=== PATIENT | male | born 1930 | race Caucasian/White ===

== ENCOUNTER 2017-09-15 13:58 | Emergency (ER) | payer MEDICARE, BC ==
[2017-09-15] MEDS ORDERED: Lidocaine 1% 20 ML MDV INJECT ONE (14:38)
--- NOTE | 2017-09-15 14:44 | EDM.PDOC ---
ED HPI GENERAL MEDICAL PROBLEM - General Chief Complaint: Laceration Stated Complaint: INJURY TO LIP FROM FALL Time Seen by Provider: 09/15/17 14:30 Source of Information: Reports: Patient History Limitations: Reports: No Limitations - History of Present Illness INITIAL COMMENTS - FREE TEXT/NARRATIVE: HISTORY AND PHYSICAL: History of present illness: [Patient comes to the emergency room for evaluation of an upper lip laceration. Around 10:30 this morning he stood quickly from a seated position to answer the door nicole. He began to feel lightheaded, which is normal for him upon first awakening in the morning, and fell, hitting his mouth and nose on the floor. provides his history as patient has some memory loss. Denies LOC. No pain to face and teeth. Bleeding from L nare. Patient and reside at [facility]. Daughter is at bedside. He has no other complaints or concerns at this time. Review of systems: As per history of present illness and below otherwise all systems reviewed and negative. Past medical history: As per history of present illness and as reviewed below otherwise noncontributory. Surgical history: As per history of present illness and as reviewed below otherwise noncontributory. Social history: No reported history of drug or alcohol abuse. Family history: As per history of present illness and as reviewed below otherwise noncontributory. Physical exam: HEENT: Right mid upper lip shows a 2 mm hole. Upper lip appears mutilated and wound edges are difficult to approximate. Small superficial abrasion to left nare. Small abrasions and contusions to nose. Nontender w/ palpation. Throat is clear. Teeth show no chips and are not loose with palpation. No tenderness over zygomatic arches or facial bones. Extremities: Atraumatic, negative for cords or calf pain. Neurovascular unremarkable. Neuro: Awake, alert, oriented. Is appropriate in conversation. Poor historian. Exam nonfocal. Diagnostics: [head CT w/o contrast with special attention to facial bones] Impression: [lip laceration fall lightheadedness] Plan: Wound is closed. See procedure note. Head and face CT's show no abnormalities. Return to ER in 5 days for suture removal. And family is in agreement with today 's plan. ] Definitive disposition and diagnosis as appropriate pending reevaluation and review of above. - Related Data Allergies Allergy/AdvReac Type Severity Reaction Status Date / Time No Known Allergies Allergy Verified 12/08/17 14:17 Home Meds: Home Meds Digoxin [Digoxin] 125 mcg PO BEDTIME 05/24/15 [History] Levothyroxine 75 mcg PO ACBREAKFAST 05/24/15 [History] Tamsulosin [Flomax] 1 cap PO BEDTIME 05/24/15 [History] Warfarin [Coumadin] 4 mg PO BEDTIME 05/24/15 [History] Ca Carbonate/Vitamin D3/Vit K [Calcium + D Soft Chewable Tab] 1 each PO DAILY [History] Donepezil [Aricept] 10 mg PO BEDTIME 09/03/15 [History] Lutein/Minerals/Vit A,C & E [Ocuvite] 2 each PO DAILY 09/03/15 [History] Memantine [Namenda] 10 mg PO DAILY 09/03/15 [History] Multivitamin [Multi-Vitamin Daily] 1 each PO DAILY 09/03/15 [History] Past Medical History 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 Other Cardiovascular History: low blood pressure Other Gastrointestinal History: tumor Endocrine/Metabolic History: Reports: Hypothyroidism - Infectious Disease History Infectious Disease History: Reports: Chicken Pox - Past Surgical History Cardiovascular Surgical History: Reports: AAA Repair Social & Family History - Family History Family Medical History: Noncontributory - Tobacco Use Smoking Status *Q: Never Smoker Second Hand Smoke Exposure: No - Recreational Drug Use Recreational Drug Use: No ED ROS GENERAL - Review of Systems Review Of Systems: ROS reveals no pertinent complaints other than HPI. ED EXAM, SKIN/RASH Exam: See Below Course - Vital Signs Last Recorded V/S: Last Vital Signs Temp 97.3 F 09/15/17 14:17 Pulse 70 09/15/17 14:17 Resp 18 09/15/17 14:17 BP 138/94 H 09/15/17 14:17 Pulse Ox 95 09/15/17 14:17 - Orders/Labs/Meds Meds: Medications Discontinued Medications Generic Name Dose Route Start Last Admin Trade Name Alex PRN Reason Stop Dose Admin Lidocaine HCl 20 ml 09/15/17 14:38 09/15/17 15:30 Xylocaine 1% INJECT 09/15/17 14:39 5 ml ONETIME ONE Administration Departure - Departure Time of Disposition: 15:47 Disposition: Home, Self-Care 01 Condition: Good Clinical Impression: Laceration of lip - Discharge Information Instructions: Laceration Care, Adult Referrals: Sravan Eubanks MD [Primary Care Provider] - Forms: ED Department Discharge Additional Instructions: The following information is given to patients seen in the emergency department who are being discharged to home. This information is to outline your options for follow-up care. We provide all patients seen in our emergency department with a follow-up referral. The need for follow-up, as well as the timing and circumstances, are variable depending upon the specifics of your emergency department visit. If you don't have a primary care physician on staff, we will provide you with a referral. We always advise you to contact your personal physician following an emergency department visit to inform them of the circumstance of the visit and for follow-up with them and/or the need for any referrals to a consulting specialist. The emergency department will also refer you to a specialist when appropriate. This referral assures that you have the opportunity for follow-up care with a specialist. All of these measure are taken in an effort to provide you with optimal care, which includes your follow-up. Under all circumstances we always encourage you to contact your private physician who remains a resource for coordinating your care. When calling for follow-up care, please make the office aware that this follow-up is from your recent emergency room visit. If for any reason you are refused follow-up, please contact the [facility] emergency department at and asked to speak to the emergency department charge nurse. [id number] scan shows no brain injury and no facial fractures. Return to ER in 5 days to have sutures evaluated and removed. Ice packs will help with swelling and discomfort. Return to ER as needed as discussed.
--- NOTE | 2017-09-15 15:32 | CT ---
EXAMINATION: Non contrast CT head and facial bones. Coronal and sagittal reformats. HISTORY: Fall, laceration FINDINGS: Head: No evidence of intra or extra axial hemorrhage, mass, midline shift, hydrocephalus or edema. M ild periventricular matter hypodensities noted. No hypoattenuation changes in the major vascular ter ritories to suggest acute infarct. No abnormal intracranial calcifications are detected. No evidenc e of substantial vascular calcifications. The paranasal sinuses and mastoid air cells are well aerat ed without substantial findings. The pituitary fossa appears unremarkable. The calvarium is intact. No evidence of skull fracture. Facial bones: The nasal bones appear intact. The zygomatic arches and pterygoid plates are preserved. Advanced degenerative changes noted within the temporomandibular joints. The mandible appears intact . The maxilla is intact. The orbital cuba appear preserved. Bone mineralization appears mildly osteo penic. Orbits and globes are symmetric. Visualized upper cervical spine is intact. IMPRESSION: 1. No acute intracranial findings. 2. No evidence of an acute facial bone injury. 3. Mild small vessel ischemic changes.
[2017-09-15 16:27] VITALS: BP 139/92
== END 2017-09-15 16:10 | disposition home or self-care (01) ==
LOC: MW.ED 13:58
DX: S01.511A Laceration without foreign body of lip, initial encounter (principal); R42 Dizziness and giddiness; E03.9 Hypothyroidism, unspecified; Z79.899 Other long term (current) drug therapy; Z79.01 Long term (current) use of anticoagulants; W01.198A Fall on same level from slipping, tripping and stumbling with subsequent striking against other object, initial encounter
CPT/HCPCS: 12011; 70450; 70450-26; 70486; 70486-26; 99283-25; 99284

== ENCOUNTER 2017-09-20 13:55 | Emergency (ER) | payer MEDICARE, BC ==
[2017-09-20 14:08] VITALS: BP 117/74
--- NOTE | 2017-09-20 14:34 | EDM.PDOC ---
ED HPI GENERAL MEDICAL PROBLEM - General Chief Complaint: Wound Recheck Stated Complaint: STITCHES REMOVED Time Seen by Provider: 09/20/17 14:06 Source of Information: Reports: Patient History Limitations: Reports: No Limitations - History of Present Illness INITIAL COMMENTS - FREE TEXT/NARRATIVE: HISTORY AND PHYSICAL: History of present illness: Patient is an 86-year-old male who presents to the emergency room with his daughter requesting for his stitches to be evaluated. Patient was seen Monday in the emergency room after having a large laceration to his upper lip. That time he did have 7 stitches placed and instructed to have them removed in approximately 5 days. Today would be day #5, but they are concerned that they are not "ready to come out". Patient denies any signs or symptoms of infection. The lacerated area does have a large scab over the external sutures, able to visualize 3 sutures in the oral mucosa. This 3 visualized sutures appear as if they need more days as I am able to separate the skin. I am concerned that if the stitches are removed at this time that he may re-open the lacerated site. Review of systems: As per history of present illness and below otherwise all systems reviewed and negative. Past medical history: As per history of present illness and as reviewed below otherwise noncontributory. Surgical history: As per history of present illness and as reviewed below otherwise noncontributory. Social history: No reported history of drug or alcohol abuse. Family history: As per history of present illness and as reviewed below otherwise noncontributory. Physical exam: HEENT: Atraumatic, normocephalic, pupils reactive, negative for conjunctival pallor or scleral icterus, mucous membranes moist, throat clear, neck supple, nontender, trachea midline. Lungs: Clear to auscultation, breath sounds equal bilaterally, chest nontender. Heart: S1S2, regular, negative for clicks, rubs, or JVD. Abdomen: Soft, nondistended, nontender. Negative for masses or hepatosplenomegaly. Negative for costovertebral tenderness. Pelvis: Stable nontender. Genitourinary: Deferred. Rectal: Deferred. Extremities: Atraumatic, negative for cords or calf pain. Neurovascular unremarkable. Skin: Patient has a healing laceration to the mid upper lip which has a large scab over the area. There are supposed to be 7 interrupted sutures. At this time I'm only able to visualize 3, the other 4 are under the healed scab. The skin and the oral mucosa is well approximated, although when I do pulled skin apart does appear as if it may be easily if the stitch was not holding it together. There are no signs and symptoms of infection. Neuro: Awake, alert, oriented. Cranial nerves II through XII unremarkable. Cerebellum unremarkable. Motor and sensory unremarkable throughout. Exam nonfocal. The daughter states that they will wait and return on Monday to have the sutures reevaluated and removed. Diagnostics: [] Therapeutics: [] Impression: Wound recheck Plan: 1. These stitches appear that they need a few more days prior to being removed. You may place some bacitracin over the Area on the left side of the lip. Do not place anything moist such as bacitracin on the inner mouth/right side of the upper lip. 2. Please return on Monday for suture removal. 3. Continue to monitor for signs of infection. 4. Return to the ED as needed and as discussed. Definitive disposition and diagnosis as appropriate pending reevaluation and review of above. Duration: Day(s): Location: Reports: Face Lip Pain Score (Numeric/FACES): 5 - Related Data Allergies Allergy/AdvReac Type Severity Reaction Status Date / Time No Known Allergies Allergy Verified 09/20/17 14:08 Home Meds: Home Meds Digoxin [Digoxin] 125 mcg PO BEDTIME 05/24/15 [History] Levothyroxine 75 mcg PO ACBREAKFAST 05/24/15 [History] Tamsulosin [Flomax] 1 cap PO BEDTIME 05/24/15 [History] Warfarin [Coumadin] 4 mg PO BEDTIME 05/24/15 [History] Ca Carbonate/Vitamin D3/Vit K [Calcium + D Soft Chewable Tab] 1 each PO DAILY [History] Donepezil [Aricept] 10 mg PO BEDTIME 09/03/15 [History] Lutein/Minerals/Vit A,C & E [Ocuvite] 2 each PO DAILY 09/03/15 [History] Memantine [Namenda] 10 mg PO DAILY 09/03/15 [History] Multivitamin [Multi-Vitamin Daily] 1 each PO DAILY 09/03/15 [History] Past Medical History 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 Other Cardiovascular History: low blood pressure Other Gastrointestinal History: tumor Endocrine/Metabolic History: Reports: Hypothyroidism - Infectious Disease History Infectious Disease History: Reports: Chicken Pox - Past Surgical History Cardiovascular Surgical History: Reports: AAA Repair Social & Family History - Family History Family Medical History: Noncontributory - Tobacco Use Smoking Status *Q: Never Smoker Second Hand Smoke Exposure: No - Caffeine Use Caffeine Use: Reports: Coffee - Recreational Drug Use Recreational Drug Use: No ED ROS GENERAL - Review of Systems Review Of Systems: ROS reveals no pertinent complaints other than HPI. ED EXAM, GENERAL - Physical Exam Exam: See Below (See dictation) Course - Vital Signs Last Recorded V/S: Last Vital Signs Temp 98.7 F 09/20/17 14:04 Pulse 66 09/20/17 14:04 Resp 16 09/20/17 14:04 BP 117/74 09/20/17 14:04 Pulse Ox 96 09/20/17 14:04 Departure - Departure Time of Disposition: 14:33 Disposition: Home, Self-Care 01 Clinical Impression: Encounter for evaluation of wound - Discharge Information Referrals: Sravan Eubanks MD [Primary Care Provider] - Forms: ED Department Discharge Additional Instructions: My general discharge The following information is given to patients seen in the emergency department who are being discharged to home. This information is to outline your options for follow-up care. We provide all patients seen in our emergency department with a follow-up referral. The need for follow-up, as well as the timing and circumstances, are variable depending upon the specifics of your emergency department visit. If you don't have a primary care physician on staff, we will provide you with a referral. We always advise you to contact your personal physician following an emergency department visit to inform them of the circumstance of the visit and for follow-up with them and/or the need for any referrals to a consulting specialist. The emergency department will also refer you to a specialist when appropriate. This referral assures that you have the opportunity for follow-up care with a specialist. All of these measure are taken in an effort to provide you with optimal care, which includes your follow-up. Under all circumstances we always encourage you to contact your private physician who remains a resource for coordinating your care. When calling for follow-up care, please make the office aware that this follow-up is from your recent emergency room visit. If for any reason you are refused follow-up, please contact the [facility] Emergency Department at and asked to speak to the emergency department charge nurse. [facility] [address] [place] [id number] 1. These stitches appear that they need a few more days prior to being removed. You may place some bacitracin over the Area on the left side of the lip. Do not place anything moist such as bacitracin on the inner mouth/right side of the upper lip. 2. Please return on Monday for suture removal. 3. Continue to monitor for signs of infection. 4. Return to the ED as needed and as discussed.
== END 2017-09-20 14:40 | disposition home or self-care (01) ==
LOC: MW.ED 13:55
DX: S01.511D Laceration without foreign body of lip, subsequent encounter (principal); Z79.899 Other long term (current) drug therapy; X58.XXXD Exposure to other specified factors, subsequent encounter
CPT/HCPCS: 99282

== ENCOUNTER 2017-09-25 09:56 | Emergency (ER) | payer MEDICARE, BC ==
--- NOTE | 2017-09-25 11:55 | EDM.PDOC ---
ED HPI GENERAL MEDICAL PROBLEM - General Chief Complaint: Wound Recheck Stated Complaint: REMOVAL OF STITCHES Time Seen by Provider: 09/25/17 11:50 Source of Information: Reports: Patient - History of Present Illness INITIAL COMMENTS - FREE TEXT/NARRATIVE: HISTORY AND PHYSICAL: History of present illness: [Patient was seen for wound care/recheck 10 days prior he fell splitting his lip was a macerated lesion which was difficult to approximate. I believe he was treated by Lorraine or Dr. Forbes at that time. Prolene sutures were used. He was seen in follow-up in 5 days and elected to wait another 5 days for suture removal as her remained open lesion. Today lesion is closed there is definitely scarring and a divot in the lip the patient is unconcerned about this at his age. There is a large scab and actually a piece of tissue that was removed sutures were contained within the scab and the tissue, there were also 2 sutures that had grown into the lip I was able to remove these without difficulty, to the best my ability I believe all the sutures were removed, there is still an area that may scab again it's healing more by secondary intent at this time. No redness warmth or exudate Either nausea vomiting chills sweats ] Review of systems: As per history of present illness and below otherwise all systems reviewed and negative. Past medical history: As per history of present illness and as reviewed below otherwise noncontributory. Surgical history: As per history of present illness and as reviewed below otherwise noncontributory. Social history: No reported history of drug or alcohol abuse. Family history: As per history of present illness and as reviewed below otherwise noncontributory. Physical exam: HEENT: Atraumatic, normocephalic, pupils reactive, negative for conjunctival pallor or scleral icterus, mucous membranes moist, throat clear, neck supple, nontender, trachea midline. Lungs: Clear to auscultation, breath sounds equal bilaterally, chest nontender. Heart: S1S2, regular, negative for clicks, rubs, or JVD. Abdomen: Soft, nondistended, nontender. Negative for masses or hepatosplenomegaly. Negative for costovertebral tenderness. Pelvis: Stable nontender. Genitourinary: Deferred. Rectal: Deferred. Extremities: Atraumatic, negative for cords or calf pain. Neurovascular unremarkable. Neuro: Awake, alert, oriented. Cranial nerves II through XII unremarkable. Cerebellum unremarkable. Motor and sensory unremarkable throughout. Exam nonfocal. Skin as per history of present illness otherwise unremarkable Diagnostics: [Clinical ] Therapeutics: []Lactic Keflex 500 by mouth twice a day #20 no refill Impression: []The laceration/suture removal Definitive disposition and diagnosis as appropriate pending reevaluation and review of above. - Related Data Allergies Allergy/AdvReac Type Severity Reaction Status Date / Time No Known Allergies Allergy Verified 09/25/17 11:01 Home Meds: Home Meds Digoxin [Digoxin] 125 mcg PO BEDTIME 05/24/15 [History] Levothyroxine 75 mcg PO ACBREAKFAST 05/24/15 [History] Tamsulosin [Flomax] 1 cap PO BEDTIME 05/24/15 [History] Warfarin [Coumadin] 4 mg PO BEDTIME 05/24/15 [History] Ca Carbonate/Vitamin D3/Vit K [Calcium + D Soft Chewable Tab] 1 each PO DAILY [History] Donepezil [Aricept] 10 mg PO BEDTIME 09/03/15 [History] Lutein/Minerals/Vit A,C & E [Ocuvite] 2 each PO DAILY 09/03/15 [History] Memantine [Namenda] 10 mg PO DAILY 09/03/15 [History] Multivitamin [Multi-Vitamin Daily] 1 each PO DAILY 09/03/15 [History] Past Medical History 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 Other Cardiovascular History: low blood pressure Other Gastrointestinal History: tumor Endocrine/Metabolic History: Reports: Hypothyroidism - Infectious Disease History Infectious Disease History: Reports: Chicken Pox - Past Surgical History Cardiovascular Surgical History: Reports: AAA Repair Social & Family History - Family History Family Medical History: Noncontributory - Tobacco Use Smoking Status *Q: Never Smoker Second Hand Smoke Exposure: No - Caffeine Use Caffeine Use: Reports: Coffee - Recreational Drug Use Recreational Drug Use: No ED ROS GENERAL - Review of Systems Review Of Systems: ROS reveals no pertinent complaints other than HPI. ED EXAM, GENERAL - Physical Exam Exam: See Below Course - Vital Signs Last Recorded V/S: Last Vital Signs Temp 98.7 F 09/25/17 11:01 Pulse 71 09/25/17 11:01 Resp 18 09/25/17 11:01 BP 103/68 09/25/17 11:01 Pulse Ox 95 09/25/17 11:01 Departure - Departure Time of Disposition: 11:54 Disposition: Home, Self-Care 01 Condition: Good Clinical Impression: Laceration - Discharge Information Referrals: Sravan Eubanks MD [Primary Care Provider] - Forms: ED Department Discharge Additional Instructions: Medication as prescribed Return if symptoms persist or worsen or fever nausea vomiting chills sweats despite antibiotics Follow-up with primary care as needed The following information is given to patients seen in the emergency department who are being discharged to home. This information is to outline your options for follow-up care. We provide all patients seen in our emergency department with a follow-up referral. The need for follow-up, as well as the timing and circumstances, are variable depending upon the specifics of your emergency department visit. If you don't have a primary care physician on staff, we will provide you with a referral. We always advise you to contact your personal physician following an emergency department visit to inform them of the circumstance of the visit and for follow-up with them and/or the need for any referrals to a consulting specialist. The emergency department will also refer you to a specialist when appropriate. This referral assures that you have the opportunity for follow-up care with a specialist. All of these measure are taken in an effort to provide you with optimal care, which includes your follow-up. Under all circumstances we always encourage you to contact your private physician who remains a resource for coordinating your care. When calling for follow-up care, please make the office aware that this follow-up is from your recent emergency room visit. If for any reason you are refused follow-up, please contact the [facility] emergency department at and asked to speak to the emergency department charge nurse.
[2017-09-25 12:21] VITALS: BP 112/80
== END 2017-09-25 12:21 | disposition home or self-care (01) ==
LOC: MW.ED 09:56
DX: S01.511D Laceration without foreign body of lip, subsequent encounter (principal); Z79.899 Other long term (current) drug therapy; Z79.01 Long term (current) use of anticoagulants; X58.XXXD Exposure to other specified factors, subsequent encounter
CPT/HCPCS: 99281

== ENCOUNTER 2018-11-16 18:52 | Observation (INO) | payer MEDICARE, BC ==
[2018-11-16] MEDS ORDERED: Sodium Chloride 0.9% 10 ML Syringe FLUSH PRN (19:13)
[2018-11-16] MEDS ORDERED: Sodium Chloride 0.9% 2.5 ML Syringe FLUSH PRN (19:13)
[2018-11-16] MEDS ORDERED: Sodium Chloride 0.9% 1,000 ML IV SCH (19:15)
--- NOTE | 2018-11-16 19:19 | EDM.PDOC ---
ED HPI GENERAL MEDICAL PROBLEM - General Chief Complaint: Trauma Stated Complaint: TRAUMA Time Seen by Provider: 11/16/18 19:04 - History of Present Illness INITIAL COMMENTS - FREE TEXT/NARRATIVE: HISTORY AND PHYSICAL: History of present illness: The patient is an 87-year-old male who lives at [facility] in assisted living and has a history of chronic A. fib and pacemaker chronic anticoagulation hypothyroidism valve replacement with a porcine valve and arthritis who presents after having one fall yesterday and 3-4 falls today. According to the daughter at bedside he has not been hitting his head passing out or blacking out but has been falling on his but he does complain of some lower back and lower lumbar pain. The patient has arthritis throughout and has some difficulty ambulating and has had some falls in the past but is not a frequent fall or. He denies any dizziness lightheadedness chest pain or shortness of breath and has been eating and drinking normally. He has no black or bloody stools no diarrhea and no vomiting. He is very vague on why he is falling but does says that he feels weak. According to the daughter he has been trying to help his and she is a thin woman and he has had some bruising to his left arm which is not new or different. They noticed some bruising on his left leg and overall they felt that he did not look at his baseline and they brought him here for evaluation. This case was called as a trauma alert because the patient did fall although he did not hit his head and he is on anticoagulation therapy. The patient here says that the only thing that hurts him is his private because he keeps falling and because he is here in the ED. Review of systems: As per history of present illness and below otherwise all systems reviewed and negative. Past medical history: As per history of present illness and as reviewed below otherwise noncontributory. Surgical history: As per history of present illness and as reviewed below otherwise noncontributory. Social history: No reported history of drug or alcohol abuse. Family history: As per history of present illness and as reviewed below otherwise noncontributory. Physical exam: General: Well-developed well-nourished cachectic man who is nontoxic and moving all extremities without issues. He speaking clearly and easily in the ED and is alert and oriented. Vital signs were noted by me. HEENT: Atraumatic, normocephalic, pupils reactive, negative for conjunctival pallor or scleral icterus, mucous membranes moist, throat clear, neck supple, nontender, trachea midline. There are no midline step-offs tenderness defects of the cervical spine and no visible evidence of any scalp or facial injuries. Lungs: Clear to auscultation, breath sounds equal bilaterally, chest nontender. Patient has a pacemaker noted in his upper chest wall area and there is no tenderness defects or deformities appreciated or soft tissue injuries on the chest wall Heart: S1S2, slightly tachycardic on my evaluation with some irregularity negative for clicks, rubs, or JVD. Abdomen: Soft, nondistended, nontender. Negative for masses or hepatosplenomegaly. Negative for costovertebral tenderness. There are some old well-healed scars appreciated and there is no tenderness rebound or guarding on palpation and no soft tissue injuries are appreciated Pelvis: Stable nontender. No lateral hip tenderness Genitourinary: Deferred. Rectal: Deferred. Extremities: There is a superficial scrape noted on his right aguilar area and there is an ecchymosis noted at his left inner thigh area, there is no tenderness and nasal areas and no soft tissue swelling, there are arthritic changes noted in the left knee with some mild tenderness but no defects or deformities, there is chronic ecchymosis seen of his left upper extremity throughout which the daughter says is not new from today and he has no tenderness defects or deformities in this region, there is an ecchymosis at the right scapula area without tenderness defects or deformities. The patient has full range of motion of all of these extremities and has no tenderness throughout. The legs are negative for cords or calf pain. Neurovascular unremarkable. Neuro: Awake, alert, oriented. Cranial nerves II through XII unremarkable. Cerebellum unremarkable. Motor and sensory unremarkable throughout. Exam nonfocal. Patient ambulated in with his walker with family without deficits or defects Skin: No evidence of any diaphoresis and turgor is somewhat diminished and he is overall pale appearance but his conjunctiva are pink Diagnostics: EKG CBC CMP INR TSH troponin digoxin level UA CT scan of the head chest x-ray of the left femur and knee one view pelvis LS spine one view chest x-ray right shoulder Therapeutics: IV O2 monitor, gentle IV fluids As his case was called as a trauma alert I will involve the trauma surgeon going forward as this patient will likely need an admission for medical management of his frequent falls and his INR. The patient has an elevated INR 13.5 to a hemoglobin of 8.2, and there are no comparisons in the last one year, a BUN of 40 with a creatinine of 1.4 and a TSH that's elevated 5.78. With these lab findings there are a lot of reasons for this patient to be having frequent falls. We are currently awaiting a urine sample to check for any UTI. I did discuss this case with our trauma surgeon Dr. Hudson at 2009 PM and she feels this is more of a medical management case an admission and she would be available as needed 2036: Case was discussed with our hospitalist Dr. Rubin who accepts the patient for observation admission and is aware of all testing results. He is also aware that the patient did not give a urine sample yet as he had urine output with a bowel movement while in CAT scan. Nursing will notify the floor to get the urine sample and send it for study when available. I've also discussed all testing results with the patient and daughter at bedside and they are agreeable to observation. Impression: Frequent falls, mild dehydration, Coumadin toxicity, elevated TSH, generalized weakness, multiple contusions Definitive disposition and diagnosis as appropriate pending reevaluation and review of above. - Related Data Allergies Allergy/AdvReac Type Severity Reaction Status Date / Time No Known Allergies Allergy Verified 09/25/17 11:01 Home Meds: Home Meds Digoxin 125 mcg PO BEDTIME 05/24/15 [History] Levothyroxine 75 mcg PO ACBREAKFAST 05/24/15 [History] Tamsulosin [Flomax] 1 cap PO BEDTIME 05/24/15 [History] Warfarin [Coumadin] 4 mg PO BEDTIME 05/24/15 [History] Ca Carbonate/Vitamin D3/Vit K [Calcium + D Soft Chewable Tab] 1 each PO DAILY [History] Donepezil [Aricept] 10 mg PO BEDTIME 09/03/15 [History] Lutein/Minerals/Vit A,C & E [Ocuvite] 2 each PO DAILY 09/03/15 [History] Memantine [Namenda] 10 mg PO DAILY 09/03/15 [History] Multivitamin [Multi-Vitamin Daily] 1 each PO DAILY 09/03/15 [History] Past Medical History 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 Other Cardiovascular History: low blood pressure Other Gastrointestinal History: tumor Endocrine/Metabolic History: Reports: Hypothyroidism - Infectious Disease History Infectious Disease History: Reports: Chicken Pox - Past Surgical History Cardiovascular Surgical History: Reports: AAA Repair Social & Family History - Family History Family Medical History: Noncontributory - Caffeine Use Caffeine Use: Reports: Coffee Review of Systems - Review of Systems Review Of Systems: ROS reveals no pertinent complaints other than HPI. ED EXAM, GENERAL - Physical Exam Exam: See Below (See dictation) Course - Vital Signs Last Recorded V/S: Last Vital Signs Temp 36.1 C 11/16/18 18:52 Pulse 99 11/16/18 18:52 Resp 17 11/16/18 18:52 BP 100/76 11/16/18 18:52 Pulse Ox 100 11/16/18 18:52 - Orders/Labs/Meds Orders: Active Orders 24 hr Category Date Time Status Patient Status [ADT] Stat ADT 11/16/18 19:47 Active Cardiac Monitoring [RC] . DIRECTED Care 11/16/18 19:11 Active EKG Documentation Completion [RC] STAT Care 11/16/18 19:11 Active Oxygen Therapy, ED [RC] ASDIRECTED Care 11/16/18 19:11 Active Pulse Oximetry [RC] ASDIRECTED Care 11/16/18 19:11 Active UA RFX NELI AND CULT IF INDIC [URIN] Stat Lab 11/16/18 19:11 Ordered Sodium Chloride 0.9% [Normal Saline] 1,000 ml Med 11/16/18 19:15 Active IV ASDIRECTED Sodium Chloride 0.9% [Saline Flush] Med 11/16/18 19:13 Active 10 ml FLUSH ASDIRECTED PRN Sodium Chloride 0.9% [Saline Flush] Med 11/16/18 19:13 Active 2.5 ml FLUSH ASDIRECTED PRN Saline Lock Insert [OM.PC] Stat Oth 11/16/18 19:11 Ordered Medication Orders Sodium Chloride (Normal Saline) 1,000 mls @ 70 mls/hr IV ASDIRECTED EFE Stop: 11/16/18 21:00 Last Infusion: 11/16/18 20:30 Dose: 70 mls/hr Admin: 11/16/18 19:20 Dose: 999 mls/hr Sodium Chloride (Saline Flush) 10 ml FLUSH ASDIRECTED PRN PRN Reason: Keep Vein Open Sodium Chloride (Saline Flush) 2.5 ml FLUSH ASDIRECTED PRN PRN Reason: Keep Vein Open Labs: Laboratory Tests 11/16/18 11/16/18 11/16/18 Range/Units 19:15 19:15 19:15 WBC 7.36 (4.0-11.0) K/uL RBC 2.82 L (4.50-5.90) M/uL Hgb 8.2 L (13.0-17.0) g/dL Hct 25.0 L (38.0-50.0) % MCV 88.7 (80.0-98.0) fL MCH 29.1 (27.0-32.0) pg MCHC 32.8 (31.0-37.0) g/dL RDW Std Deviation 52.7 (28.0-62.0) fl RDW Coeff of Jay 17 H (11.0-15.0) % Plt Count 189 (150-400) K/uL MPV 9.20 (7.40-12.00) fL Neut % (Auto) 75.1 (48.0-80.0) % Lymph % (Auto) 15.1 L (16.0-40.0) % [place] % (Auto) 7.6 (0.0-15.0) % Eos % (Auto) 1.9 (0.0-7.0) % Baso % (Auto) 0.3 (0.0-1.5) % Neut # (Auto) 5.5 (1.4-5.7) K/uL Lymph # (Auto) 1.1 (0.6-2.4) K/uL [place] # (Auto) 0.6 (0.0-0.8) K/uL Eos # (Auto) 0.1 (0.0-0.7) K/uL Baso # (Auto) 0.0 (0.0-0.1) K/uL Nucleated RBC % 0.0 /100WBC Nucleated RBCs # 0 K/uL INR 13.52 H* Sodium 134 L (136-148) mmol/L Potassium 4.1 (3.5-5.1) mmol/L Chloride 103 (98-107) mmol/L Carbon Dioxide 21.5 (21.0-32.0) mmol/L BUN 40 H (7.0-18.0) mg/dL Creatinine 1.4 H (0.8-1.3) mg/dL Est Cr Clr Drug Dosing TNP Estimated GFR (MDRD) 48.2 ml/min Glucose 127 H (74-106) mg/dL Calcium 8.5 (8.5-10.1) mg/dL Total Bilirubin 0.8 (0.2-1.0) mg/dL AST 28 (15-37) IU/L ALT 21 (14-63) IU/L Alkaline Phosphatase 77 (46-116) U/L Troponin I < 0.050 (0.000-0.056) ng/mL Total Protein 6.5 (6.4-8.2) g/dL Albumin 3.2 L (3.4-5.0) g/dL Globulin 3.3 (2.6-4.0) g/dL Albumin/Globulin Ratio 1.0 (0.9-1.6) TSH 3rd Generation 5.78 H (0.36-3.74) uIU/mL Digoxin 0.7 L (0.9-2.0) ng/mL Meds: Medications Generic Name Dose Route Start Last Admin Trade Name Freq PRN Reason Stop Dose Admin Sodium Chloride 1,000 mls @ 70 mls/hr 11/16/18 19:15 11/16/18 20:30 Normal Saline IV 11/16/18 21:00 Infused ASDIRECTED EFE Infusion Sodium Chloride 10 ml 11/16/18 19:13 Saline Flush FLUSH ASDIRECTED PRN Keep Vein Open Sodium Chloride 2.5 ml 11/16/18 19:13 Saline Flush FLUSH ASDIRECTED PRN Keep Vein Open Departure - Departure Time of Disposition: 20:39 Disposition: Refer to Observation Condition: Good Clinical Impression: Frequent falls, Dehydration Coumadin toxicity Qualifiers: Encounter type: initial encounter Injury intent: accidental or unintentional Qualified Code(s): T45.511A - Poisoning by anticoagulants, accidental ( unintentional), initial encounter - Discharge Information Referrals: Sravan Eubanks MD [Primary Care Provider] - Forms: ED Department Discharge - My Orders Last 24 Hours: My Active Orders 11/16/18 19:11 Cardiac Monitoring [RC] . DIRECTED EKG Documentation Completion [RC] STAT Oxygen Therapy, ED [RC] ASDIRECTED Pulse Oximetry [RC] ASDIRECTED UA RFX NELI AND CULT IF INDIC [URIN] Stat Saline Lock Insert [OM.PC] Stat 11/16/18 19:13 Sodium Chloride 0.9% [Saline Flush] 10 ml FLUSH ASDIRECTED PRN Sodium Chloride 0.9% [Saline Flush] 2.5 ml FLUSH ASDIRECTED PRN 11/16/18 19:15 Sodium Chloride 0.9% [Normal Saline] 1,000 ml IV ASDIRECTED 11/16/18 19:47 Patient Status [ADT] Stat - Assessment/Plan Last 24 Hours: My Active Orders 11/16/18 19:11 Cardiac Monitoring [RC] . DIRECTED EKG Documentation Completion [RC] STAT Oxygen Therapy, ED [RC] ASDIRECTED Pulse Oximetry [RC] ASDIRECTED UA RFX NELI AND CULT IF INDIC [URIN] Stat Saline Lock Insert [OM.PC] Stat 11/16/18 19:13 Sodium Chloride 0.9% [Saline Flush] 10 ml FLUSH ASDIRECTED PRN Sodium Chloride 0.9% [Saline Flush] 2.5 ml FLUSH ASDIRECTED PRN 11/16/18 19:15 Sodium Chloride 0.9% [Normal Saline] 1,000 ml IV ASDIRECTED 11/16/18 19:47 Patient Status [ADT] Stat
[2018-11-16 19:59] LABS: CHLORIDE,CL 103 mmol/L (98-107); SODIUM,NA 134 mmol/L (136-148)
--- NOTE | 2018-11-16 20:06 | CT ---
INDICATION: Injury, fall. Patient is on blood thinners. TECHNIQUE: Head CT without contrast. COMPARISON: None FINDINGS: CSF spaces: Within normal limits for age. Brain parenchyma: There are nonspecific low attenuation white matter changes consistent with chronic microvascular disease. No sign of mass, hemorrhage, or midline shift. There are benign bilateral basal ganglia calcifications. Skull base and calvarium: The visualized paranasal sinuses and mastoid air cells demonstrate no acute or significant findings. The visualized orbits are grossly unremarkable. No skull fractures. IMPRESSION: No sign of intracranial hemorrhage or other sign of acute injury. Please note that all CT scans at this facility use dose modulation, iterative reconstruction, and/or weight-based dosing when appropriate to reduce radiation dose to as low as reasonably achievable. Dictated by Leland Bob MD @ Nov 16 2018 7:59PM Signed by Dr. Leland Bob @ Nov 16 2018 8:04PM
--- NOTE | 2018-11-16 20:22 | CR ---
Indication: Pain. Technique: An AP view of the pelvis was obtained. Comparison: None Findings: What appears to represent chronic deformity of the left superior pubic ramus is identified. Both femoral heads are seated within the acetabula. No acute fracture or subluxation is identified. Impression: No acute fracture. Dictated by Cortney Salmeron MD @ Nov 16 2018 8:19PM Signed by Dr. Cortney Salmeron @ Nov 16 2018 8:20PM
--- NOTE | 2018-11-16 20:22 | CR ---
Indication: Pain. Technique: An AP view of the left femur was obtained. Comparison: None Findings: The femoral head is seated within the acetabulum. Degenerative changes are identified at the level of the hip and knee. No acute fracture is identified. Impression: No acute fracture identified. Dictated by Cortney Salmeron MD @ Nov 16 2018 8:20PM Signed by Dr. Cortney Salmeron @ Nov 16 2018 8:21PM
--- NOTE | 2018-11-16 20:22 | CR ---
Indication: Pain. Technique: Three views of the lumbar spine were obtained. 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 The vertebral body heights are well maintained. Intervertebral disc space narrowing is identified throughout. Facet joint arthropathy is identified throughout. No acute fracture or subluxation is identified. Impression: Degenerative change. Dictated by Cortney Salmeron MD @ Nov 16 2018 8:21PM Signed by Dr. Cortney Salmeron @ Nov 16 2018 8:22PM
--- NOTE | 2018-11-16 20:31 | CR ---
INDICATION: Chest pain, shortness of breath TECHNIQUE: Chest radiograph 1 view COMPARISON: None FINDINGS: Mediastinum: There is a left cardiac pacer present with leads in the right atrium and right ventricle. 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 The heart silhouette is normal in size and morphology. Lung: Both lungs are unremarkable in appearance. No sign of pleural effusion seen. No pneumothorax is identified. Skin fold is seen over the right hemithorax. Musculoskeletal: Severe diffuse osteopenia is noted. IMPRESSION: 1. No acute cardiopulmonary disease is seen. Dictated by Byron Dior MD @ 11/16/2018 8:29:59 PM Dictated by: Byron Dior MD @ 11/16/2018 20:30:05 (Electronically Signed)
--- NOTE | 2018-11-16 20:31 | CR ---
INDICATION: Knee pain TECHNIQUE: Knee radiograph 3 views left COMPARISON: None FINDINGS: Bone: No acute fractures or aggressive bone lesions are identified. Joint: The joint spaces of the medial, lateral, and patellofemoral compartments are unremarkable. Mild joint space narrowing is present in the patellofemoral compartment. A trace knee effusion is noted. Soft tissue: Unremarkable. No radiopaque foreign bodies are seen. IMPRESSION: 1. No acute osseous injuries or abnormalities are noted. Dictated by Byron Dior MD @ 11/16/2018 8:30:41 PM Dictated by: Byron Dior MD @ 11/16/2018 20:30:46 (Electronically Signed)
--- NOTE | 2018-11-16 20:33 | CR ---
INDICATION: Shoulder pain TECHNIQUE: Shoulder radiograph 2 views right COMPARISON: None FINDINGS: Bone: No acute fractures or aggressive bone lesions are identified. Cephalad migration of the right humeral head is noted, likely due to rotator cuff atrophy and/or tear. Severe diffuse osteopenia is seen. Joint: The glenohumeral is unremarkable. The acromioclavicular joint is unremarkable. Soft tissue: Unremarkable. The visualized hemithorax is unremarkable in appearance. No radiopaque foreign bodies are seen. IMPRESSION: 1. No acute osseous injuries or abnormalities are noted. Dictated by Byron Dior MD @ 11/16/2018 8:31:22 PM Dictated by: Byron Dior MD @ 11/16/2018 20:31:33 (Electronically Signed)
[2018-11-16] MEDS ORDERED: Acetaminophen 325 MG Tab PO PRN (23:40)
[2018-11-16] MEDS ORDERED: oxyCODONE 5 MG Tab PO PRN (23:40)
--- NOTE | 2018-11-17 07:21 | PCM.HP ---
H&P History of Present Illness - General Date of Service: 11/17/18 Admit Problem/Dx: Admission Diagnosis/Problem Admission Diagnosis/Problem Falls Source of Information: Patient, Old Records History Limitations: Reports: Other (Mild dementia) - History of Present Illness Initial Comments - Free Text/Narative: The patient is an 87-year-old gentleman who is been living in assisted living center had presented to the emergency department out of concern for trauma code. However, the patient was worked up and found to be concerning for falls with supratherapeutic INR. The patient is unsure exactly why he is here. Family is not present at this time. 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 The patient also has been complaining of weakness. He has been on medication to help raise his blood pressure however, his blood pressures have been running low. He denies any chest pain. No nausea or vomiting. Onset of Symptoms: Reports: Gradual Duration of Symptoms: Reports: Day(s): Improves with: Reports: None Worsens with: Reports: None Associated Symptoms: Reports: No Other Symptoms - Related Data Allergies/Adverse Reactions: Allergies Allergy/AdvReac Type Severity Reaction Status Date / Time No Known Allergies Allergy Verified 11/16/18 22:01 Home Medications: Home Meds Digoxin 125 mcg PO BEDTIME 05/24/15 [History] Levothyroxine 75 mcg PO ACBREAKFAST 05/24/15 [History] Tamsulosin [Flomax] 1 cap PO BEDTIME 05/24/15 [History] Warfarin [Coumadin] 4 mg PO BEDTIME 05/24/15 [History] Ca Carbonate/Vitamin D3/Vit K [Calcium + D Soft Chewable Tab] 1 each PO DAILY [History] Donepezil [Aricept] 10 mg PO BEDTIME 09/03/15 [History] Lutein/Minerals/Vit A,C & E [Ocuvite] 2 each PO DAILY 09/03/15 [History] Memantine [Namenda] 10 mg PO DAILY 09/03/15 [History] Multivitamin [Multi-Vitamin Daily] 1 each PO DAILY 09/03/15 [History] Acetaminophen/Diphenhydramine [Tylenol Pm Ex-Strength Caplet] 1 tab PO BEDTIME 11/16/18 [History] Alum Hydrox/Mag Hydrox/Simeth [Maalox Advanced] 1 dose PO QID PRN 11/16/18 [ History] Ferrous Sulfate 1 tab PO DAILY 11/16/18 [History] Finasteride 5 mg PO DAILY 11/16/18 [History] Loperamide [Imodium] 2 mg PO ASDIRECTED PRN 11/16/18 [History] Magnesium Hydroxide [Milk of Magnesia] 1 dose PO ASDIRECTED PRN 11/16/18 [ History] Midodrine 10 mg PO DAILY 11/16/18 [History] Non-Formulary Medication [NF Drug] 1 tab PO DAILY 11/16/18 [History] Past Medical History HEENT History: Reports: None Cardiovascular History: Reports: Afib, Heart Valve Replacement, Pacemaker Other Cardiovascular History: low blood pressure Respiratory History: Reports: None Other Gastrointestinal History: tumors in colon Genitourinary History: Reports: None Musculoskeletal History: Reports: Osteoarthritis Neurological History: Reports: Other (See Below) Other Neuro History: Dementia Psychiatric History: Reports: Dementia Endocrine/Metabolic History: Reports: Hypothyroidism Hematologic History: Reports: None Immunologic History: Reports: None Dermatologic History: Reports: None - Infectious Disease History Infectious Disease History: Reports: Chicken Pox - Past Surgical History Cardiovascular Surgical History: Reports: AAA Repair Musculoskeletal Surgical History: Reports: Other (See Below) Other Musculoskeletal Surgeries/Procedures:: Fx Pelvis Social & Family History - Family History Family Medical History: Noncontributory - Caffeine Use Caffeine Use: Reports: None - Recreational Drug Use Recreational Drug Use: No - Living Situation & Occupation Living situation: Reports: , with Significant Other, Assisted Living Occupation: Retired H&P Review of Systems - Review of Systems: Review Of Systems: See Below General: Reports: Weakness HEENT: Reports: Glasses, Hearing Changes Pulmonary: Reports: No Symptoms Cardiovascular: Reports: No Symptoms Gastrointestinal: Reports: No Symptoms Genitourinary: Reports: No Symptoms Musculoskeletal: Reports: No Symptoms Skin: Reports: Bruising Psychiatric: Reports: Confusion Neurological: Reports: No Symptoms Hematologic/Lymphatic: Reports: Easy Bleeding, Easy Bruising Immunologic: Reports: No Symptoms Exam - Exam Exam: See Below - Vital Signs Vital Signs: Last Vital Signs Temp 37.1 C 11/17/18 04:55 Pulse 71 11/17/18 04:55 Resp 18 11/17/18 04:55 BP 93/54 L 11/17/18 04:55 Pulse Ox 98 11/17/18 04:55 Weight: 61.4 kg - Exam Quality Assessment: No: Supplemental Oxygen General: Alert, Oriented, Cooperative HEENT: Conjunctiva Clear, EACs Clear, EOMI, Hearing Intact, Mucosa Moist & [place] , Pupils Equal, Pupils Reactive Neck: Supple, Trachea Midline Lungs: Clear to Auscultation, Normal Respiratory Effort Cardiovascular: Regular Rate, Irregular Rhythm, Systolic Murmur. No: Normal S1 (Soft S1), Normal S2 (Click S2) GI/Abdominal Exam: Normal Bowel Sounds, Soft, Non-Tender, No Distention (Male) Exam: Deferred Rectal (Males) Exam: Deferred Back Exam: Normal Inspection (Appropriate for age), Full Range of Motion Extremities: Normal Inspection, No Pedal Edema Skin: Warm, Dry, Intact, Ecchymosis (Back and arm) Neurological: Cranial Nerves Intact Neuro Extensive - Mental Status: Alert, Oriented x3 Psychiatric: Alert, Normal Affect - Patient Data Lab Results Last 24 hrs: Laboratory Results - last 24 hr 11/16/18 11/16/18 11/16/18 Range/Units 19:15 19:15 19:15 WBC 7.36 (4.0-11.0) K/uL RBC 2.82 L (4.50-5.90) M/uL Hgb 8.2 L (13.0-17.0) g/dL Hct 25.0 L (38.0-50.0) % MCV 88.7 (80.0-98.0) fL MCH 29.1 (27.0-32.0) pg MCHC 32.8 (31.0-37.0) g/dL RDW Std Deviation 52.7 (28.0-62.0) fl RDW Coeff of Jay 17 H (11.0-15.0) % Plt Count 189 (150-400) K/uL MPV 9.20 (7.40-12.00) fL Neut % (Auto) 75.1 (48.0-80.0) % Lymph % (Auto) 15.1 L (16.0-40.0) % [place] % (Auto) 7.6 (0.0-15.0) % Eos % (Auto) 1.9 (0.0-7.0) % Baso % (Auto) 0.3 (0.0-1.5) % Neut # (Auto) 5.5 (1.4-5.7) K/uL Lymph # (Auto) 1.1 (0.6-2.4) K/uL [place] # (Auto) 0.6 (0.0-0.8) K/uL Eos # (Auto) 0.1 (0.0-0.7) K/uL Baso # (Auto) 0.0 (0.0-0.1) K/uL Nucleated RBC % 0.0 /100WBC Nucleated RBCs # 0 K/uL INR 13.52 H* Sodium 134 L (136-148) mmol/L Potassium 4.1 (3.5-5.1) mmol/L Chloride 103 (98-107) mmol/L Carbon Dioxide 21.5 (21.0-32.0) mmol/L BUN 40 H (7.0-18.0) mg/dL Creatinine 1.4 H (0.8-1.3) mg/dL Est Cr Clr Drug Dosing TNP Estimated GFR (MDRD) 48.2 ml/min Glucose 127 H (74-106) mg/dL Calcium 8.5 (8.5-10.1) mg/dL Phosphorus (2.6-4.7) mg/dL Magnesium (1.8-2.4) mg/dL Total Bilirubin 0.8 (0.2-1.0) mg/dL AST 28 (15-37) IU/L ALT 21 (14-63) IU/L Alkaline Phosphatase 77 (46-116) U/L Troponin I < 0.050 (0.000-0.056) ng/mL Total Protein 6.5 (6.4-8.2) g/dL Albumin 3.2 L (3.4-5.0) g/dL Globulin 3.3 (2.6-4.0) g/dL Albumin/Globulin Ratio 1.0 (0.9-1.6) TSH 3rd Generation 5.78 H (0.36-3.74) uIU/mL Urine Color Urine Appearance Urine pH (5.0-8.0) Ur Specific [place] (1.001-1.035) Urine Protein (NEGATIVE) mg/dL Urine Glucose (UA) (NEGATIVE) mg/dL Urine Ketones (NEGATIVE) mg/dL Urine Occult Blood (NEGATIVE) Urine Nitrite (NEGATIVE) Urine Bilirubin (NEGATIVE) Urine Urobilinogen (<2.0) EU/dL Ur Leukocyte Esterase (NEGATIVE) Urine RBC (0-2/HPF) Urine WBC (0-5/HPF) Ur Epithelial Cells (NONE-FEW) Urine Bacteria (NEGATIVE) Digoxin 0.7 L (0.9-2.0) ng/mL 11/16/18 11/16/18 11/17/18 Range/Units 19:15 21:45 06:35 WBC 5.63 (4.0-11.0) K/uL RBC 2.45 L (4.50-5.90) M/uL Hgb 7.1 L (13.0-17.0) g/dL Hct 21.5 L (38.0-50.0) % MCV 87.8 (80.0-98.0) fL MCH 29.0 (27.0-32.0) pg MCHC 33.0 (31.0-37.0) g/dL RDW Std Deviation 52.7 (28.0-62.0) fl RDW Coeff of Jay 17 H (11.0-15.0) % Plt Count 164 (150-400) K/uL MPV 8.90 (7.40-12.00) fL Neut % (Auto) 72.4 (48.0-80.0) % Lymph % (Auto) 14.6 L (16.0-40.0) % [place] % (Auto) 9.6 (0.0-15.0) % Eos % (Auto) 3.2 (0.0-7.0) % Baso % (Auto) 0.2 (0.0-1.5) % Neut # (Auto) 4.1 (1.4-5.7) K/uL Lymph # (Auto) 0.8 (0.6-2.4) K/uL [place] # (Auto) 0.5 (0.0-0.8) K/uL Eos # (Auto) 0.2 (0.0-0.7) K/uL Baso # (Auto) 0.0 (0.0-0.1) K/uL Nucleated RBC % 0.0 /100WBC Nucleated RBCs # 0 K/uL INR Sodium (136-148) mmol/L Potassium (3.5-5.1) mmol/L Chloride (98-107) mmol/L Carbon Dioxide (21.0-32.0) mmol/L BUN (7.0-18.0) mg/dL Creatinine (0.8-1.3) mg/dL Est Cr Clr Drug Dosing Estimated GFR (MDRD) ml/min Glucose (74-106) mg/dL Calcium (8.5-10.1) mg/dL Phosphorus 3.1 (2.6-4.7) mg/dL Magnesium 2.3 (1.8-2.4) mg/dL Total Bilirubin (0.2-1.0) mg/dL AST (15-37) IU/L ALT (14-63) IU/L Alkaline Phosphatase (46-116) U/L Troponin I (0.000-0.056) ng/mL Total Protein (6.4-8.2) g/dL Albumin (3.4-5.0) g/dL Globulin (2.6-4.0) g/dL Albumin/Globulin Ratio (0.9-1.6) TSH 3rd Generation (0.36-3.74) uIU/mL Urine Color YELLOW Urine Appearance CLEAR Urine pH 6.0 (5.0-8.0) Ur Specific [place] 1.010 (1.001-1.035) Urine Protein NEGATIVE (NEGATIVE) mg/dL Urine Glucose (UA) NEGATIVE (NEGATIVE) mg/dL Urine Ketones NEGATIVE (NEGATIVE) mg/dL Urine Occult Blood NEGATIVE (NEGATIVE) Urine Nitrite NEGATIVE (NEGATIVE) Urine Bilirubin NEGATIVE (NEGATIVE) Urine Urobilinogen 0.2 (<2.0) EU/dL Ur Leukocyte Esterase TRACE H (NEGATIVE) Urine RBC 0-1 (0-2/HPF) Urine WBC 2-3 (0-5/HPF) Ur Epithelial Cells RARE (NONE-FEW) Urine Bacteria RARE (NEGATIVE) Digoxin (0.9-2.0) ng/mL 11/17/18 11/17/18 Range/Units 06:35 06:35 WBC (4.0-11.0) K/uL RBC (4.50-5.90) M/uL Hgb (13.0-17.0) g/dL Hct (38.0-50.0) % MCV (80.0-98.0) fL MCH (27.0-32.0) pg MCHC (31.0-37.0) g/dL RDW Std Deviation (28.0-62.0) fl RDW Coeff of Jay (11.0-15.0) % Plt Count (150-400) K/uL MPV (7.40-12.00) fL Neut % (Auto) (48.0-80.0) % Lymph % (Auto) (16.0-40.0) % [place] % (Auto) (0.0-15.0) % Eos % (Auto) (0.0-7.0) % Baso % (Auto) (0.0-1.5) % Neut # (Auto) (1.4-5.7) K/uL Lymph # (Auto) (0.6-2.4) K/uL [place] # (Auto) (0.0-0.8) K/uL Eos # (Auto) (0.0-0.7) K/uL Baso # (Auto) (0.0-0.1) K/uL Nucleated RBC % /100WBC Nucleated RBCs # K/uL INR 9.00 H* Sodium 139 (136-148) mmol/L Potassium 4.6 (3.5-5.1) mmol/L Chloride 110 H (98-107) mmol/L Carbon Dioxide 21.7 (21.0-32.0) mmol/L BUN 30 H (7.0-18.0) mg/dL Creatinine 1.2 (0.8-1.3) mg/dL Est Cr Clr Drug Dosing 39.09 Estimated GFR (MDRD) 57.5 ml/min Glucose 96 (74-106) mg/dL Calcium 8.4 L (8.5-10.1) mg/dL Phosphorus (2.6-4.7) mg/dL Magnesium (1.8-2.4) mg/dL Total Bilirubin 0.9 (0.2-1.0) mg/dL AST 27 (15-37) IU/L ALT 16 (14-63) IU/L Alkaline Phosphatase 67 (46-116) U/L Troponin I (0.000-0.056) ng/mL Total Protein 5.5 L (6.4-8.2) g/dL Albumin 2.7 L (3.4-5.0) g/dL Globulin 2.8 (2.6-4.0) g/dL Albumin/Globulin Ratio 1.0 (0.9-1.6) TSH 3rd Generation (0.36-3.74) uIU/mL Urine Color Urine Appearance Urine pH (5.0-8.0) Ur Specific [place] (1.001-1.035) Urine Protein (NEGATIVE) mg/dL Urine Glucose (UA) (NEGATIVE) mg/dL Urine Ketones (NEGATIVE) mg/dL Urine Occult Blood (NEGATIVE) Urine Nitrite (NEGATIVE) Urine Bilirubin (NEGATIVE) Urine Urobilinogen (<2.0) EU/dL Ur Leukocyte Esterase (NEGATIVE) Urine RBC (0-2/HPF) Urine WBC (0-5/HPF) Ur Epithelial Cells (NONE-FEW) Urine Bacteria (NEGATIVE) Digoxin (0.9-2.0) ng/mL Result Diagrams: 11/17/18 06:35 11/17/18 06:35 *Q Meaningful Use (ADM) - VTE *Q VTE Mechanical Contraindications *Q: At Risk for Falls VTE Pharmacological Contraindications *Q: Risk of Bleeding - Problem List (1) Coumadin toxicity SNOMED Code(s): 99202301 ICD Code: T45.511A - POISONING BY ANTICOAGULANTS, ACCIDENTAL, INIT Status: Acute Priority: High Current Visit: Yes Qualifiers: Encounter type: initial encounter Injury intent: accidental or unintentional Qualified Code(s): T45.511A - Poisoning by anticoagulants, accidental (unintentional), initial encounter (2) Chronic a-fib SNOMED Code(s): 000104958 ICD Code: I48.2 - CHRONIC ATRIAL FIBRILLATION Status: Chronic Priority: High Current Visit: Yes (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 SNOMED Code(s): 427737089 ICD Code: Z95.3 - PRESENCE OF XENOGENIC HEART VALVE Status: Chronic Priority: High Current Visit: Yes (4) Mild dementia SNOMED Code(s): 60328538 ICD Code: F03.90 - UNSPECIFIED DEMENTIA WITHOUT BEHAVIORAL DISTURBANCE Status: Chronic Priority: High Current Visit: Yes (5) Left elbow contusion SNOMED Code(s): 97456145 ICD Code: S50.02XA - CONTUSION OF LEFT ELBOW, INITIAL ENCOUNTER Status: Acute Priority: High Current Visit: Yes Qualifiers: Encounter type: initial encounter Qualified Code(s): S50.02XA - Contusion of left elbow, initial encounter (6) Dehydration SNOMED Code(s): 01514254 ICD Code: E86.0 - DEHYDRATION Status: Acute Priority: High Current Visit: Yes Problem List Initiated/Reviewed/Updated: Yes Orders Last 24hrs: Active Orders 24 hr Category Date Time Status Patient Status [ADT] Stat ADT 11/16/18 19:47 Active Cardiac Monitoring [RC] Q8H Care 11/16/18 19:11 Active Oxygen Therapy, ED [RC] ASDIRECTED Care 11/16/18 19:11 Active Pulse Oximetry [RC] ASDIRECTED Care 11/16/18 19:11 Active Heart Healthy Diet [DIET] Diet 11/17/18 Breakfast Active CULTURE URINE [RM] Stat Lab 11/16/18 21:45 Received Acetaminophen [Tylenol] Med 11/16/18 23:40 Active 650 mg PO Q4H PRN Sodium Chloride 0.9% [Saline Flush] Med 11/16/18 19:13 Active 10 ml FLUSH ASDIRECTED PRN Sodium Chloride 0.9% [Saline Flush] Med 11/16/18 19:13 Active 2.5 ml FLUSH ASDIRECTED PRN oxyCODONE Med 11/16/18 23:40 Active 5 mg PO Q4H PRN Saline Lock Insert [OM.PC] Stat Oth 11/16/18 19:11 Ordered Medication Orders Acetaminophen (Tylenol) 650 mg PO Q4H PRN PRN Reason: Pain (mild 1-3) Oxycodone HCl (Oxycodone) 5 mg PO Q4H PRN PRN Reason: Pain (severe 7-10) Sodium Chloride (Saline Flush) 10 ml FLUSH ASDIRECTED PRN PRN Reason: Keep Vein Open Sodium Chloride (Saline Flush) 2.5 ml FLUSH ASDIRECTED PRN PRN Reason: Keep Vein Open Assessment/Plan Comment:: The patient is an 87-year-old gentleman who had been admitted secondary to multiple falls with contusions. He was noted to be initially Coumadin toxic in the emergency room with an INR greater than 13. Currently his INR is 9.0. We'll continue to hold the patient's Coumadin until his INR is down to at least 4.0. Physical therapy has been ordered. Interestingly, patient's family is here and his daughter reports that he has always had relatively low blood pressure. Further the patient says that he has had dizziness when he stands up and often will fall. I've ordered orthostatic blood pressures to be taken. I believe the patient would benefit from increased blood pressure and he is currently on midrodrine. The patient should benefit from having a blood pressure goal of between 130-150 mmHg systolic. The patient will also be kept on a regular heart healthy diet as tolerated. PT OT has also been ordered for the patient to help with his strengthening, ambulation and achieving his ADLs. The patient will be monitored to repeat laboratory testing and he should be appropriate for discharge perhaps in 1-2 days.
[2018-11-17] MEDS ORDERED: Docusate Sodium 100 MG Cap PO PRN (09:26)
[2018-11-17] MEDS ORDERED: Aluminum Hydroxide/Magnesium Hydroxide/Simethicone Susp 30 ML Cup PO PRN (09:28)
[2018-11-17] MEDS: Midodrine 5 MG Tab PO SCH (09:53)
[2018-11-17] MEDS: Finasteride 5 MG Tab PO SCH (09:53)
[2018-11-17] MEDS: Memantine 10 MG Tab PO SCH (09:53)
[2018-11-17] MEDS ORDERED: Acetaminophen 325 MG Tab PO ONE (19:00)
[2018-11-17] MEDS ORDERED: diphenhydrAMINE 50 MG/ML SDV IVPUSH ONE (19:00)
[2018-11-17] MEDS: Tamsulosin 0.4 MG Cap.ER PO SCH (20:09)
[2018-11-17] MEDS: diphenhydrAMINE 25 MG Cap PO SCH (20:09)
[2018-11-17] MEDS: Donepezil 10 MG Tab PO SCH (20:10)
[2018-11-17] MEDS: Digoxin 250 MCG Tab PO SCH (20:11)
[2018-11-17] MEDS ORDERED: Furosemide 40 MG/4 ML VIAL IVPUSH ONE (21:30)
[2018-11-18] MEDS: Levothyroxine 75 MCG Tab PO SCH (06:44)
--- NOTE | 2018-11-18 08:52 | PCM.PN ---
- General Info Date of Service: 11/18/18 Admission Dx/Problem (Free Text): Admission Diagnosis/Problem Admission Diagnosis/Problem Falls Subjective Update: The patient's an 87-year-old gentleman who was admitted on 2018 out of concern for multiple falls. He was noted the patient had a supratherapeutic INR. His INR upon admission was 13. Today the patient is more awake and alert. The patient has denied any pain. The patient had a hemoglobin yesterday of 7.1 g/dL and he had received 2 units of packed red blood cells. The patient also has been tolerating his diet. Functional Status: Reports: Pain Controlled, Tolerating Diet - Review of Systems General: Reports: Weakness HEENT: Reports: No Symptoms Pulmonary: Reports: No Symptoms Cardiovascular: Reports: No Symptoms Gastrointestinal: Reports: No Symptoms Genitourinary: Reports: No Symptoms Musculoskeletal: Reports: No Symptoms Skin: Reports: No Symptoms Neurological: Reports: No Symptoms Psychiatric: Reports: No Symptoms - Patient Data Vitals - Most Recent: Last Vital Signs Temp 36.6 C 11/18/18 03:43 Pulse 70 11/18/18 03:43 Resp 18 11/18/18 03:43 BP 88/61 L 11/18/18 03:43 Pulse Ox 94 L 11/18/18 03:43 Orthostatic Blood Pressure [ 98/73 Supine] Orthostatic Blood Pressure [ 102/84 Standing] Orthostatic Blood Pressure [ 102/75 Sitting] Weight - Most Recent: 61.4 kg I&O - Last 24 Hours: Intake & Output 11/17/18 11/18/18 11/18/18 22:59 06:59 14:59 Intake Total 1214 822 Output Total 200 1950 Balance 1014 -1128 Lab Results Last 24 Hours: Laboratory Results - last 24 hr 11/17/18 11/18/18 11/18/18 Range/Units 17:28 05:53 05:53 WBC 5.36 (4.0-11.0) K/uL RBC 3.49 L (4.50-5.90) M/uL Hgb 10.0 L (13.0-17.0) g/dL Hct 30.4 L (38.0-50.0) % MCV 87.1 (80.0-98.0) fL MCH 28.7 (27.0-32.0) pg MCHC 32.9 (31.0-37.0) g/dL RDW Std Deviation 52.6 (28.0-62.0) fl RDW Coeff of Jay 17 H (11.0-15.0) % Plt Count 185 (150-400) K/uL MPV 9.00 (7.40-12.00) fL Neut % (Auto) 67.7 (48.0-80.0) % Lymph % (Auto) 16.0 (16.0-40.0) % [place] % (Auto) 11.2 (0.0-15.0) % Eos % (Auto) 4.5 (0.0-7.0) % Baso % (Auto) 0.6 (0.0-1.5) % Neut # (Auto) 3.6 (1.4-5.7) K/uL Lymph # (Auto) 0.9 (0.6-2.4) K/uL [place] # (Auto) 0.6 (0.0-0.8) K/uL Eos # (Auto) 0.2 (0.0-0.7) K/uL Baso # (Auto) 0.0 (0.0-0.1) K/uL Nucleated RBC % 0.0 /100WBC Nucleated RBCs # 0 K/uL INR 5.45 Sodium (136-148) mmol/L Potassium (3.5-5.1) mmol/L Chloride (98-107) mmol/L Carbon Dioxide (21.0-32.0) mmol/L BUN (7.0-18.0) mg/dL Creatinine (0.8-1.3) mg/dL Est Cr Clr Drug Dosing mL/min Estimated GFR (MDRD) ml/min Glucose (74-106) mg/dL Calcium (8.5-10.1) mg/dL Blood Type O NEGATIVE Antibody Screen NEGATIVE Crossmatch See Detail 11/18/18 Range/Units 05:53 WBC (4.0-11.0) K/uL RBC (4.50-5.90) M/uL Hgb (13.0-17.0) g/dL Hct (38.0-50.0) % MCV (80.0-98.0) fL MCH (27.0-32.0) pg MCHC (31.0-37.0) g/dL RDW Std Deviation (28.0-62.0) fl RDW Coeff of Jay (11.0-15.0) % Plt Count (150-400) K/uL MPV (7.40-12.00) fL Neut % (Auto) (48.0-80.0) % Lymph % (Auto) (16.0-40.0) % [place] % (Auto) (0.0-15.0) % Eos % (Auto) (0.0-7.0) % Baso % (Auto) (0.0-1.5) % Neut # (Auto) (1.4-5.7) K/uL Lymph # (Auto) (0.6-2.4) K/uL [place] # (Auto) (0.0-0.8) K/uL Eos # (Auto) (0.0-0.7) K/uL Baso # (Auto) (0.0-0.1) K/uL Nucleated RBC % /100WBC Nucleated RBCs # K/uL INR Sodium 140 (136-148) mmol/L Potassium 4.7 (3.5-5.1) mmol/L Chloride 108 H (98-107) mmol/L Carbon Dioxide 25.4 (21.0-32.0) mmol/L BUN 26 H (7.0-18.0) mg/dL Creatinine 1.3 (0.8-1.3) mg/dL Est Cr Clr Drug Dosing 36.08 mL/min Estimated GFR (MDRD) 52.5 ml/min Glucose 93 (74-106) mg/dL Calcium 8.8 (8.5-10.1) mg/dL Blood Type Antibody Screen Crossmatch Zack Results Last 24 Hours: Microbiology 11/16/18 21:45 Urine Culture - Final Urine, Voided MIXED [place] >100,000 CFU/ML Med Orders - Current: Current Medications Acetaminophen (Tylenol) 650 mg PO Q4H PRN PRN Reason: Pain (mild 1-3) Al Hydroxide/Mg Hydroxide (Mag-Al Plus) 30 ml PO QID PRN PRN Reason: Heartburn Digoxin (Lanoxin) 125 mcg PO BEDTIME [facility] Last Admin: 11/17/18 20:11 Dose: 125 mcg Diphenhydramine HCl (Benadryl) 25 mg PO BEDTIME [facility] Last Admin: 11/17/18 20:09 Dose: 25 mg Docusate Sodium (Colace) 100 mg PO BID PRN PRN Reason: Constipation Donepezil HCl (Aricept) 10 mg PO BEDTIME [facility] Last Admin: 11/17/18 20:10 Dose: 10 mg Ferrous Sulfate (Ferrous Sulfate) 325 mg PO DAILY [facility] Finasteride (Proscar) 5 mg PO DAILY [facility] Last Admin: 11/17/18 09:53 Dose: 5 mg Levothyroxine Sodium (Levothyroxine) 75 mcg PO ACBREAKFAST [facility] Last Admin: 11/18/18 06:44 Dose: 75 mcg Memantine (Namenda) 10 mg PO DAILY [facility] Last Admin: 11/17/18 09:53 Dose: 10 mg Midodrine (Midodrine) 10 mg PO DAILY [facility] Last Admin: 11/17/18 09:53 Dose: 10 mg Oxycodone HCl (Oxycodone) 5 mg PO Q4H PRN PRN Reason: Pain (severe 7-10) Sodium Chloride (Saline Flush) 10 ml FLUSH ASDIRECTED PRN PRN Reason: Keep Vein Open Sodium Chloride (Saline Flush) 2.5 ml FLUSH ASDIRECTED PRN PRN Reason: Keep Vein Open Tamsulosin HCl (Flomax) 0.4 mg PO BEDTIME [facility] Last Admin: 11/17/18 20:09 Dose: 0.4 mg Discontinued Medications Acetaminophen (Tylenol) 650 mg PO NOW ONE Stop: 11/17/18 19:01 Last Admin: 11/17/18 18:59 Dose: 650 mg Diphenhydramine HCl (Benadryl) 50 mg IVPUSH ONETIME ONE Stop: 11/17/18 19:01 Last Admin: 11/17/18 19:00 Dose: 50 mg Furosemide (Lasix) 20 mg IVPUSH NOW ONE Stop: 11/17/18 21:31 Last Admin: 11/17/18 21:43 Dose: 20 mg Sodium Chloride (Normal Saline) 1,000 mls @ 70 mls/hr IV ASDIRECTED [facility] Stop: 11/16/18 21:00 Last Infusion: 11/16/18 20:30 Dose: Infused - Exam Quality Assessment: No: Supplemental Oxygen General: Alert, Oriented, No Acute Distress HEENT: Pupils Equal, Pupils Reactive, EOMI Neck: Supple, Trachea Midline, No JVD Lungs: Clear to Auscultation, Normal Respiratory Effort Cardiovascular: Regular Rate, Regular Rhythm, No Murmurs GI/Abdominal Exam: Normal Bowel Sounds, Soft, Non-Tender, No Distention (Male) Exam: Deferred Back Exam: Normal Inspection (Age-related changes), Full Range of Motion Extremities: Normal Inspection, No Pedal Edema Skin: Warm, Dry, Intact, Ecchymosis Neurological: No New Focal Deficit Psy/Mental Status: Alert, Normal Affect, Normal Mood - Problem List & Annotations (1) Coumadin toxicity SNOMED Code(s): 93237572 Code(s): T45.511A - POISONING BY ANTICOAGULANTS, ACCIDENTAL, INIT Status: Acute Priority: High Current Visit: Yes Qualifiers: Encounter type: subsequent encounter Injury intent: accidental or unintentional Qualified Code(s): T45.511D - Poisoning by anticoagulants, accidental (unintentional), subsequent encounter Annotation/Comment:: Improved (2) Chronic a-fib SNOMED Code(s): 591638968 Code(s): I48.2 - CHRONIC ATRIAL FIBRILLATION Status: Chronic Priority: High Current Visit: Yes (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 SNOMED Code(s): 853787896 Code(s): Z95.3 - PRESENCE OF XENOGENIC HEART VALVE Status: Chronic Priority: High Current Visit: Yes (4) Mild dementia SNOMED Code(s): 03412750 Code(s): F03.90 - UNSPECIFIED DEMENTIA WITHOUT BEHAVIORAL DISTURBANCE Status: Chronic Priority: High Current Visit: Yes (5) Left elbow contusion SNOMED Code(s): 66766336 Code(s): S50.02XA - CONTUSION OF LEFT ELBOW, INITIAL ENCOUNTER Status: Acute Priority: High Current Visit: Yes Qualifiers: Encounter type: subsequent encounter Qualified Code(s): S50.02XD - Contusion of left elbow, subsequent encounter (6) Dehydration SNOMED Code(s): 48187100 Code(s): E86.0 - DEHYDRATION Status: Resolved Priority: High Current Visit: Yes - Problem List Review Problem List Initiated/Reviewed/Updated: Yes - My Orders Last 24 Hours: My Active Orders 11/17/18 09:26 Oxygen Therapy [RC] PRN Up With Assistance [RC] ASDIRECTED Vital Signs [RC] Q4H OT Evaluation and Treatment [CONS] Routine PT Evaluation and Treatment [CONS] Routine Docusate Sodium [Colace] 100 mg PO BID PRN VTE Mechanical Contraindications [AST] Per Unit Routine VTE Pharmacological Contraindications [AST] Per Unit Routine Resuscitation Status Routine 11/17/18 09:28 Alum Hydrox/Mag Hydrox/Simeth [Mag-Al Plus] 30 ml PO QID PRN 11/17/18 09:30 Finasteride [Proscar] 5 mg PO DAILY Memantine [Namenda] 10 mg PO DAILY Midodrine 10 mg PO DAILY 11/17/18 09:46 Orthostatic Vital Signs [RC] Q4H 11/17/18 17:14 Transfuse Red Blood Cells [COMM] Routine 11/17/18 21:00 Digoxin [Lanoxin] 125 mcg PO BEDTIME Donepezil [Aricept] 10 mg PO BEDTIME Tamsulosin [Flomax] 0.4 mg PO BEDTIME diphenhydrAMINE [Benadryl] 25 mg PO BEDTIME 11/18/18 07:30 Levothyroxine 75 mcg PO ACBREAKFAST 11/18/18 09:00 Ferrous Sulfate 325 mg PO DAILY - Plan Plan:: The patient is an 87-year-old gentleman who was admitted on November 17, 2018 out of concern for dizziness and falls. Patient also was found to have a supratherapeutic INR. Overall, the patient has improved. The patient yesterday was started on midodrine to help keep his blood pressure above 100 mmHg systolic as patient has had episodes of hypotension with orthostatic blood pressure checks. The patient today says that he is doing much better. He still has some dizziness with standing up. The patient also because his hemoglobin had fallen to 7.1 g/dL was transfused with 2 units of packed red blood cells. The patient says that he is breathing better. The patient will also have his INR checked and the patient will have his Coumadin restarted once his INR reaches 4. Repeat laboratory studies of also been ordered. The patient should be appropriate for discharge in 1-2 days. Physical therapy should evaluate the patient as well.
[2018-11-18] MEDS: Memantine 10 MG Tab PO SCH (09:31)
[2018-11-18] MEDS: Midodrine 5 MG Tab PO SCH ×2 (09:31→17:46)
[2018-11-18] MEDS: Ferrous Sulfate 325 MG Tab PO SCH (09:32)
[2018-11-18] MEDS: Finasteride 5 MG Tab PO SCH (09:32)
[2018-11-18] MEDS: Donepezil 10 MG Tab PO SCH (20:29)
[2018-11-18] MEDS: Digoxin 250 MCG Tab PO SCH (20:30)
[2018-11-18] MEDS: Tamsulosin 0.4 MG Cap.ER PO SCH (20:30)
[2018-11-18] MEDS: diphenhydrAMINE 25 MG Cap PO SCH (20:30)
[2018-11-19] MEDS: Midodrine 5 MG Tab PO SCH ×3 (06:33→11:59)
[2018-11-19] MEDS: Levothyroxine 75 MCG Tab PO SCH (06:33)
--- NOTE | 2018-11-19 08:38 | PCM.PN ---
- General Info Date of Service: 11/19/18 Admission Dx/Problem (Free Text): Admission Diagnosis/Problem Admission Diagnosis/Problem Falls - Patient Data Vitals - Most Recent: Last Vital Signs Temp 97.5 F 11/19/18 07:42 Pulse 70 11/19/18 07:42 Resp 16 11/19/18 07:42 BP 88/58 L 11/19/18 07:42 Pulse Ox 95 11/19/18 07:42 Orthostatic Blood Pressure [ 84/57 Supine] Orthostatic Blood Pressure [ 68/29 Standing] Orthostatic Blood Pressure [ 70/38 Sitting] Weight - Most Recent: 61.4 kg I&O - Last 24 Hours: Intake & Output 11/18/18 11/19/18 11/19/18 22:59 06:59 14:59 Intake Total 1440 700 Output Total 600 1100 Balance 840 -400 Lab Results Last 24 Hours: Laboratory Results - last 24 hr 11/18/18 11/19/18 11/19/18 Range/Units 05:52 05:30 05:30 WBC 5.64 (4.0-11.0) K/uL RBC 3.36 L (4.50-5.90) M/uL Hgb 9.6 L (13.0-17.0) g/dL Hct 29.3 L (38.0-50.0) % MCV 87.2 (80.0-98.0) fL MCH 28.6 (27.0-32.0) pg MCHC 32.8 (31.0-37.0) g/dL RDW Std Deviation 55.0 (28.0-62.0) fl RDW Coeff of Jay 18 H (11.0-15.0) % Plt Count 177 (150-400) K/uL MPV 9.20 (7.40-12.00) fL Neut % (Auto) 69.7 (48.0-80.0) % Lymph % (Auto) 14.4 L (16.0-40.0) % [place] % (Auto) 11.3 (0.0-15.0) % Eos % (Auto) 4.1 (0.0-7.0) % Baso % (Auto) 0.5 (0.0-1.5) % Neut # (Auto) 3.9 (1.4-5.7) K/uL Lymph # (Auto) 0.8 (0.6-2.4) K/uL [place] # (Auto) 0.6 (0.0-0.8) K/uL Eos # (Auto) 0.2 (0.0-0.7) K/uL Baso # (Auto) 0.0 (0.0-0.1) K/uL Nucleated RBC % 0.0 /100WBC Nucleated RBCs # 0 K/uL INR Sodium 136 (136-148) mmol/L Potassium 4.4 (3.5-5.1) mmol/L Chloride 105 (98-107) mmol/L Carbon Dioxide 23.7 (21.0-32.0) mmol/L BUN 24 H (7.0-18.0) mg/dL Creatinine 1.2 (0.8-1.3) mg/dL Est Cr Clr Drug Dosing 39.09 mL/min Estimated GFR (MDRD) 57.5 ml/min Glucose 93 (74-106) mg/dL Calcium 8.6 (8.5-10.1) mg/dL Digoxin 1.3 (0.9-2.0) ng/mL 11/19/18 Range/Units 07:54 WBC (4.0-11.0) K/uL RBC (4.50-5.90) M/uL Hgb (13.0-17.0) g/dL Hct (38.0-50.0) % MCV (80.0-98.0) fL MCH (27.0-32.0) pg MCHC (31.0-37.0) g/dL RDW Std Deviation (28.0-62.0) fl RDW Coeff of Jay (11.0-15.0) % Plt Count (150-400) K/uL MPV (7.40-12.00) fL Neut % (Auto) (48.0-80.0) % Lymph % (Auto) (16.0-40.0) % [place] % (Auto) (0.0-15.0) % Eos % (Auto) (0.0-7.0) % Baso % (Auto) (0.0-1.5) % Neut # (Auto) (1.4-5.7) K/uL Lymph # (Auto) (0.6-2.4) K/uL [place] # (Auto) (0.0-0.8) K/uL Eos # (Auto) (0.0-0.7) K/uL Baso # (Auto) (0.0-0.1) K/uL Nucleated RBC % /100WBC Nucleated RBCs # K/uL INR 3.18 Sodium (136-148) mmol/L Potassium (3.5-5.1) mmol/L Chloride (98-107) mmol/L Carbon Dioxide (21.0-32.0) mmol/L BUN (7.0-18.0) mg/dL Creatinine (0.8-1.3) mg/dL Est Cr Clr Drug Dosing mL/min Estimated GFR (MDRD) ml/min Glucose (74-106) mg/dL Calcium (8.5-10.1) mg/dL Digoxin (0.9-2.0) ng/mL Zack Results Last 24 Hours: Microbiology 11/16/18 21:45 Urine Culture - Final Urine, Voided MIXED [place] >100,000 CFU/ML Med Orders - Current: Current Medications Acetaminophen (Tylenol) 650 mg PO Q4H PRN PRN Reason: Pain (mild 1-3) Al Hydroxide/Mg Hydroxide (Mag-Al Plus) 30 ml PO QID PRN PRN Reason: Heartburn Digoxin (Lanoxin) 125 mcg PO BEDTIME [facility] Last Admin: 11/18/18 20:30 Dose: 125 mcg Diphenhydramine HCl (Benadryl) 25 mg PO BEDTIME [facility] Last Admin: 11/18/18 20:30 Dose: 25 mg Docusate Sodium (Colace) 100 mg PO BID PRN PRN Reason: Constipation Donepezil HCl (Aricept) 10 mg PO BEDTIME [facility] Last Admin: 11/18/18 20:29 Dose: 10 mg Ferrous Sulfate (Ferrous Sulfate) 325 mg PO DAILY [facility] Last Admin: 11/18/18 09:32 Dose: 325 mg Finasteride (Proscar) 5 mg PO DAILY [facility] Last Admin: 11/18/18 09:32 Dose: 5 mg Levothyroxine Sodium (Levothyroxine) 75 mcg PO ACBREAKFAST [facility] Last Admin: 11/19/18 06:33 Dose: 75 mcg Memantine (Namenda) 10 mg PO DAILY [facility] Last Admin: 11/18/18 09:31 Dose: 10 mg Midodrine (Midodrine) 5 mg PO TIDAC [facility] Last Admin: 11/19/18 06:33 Dose: 5 mg Oxycodone HCl (Oxycodone) 5 mg PO Q4H PRN PRN Reason: Pain (severe 7-10) Sodium Chloride (Saline Flush) 10 ml FLUSH ASDIRECTED PRN PRN Reason: Keep Vein Open Sodium Chloride (Saline Flush) 2.5 ml FLUSH ASDIRECTED PRN PRN Reason: Keep Vein Open Tamsulosin HCl (Flomax) 0.4 mg PO BEDTIME [facility] Last Admin: 11/18/18 20:30 Dose: 0.4 mg Discontinued Medications Acetaminophen (Tylenol) 650 mg PO NOW ONE Stop: 11/17/18 19:01 Last Admin: 11/17/18 18:59 Dose: 650 mg Diphenhydramine HCl (Benadryl) 50 mg IVPUSH ONETIME ONE Stop: 11/17/18 19:01 Last Admin: 11/17/18 19:00 Dose: 50 mg Furosemide (Lasix) 20 mg IVPUSH NOW ONE Stop: 11/17/18 21:31 Last Admin: 11/17/18 21:43 Dose: 20 mg Sodium Chloride (Normal Saline) 1,000 mls @ 70 mls/hr IV ASDIRECTED [facility] Stop: 11/16/18 21:00 Last Infusion: 11/16/18 20:30 Dose: Infused Midodrine (Midodrine) 10 mg PO DAILY [facility] Last Admin: 11/18/18 09:31 Dose: 10 mg - Plan Plan:: The patient is an 87-year-old gentleman who was admitted on November 17, 2018 out of concern for dizziness and falls. Patient also was found to have a supratherapeutic INR. Overall, the patient has improved. The patient yesterday was started on midodrine to help keep his blood pressure above 100 mmHg systolic as patient has had episodes of hypotension with orthostatic blood pressure checks. The patient today says that he is doing much better. He still has some dizziness with standing up. The patient also because his hemoglobin had fallen to 7.1 g/dL was transfused with 2 units of packed red blood cells. The patient says that he is breathing better. The patient will also have his INR checked and the patient will have his Coumadin restarted once his INR reaches 4. Repeat laboratory studies of also been ordered. The patient should be appropriate for discharge in 1-2 days. Physical therapy should evaluate the patient as well.
[2018-11-19] MEDS: Memantine 10 MG Tab PO SCH (09:03)
[2018-11-19] MEDS: Finasteride 5 MG Tab PO SCH (09:03)
[2018-11-19] MEDS: Ferrous Sulfate 325 MG Tab PO SCH (09:03)
[2018-11-19] MEDS ORDERED: Midodrine 5 MG Tab PO SCH (12:00)
[2018-11-19 12:18] VITALS: BP 98/66
[2018-11-19] MEDS ORDERED: Warfarin 2 MG Tab PO ONE (12:21)
--- NOTE | 2018-11-19 14:20 | PCM.DCSUM1 ---
Discharge Summary - Hospital Course Brief History: The patient is an 87-year-old gentleman who is been living in assisted living center had presented to the emergency department out of concern for trauma code, but was felt needed medical management more for falls with supratherapeutic INR. The patient is unsure exactly why he is here. Family is not present at this time. 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 The patient also has been complaining of weakness. He has been on medication to help raise his blood pressure however, his blood pressures have been running low. He denies any chest pain. No nausea or vomiting. Diagnosis: Stroke: No - Discharge Data Discharge Date: 11/19/18 Discharge Disposition: Home, Self-Care 01 Condition: Good - Patient Summary/Data Consults: Consultations 11/17/18 09:26 OT Evaluation and Treatment [CONS] Routine PT Evaluation and Treatment [CONS] Routine - Patient Instructions Diet: Heart Healthy Diet Activity: As Tolerated Showering/Bathing: May Shower Notify Provider of: Fever, Increased Pain, Swelling and Redness, Drainage, Nausea and/or Vomiting Other/Special Instructions: PT/OT to evaluate and treat - Discharge Plan *PRESCRIPTION DRUG MONITORING PROGRAM REVIEWED*: Not Applicable *COPY OF PRESCRIPTION DRUG MONITORING REPORT IN PATIENT [facility]: Not Applicable Home Medications: Home Meds Digoxin 125 mcg PO BEDTIME 05/24/15 [History] Levothyroxine 75 mcg PO ACBREAKFAST 05/24/15 [History] Warfarin [Coumadin] 4 mg PO DAILY 05/24/15 [History] Ca Carbonate/Vitamin D3/Vit K [Calcium + D Soft Chewable Tab] 1 each PO DAILY [History] Donepezil [Aricept] 10 mg PO BEDTIME 09/03/15 [History] Lutein/Minerals/Vit A,C & E [Ocuvite] 2 each PO DAILY 09/03/15 [History] Memantine [Namenda] 10 mg PO DAILY 09/03/15 [History] Multivitamin [Multi-Vitamin Daily] 1 each PO DAILY 09/03/15 [History] Acetaminophen/Diphenhydramine [Tylenol Pm Ex-Strength Caplet] 1 tab PO BEDTIME 11/16/18 [History] Alum Hydrox/Mag Hydrox/Simeth [Maalox Advanced] 1 dose PO QID PRN 11/16/18 [ History] Ferrous Sulfate 1 tab PO DAILY 11/16/18 [History] Loperamide [Imodium] 2 mg PO ASDIRECTED PRN 11/16/18 [History] Magnesium Hydroxide [Milk of Magnesia] 1 dose PO ASDIRECTED PRN 11/16/18 [ History] Midodrine 10 mg PO TID 11/16/18 [History] Non-Formulary Medication [NF Drug] 1 tab PO DAILY 11/16/18 [History] Warfarin [Coumadin] 2 mg PO DAILY #0 11/19/18 [Rx] Oxygen Therapy Mode: Room Air Patient Handouts: Dehydration, Adult, [id number] Referrals: Sravan Eubanks MD [Primary Care Provider] - (Follow up as scheduled on November 20.) - Discharge Summary/Plan Comment DC Time >30 min.: No Discharge Summary/Plan Comment: Discharge Diagnoses: Supratherapeutic INR- resolved Falls Hypotension Orthostatic Hypotension Afib Porcine heart valve Chronic anticoagulation Solo was admitted secondary to falls along with supratherapeutic INR at 13. Hgb was also noted to be 7.1, no active bleeding noted. He was treated with 2 units PRBCs and Hgb elevated to 10 and is stable at 9.6 this morning. His daughter was here this morning and reports he is doing much better, continues to be dizzy when initially standing up, but overall appears much better. She feels he got dehydrated and quit eating, but still taking medications. Could be why his INR elevated so high. She reports a few years ago he had a work up for bleeding and they noted "spots in his colon". Solo did not want anything done about this and does not want any more done now. We discussed if he bleeding from his colon, he will continue to bleed if he is taking his Coumadin as well as increased risk for falls and trauma to his head which could lead to hemorrhage, but if he were to stop that he may be at elevated risk for stroke. He and his daughter at this time would like to continue Coumadin and again do not want any further investigation for anemia etiology. Regarding hypotension, We will stop Proscar and Flomax. He has been on these for a long time and unsure what was going on when Dr Lara started these. I did recommend holding these for now and speaking with PCP and possible Dr Lara if concerns with urination return. But due to hypotension with Orthostatic hypotension these should be held and BPs monitored. Continue Midodrine 10 mg TID. Today INR is 3.18, will give him 4 mg Coumadin with repeat labwork in am with Dr Eubanks. Continue home dosing of Coumadin. I will attempt to speak with Dr Eubanks regarding Solo. Otherwise he does have appointment with Dr Eubanks in the morning and daughter wants him to see him still, which I agree with. PT/OT will be ordered upon discharge to [facility]. he is to return to the ED or clinic if concerns should arise. - General Info Date of Service: 11/19/18 Admission Dx/Problem (Free Text: falls Subjective Update: Sitting up in the chair. Doing well. Feels improved. Eating well. NO Chest pain or shortness of breath. reports his butt hurts from where he fell. Eager to go home today. Functional Status: Reports: Pain Controlled, Tolerating Diet, Ambulating, Urinating - Review of Systems General: Reports: No Symptoms. Denies: Weakness, Fatigue HEENT: Reports: No Symptoms. Denies: Sore Throat, Rhinitis, Visual Changes Pulmonary: Reports: No Symptoms. Denies: Shortness of Breath Cardiovascular: Reports: Lightheadedness (initially when standing up). Denies: Chest Pain Gastrointestinal: Reports: No Symptoms. Denies: Abdominal Pain, Melena, Nausea , Vomiting Genitourinary: Reports: No Symptoms. Denies: Dysuria, Frequency, Hematuria Musculoskeletal: Reports: Other (buttocks) Neurological: Reports: No Symptoms Psychiatric: Reports: No Symptoms - Patient Data Vitals - Most Recent: Last Vital Signs Temp 97.1 F 11/19/18 12:00 Pulse 75 11/19/18 12:00 Resp 18 11/19/18 12:00 BP 98/66 11/19/18 12:00 Pulse Ox 95 11/19/18 12:00 Orthostatic Blood Pressure [ 84/57 Supine] Orthostatic Blood Pressure [ 68/29 Standing] Orthostatic Blood Pressure [ 70/38 Sitting] Weight - Most Recent: 61.4 kg I&O - Last 24 hours: Intake & Output 11/18/18 11/19/18 11/19/18 22:59 06:59 14:59 Intake Total 1440 700 Output Total 600 1100 Balance 840 -400 Lab Results - Last 24 hrs: Laboratory Results - last 24 hr 11/19/18 11/19/18 11/19/18 Range/Units 05:30 05:30 07:54 WBC 5.64 (4.0-11.0) K/uL RBC 3.36 L (4.50-5.90) M/uL Hgb 9.6 L (13.0-17.0) g/dL Hct 29.3 L (38.0-50.0) % MCV 87.2 (80.0-98.0) fL MCH 28.6 (27.0-32.0) pg MCHC 32.8 (31.0-37.0) g/dL RDW Std Deviation 55.0 (28.0-62.0) fl RDW Coeff of Jay 18 H (11.0-15.0) % Plt Count 177 (150-400) K/uL MPV 9.20 (7.40-12.00) fL Neut % (Auto) 69.7 (48.0-80.0) % Lymph % (Auto) 14.4 L (16.0-40.0) % [place] % (Auto) 11.3 (0.0-15.0) % Eos % (Auto) 4.1 (0.0-7.0) % Baso % (Auto) 0.5 (0.0-1.5) % Neut # (Auto) 3.9 (1.4-5.7) K/uL Lymph # (Auto) 0.8 (0.6-2.4) K/uL [place] # (Auto) 0.6 (0.0-0.8) K/uL Eos # (Auto) 0.2 (0.0-0.7) K/uL Baso # (Auto) 0.0 (0.0-0.1) K/uL Nucleated RBC % 0.0 /100WBC Nucleated RBCs # 0 K/uL INR 3.18 Sodium 136 (136-148) mmol/L Potassium 4.4 (3.5-5.1) mmol/L Chloride 105 (98-107) mmol/L Carbon Dioxide 23.7 (21.0-32.0) mmol/L BUN 24 H (7.0-18.0) mg/dL Creatinine 1.2 (0.8-1.3) mg/dL Est Cr Clr Drug Dosing 39.09 mL/min Estimated GFR (MDRD) 57.5 ml/min Glucose 93 (74-106) mg/dL Calcium 8.6 (8.5-10.1) mg/dL Med Orders - Current: Current Medications Acetaminophen (Tylenol) 650 mg PO Q4H PRN PRN Reason: Pain (mild 1-3) Al Hydroxide/Mg Hydroxide (Mag-Al Plus) 30 ml PO QID PRN PRN Reason: Heartburn Digoxin (Lanoxin) 125 mcg PO BEDTIME [facility] Last Admin: 11/18/18 20:30 Dose: 125 mcg Diphenhydramine HCl (Benadryl) 25 mg PO BEDTIME [facility] Last Admin: 11/18/18 20:30 Dose: 25 mg Docusate Sodium (Colace) 100 mg PO BID PRN PRN Reason: Constipation Donepezil HCl (Aricept) 10 mg PO BEDTIME [facility] Last Admin: 11/18/18 20:29 Dose: 10 mg Ferrous Sulfate (Ferrous Sulfate) 325 mg PO DAILY [facility] Last Admin: 11/19/18 09:03 Dose: 325 mg Levothyroxine Sodium (Levothyroxine) 75 mcg PO ACBREAKFAST [facility] Last Admin: 11/19/18 06:33 Dose: 75 mcg Memantine (Namenda) 10 mg PO DAILY [facility] Last Admin: 11/19/18 09:03 Dose: 10 mg Midodrine (Midodrine) 10 mg PO TIDAC [facility] Last Admin: 11/19/18 12:00 Dose: 10 mg Oxycodone HCl (Oxycodone) 5 mg PO Q4H PRN PRN Reason: Pain (severe 7-10) Sodium Chloride (Saline Flush) 10 ml FLUSH ASDIRECTED PRN PRN Reason: Keep Vein Open Sodium Chloride (Saline Flush) 2.5 ml FLUSH ASDIRECTED PRN PRN Reason: Keep Vein Open Discontinued Medications Acetaminophen (Tylenol) 650 mg PO NOW ONE Stop: 11/17/18 19:01 Last Admin: 11/17/18 18:59 Dose: 650 mg Diphenhydramine HCl (Benadryl) 50 mg IVPUSH ONETIME ONE Stop: 11/17/18 19:01 Last Admin: 11/17/18 19:00 Dose: 50 mg Finasteride (Proscar) 5 mg PO DAILY [facility] Last Admin: 11/19/18 09:03 Dose: 5 mg Furosemide (Lasix) 20 mg IVPUSH NOW ONE Stop: 11/17/18 21:31 Last Admin: 11/17/18 21:43 Dose: 20 mg Sodium Chloride (Normal Saline) 1,000 mls @ 70 mls/hr IV ASDIRECTED EFE Stop: 11/16/18 21:00 Last Infusion: 11/16/18 20:30 Dose: Infused Midodrine (Midodrine) 10 mg PO DAILY [facility] Last Admin: 11/18/18 09:31 Dose: 10 mg Midodrine (Midodrine) 5 mg PO TIDAC [facility] Last Admin: 11/19/18 11:59 Dose: Not Given Tamsulosin HCl (Flomax) 0.4 mg PO BEDTIME [facility] Last Admin: 11/18/18 20:30 Dose: 0.4 mg Warfarin Sodium (Coumadin) 4 mg PO ONETIME ONE Stop: 11/19/18 12:22 Last Admin: 11/19/18 13:29 Dose: 4 mg - Exam General: Reports: Alert, Oriented, Cooperative, No Acute Distress Neck: Reports: Supple Lungs: Reports: Clear to Auscultation, Normal Respiratory Effort Cardiovascular: Reports: Regular Rate, Regular Rhythm GI/Abdominal Exam: Normal Bowel Sounds, Soft, Non-Tender Extremities: Normal Inspection, Normal Range of Motion, Non-Tender Skin: Reports: Ecchymosis (noted to bilateral arms) Neurological: Reports: No New Focal Deficit Psy/Mental Status: Reports: Alert, Normal Affect, Normal Mood *Q Meaningful Use (DIS) - VTE *Q VTE Mechanical Contraindications *Q: At Risk for Falls VTE Pharmacological Contraindications *Q: Risk of Bleeding
== END 2018-11-19 15:25 | disposition home or self-care (01) ==
LOC: MW.ED 18:52 → MW.MS 20:48 → UNDOADMOB 20:48 → MW.MS 21:45
PROVIDERS: ADMIT Internal Medicine; ATTEND Internal Medicine
DX: S50.02XA Contusion of left elbow, initial encounter (principal); W19.XXXA Unspecified fall, initial encounter; Z91.81 History of falling; E86.0 Dehydration; T45.511A Poisoning by anticoagulants, accidental (unintentional), initial encounter; I48.2 Chronic atrial fibrillation; F03.90 Unspecified dementia, unspecified severity, without behavioral disturbance, psychotic disturbance, mood disturbance, and anxiety; I95.1 Orthostatic hypotension; E03.9 Hypothyroidism, unspecified; Z79.01 Long term (current) use of anticoagulants; Z79.899 Other long term (current) drug therapy; Z79.890 Hormone replacement therapy; Z95.3 Presence of xenogenic heart valve
CPT/HCPCS: 36415; 36430; 70450; 71045; 72100; 72170; 73030; 73551; 73562; 80048; 80053; 80162; 81001; 83735; 84100; 84443; 84484; 85025; 85610; 86850; 86900; 86901; 86920; 86921; 86922; 87086; 93005; 96361; 96374; 96375; 97161; 97165; 99285; A9270; G0378; J1200; J1940; J7040; P9016; 96360

== ENCOUNTER 2020-07-30 11:36 | Inpatient (IN) | payer MEDICARE, BC, OTHER ==
[2020-07-30] MEDS ORDERED: Sodium Chloride 0.9% 1,000 ML IV ONE (12:05)
--- NOTE | 2020-07-30 13:15 | PCM.SN.2 ---
- Free Text/Narrative Note: 12-Lead ECG Interpretation Acquired: 12:32 PM Rhythm: Paced rhythm Rate: 107 bpm Intervals: Paced Ectopy: None RV Strain: No obvious RV strain pattern. ST Segments/T-Waves: No notable changes Acute Ischemic Changes: None apparent Interpretation: No STEMI, no significant change from 11/16/2018.
--- NOTE | 2020-07-30 13:22 | CR ---
INDICATION: Trauma, fall TECHNIQUE: Chest 1 views COMPARISON: 11/16/2018 FINDINGS: Cardiovascular and mediastinum: Unchanged pacemaker. Stable cardiomegaly. Normal pulmonary vasculature. Lungs and pleural spaces: Lungs are clear. No sign of infiltrate or mass. No sign of pleural effusion. No pneumothorax. Bones and soft tissues: No significant findings. IMPRESSION: No acute findings and no significant changes from the prior exam. Dictated by Leland Bob MD @ Jul 30 2020 1:20PM Signed by Dr. Leland Bob @ Jul 30 2020 1:21PM
--- NOTE | 2020-07-30 13:26 | EDM.PDOC ---
ED HPI GENERAL MEDICAL PROBLEM - General Chief Complaint: General Stated Complaint: LOW HEMOGLOBIN Time Seen by Provider: 07/30/20 11:39 Source of Information: Reports: Patient, Family History Limitations: Reports: No Limitations - History of Present Illness INITIAL COMMENTS - FREE TEXT/NARRATIVE: HISTORY AND PHYSICAL: History of present illness: Patient is an 89-year-old male, h/o dementia, afib on warfarin, valve replacement s/p pacemaker, colon tumor, who presents to the ED today with his daughter for concern of low hemoglobin levels that were drawn this morning by his primary care provider, Dr. Eubanks. Per patient's daughter, patient was having routine lab work done with his primary care provider this morning and received a call that she needed to bring patient to the emergency room due to low hemoglobin levels. Daughter states that patient has a history of dementia and is unable to fully speak for himself. Daughter states that over the past week he has been more weak in general and sleeping more. Daughter states that he lives at the [facility] and was told that a few days ago he had a fall but states that he has seemed to be fine despite the fall. Daughter states that she does not know much detail about the fall but he has not been complaining about any pain and she has not noticed any bruising or injuries. Daughter states that she has noticed that he has had some bloody noses but has not been significant according to daughter and she states that he has had a "colon tumor "in the past that he has had issues with bleeding which is why he continues to have lab work monitored monthly. Daughter states that he is a DNR. Patient states he feels cold from being outside in the snow but denies any other complaints at this time. Patient denies fever, chills, chest pain, shortness of breath, or cough. Denies headache, neck stiff ness, change in vision, syncope, or near syncope. Denies nausea, vomiting, abdominal pain, diarrhea, constipation, or dysuria. Has not noted any blood in urine or stool. Patient has been eating and drinking appropriately. Review of systems: As per history of present illness and below otherwise all systems reviewed and negative. Past medical history: As per history of present illness and as reviewed below otherwise noncontributory. Surgical history: As per history of present illness and as reviewed below otherwise noncontributory. Social history: See social history for further information Family history: As per history of present illness and as reviewed below otherwise noncontributo ry. Physical exam: General: Patient is alert, oriented, and in no acute distress. Patient laying comfortably on exam table. HEENT: Atraumatic, normocephalic, pupils equal and reactive bilaterally, ne gative for conjunctival pallor or scleral icterus, mucous membranes moist, throat clear, neck supple, nontender, trachea midline. No drooling or trismus noted. No meningeal signs. No hot potato voice noted. Lungs: Auscultation deferred due to current COV-ID 19 outbreak. Heart: Patient speaking clearly without breathlessness, no wheezing or stridor, no accessory muscle use or respiratory distress. Auscultation deferred due to current COV-ID 19 outbreak. Abdomen: Soft, nondistended, nontender. Negative for masses or hepatosplenomegaly. Negative for costovertebral tenderness. Pelvis: Stable nontender. Genitourinary: Deferred. Rectal: Bryologist at bedside Ofelia M. Tone intact. No obvious masses, rashes, fissures, or hemorrhoids noted. Hemoccult positive with slight blood tinged stool but no leatha bright red blood. Skin: Intact, extremities are cool, pale, dry. No lesions or rashes noted. Extremities: Atraumatic, negative for cords or calf pain. Neurovascular unremarkable. Neuro: Awake, alert, oriented. Cranial nerves II through XII unremarkable. Cerebellum unremarkable. Motor and sensory unremarkable throughout. Exam nonfocal. Notes: Hemoccult positive. We did receive paperwork from the assisted living home which does show that patient is DNR status. Lab did call stating that patients INR cannot be resulted because blood will not clot, so likely INR is >13.83 but per population health manager cannot result due to this. Daughter did state on reexamination, that patient was given excess doses by accident at the nursing facility of his warfarin. We did receive fax information in regards to patients living will and power of assistant city attorney. 15:00: Patients Gabby is his POA and is agreeable to blood products and warfarin reversal and gives verbal consent over the phone. She does not want patient to be transferred to a different facility but is accepting of him being admitted to inpatient at our facility. Dr. Galeana consulted on patient and will admit to inpatient. Diagnostics: Hemoccult, EKG, CBC, CMP, UA, type and screen/cross, CXR, trop, head ct, PT/INR, COVID, VBG, Fibrinogen, Ptt, lactate Therapeutics: NS, packed RBCs, KCentra, Vitk, Impression: Gastrointestinal bleed Symptomatic anemia Supratherapeutic INR >13.83 Metabolic acidosis Acute kidney injury Plan: Admit to inpatient to Dr. Galeana Definitive disposition and diagnosis as appropriate pending reevaluation and review of above. - Related Data Allergies Allergy/AdvReac Type Severity Reaction Status Date / Time No Known Allergies Allergy Verified 07/30/20 12:00 Home Meds: Home Meds Digoxin 125 mcg PO BEDTIME 05/24/15 [History] Donepezil [Aricept] 10 mg PO BEDTIME 09/03/15 [History] Lutein/Minerals/Vit A,C & E [Ocuvite] 1 each PO BID 09/03/15 [History] Memantine [Namenda] 10 mg PO BID 09/03/15 [History] Multivitamin [Multi-Vitamin Daily] 1 each PO BEDTIME 09/03/15 [History] Acetaminophen/Diphenhydramine [Tylenol Pm Ex-Strength Caplet] 1 tab PO BEDTIME 11/16/18 [History] Alum Hydrox/Mag Hydrox/Simeth [Maalox Advanced] 30 ml PO QID PRN 11/16/18 [History] Ferrous Sulfate 1 tab PO BID 11/16/18 [History] Loperamide [Imodium] 2 mg PO QID PRN 11/16/18 [History] Magnesium Hydroxide [Milk of Magnesia] 30 ml PO DAILY PRN 11/16/18 [History] Midodrine 10 mg PO TID 11/16/18 [History] Warfarin [Coumadin] 2 mg PO DAILY #0 11/19/18 [Rx] Acetaminophen 650 mg PO Q4H PRN 07/30/20 [History] Calc/D3/Mag/Zn/[place]/Mg/[place] [Calcium 600 MG Plus Vit D] 1 tab PO BID 07/30/20 [History] Carboxymethylcellulose Sodium [Artificial Tears] 1 drop EYEBOTH Q6H PRN 07/30/20 [History] Diclofenac Sodium [Voltaren 1% Gel] 1 applic TD Q4H PRN 07/30/20 [History] Dorzolamide/Timolol [Cosopt 2%-0.5% Ophth Soln] 1 drop EYEBOTH BID 07/30/20 [History] Finasteride 5 mg PO DAILY 07/30/20 [History] Latanoprost/Pf [Latanoprost 0.005% Eye Drop] 1 drop EYEBOTH BEDTIME 07/30/20 [History] Levothyroxine Sodium [Levoxyl] 100 mcg PO ACBREAKFAST 07/30/20 [History] Loperamide [Imodium] 4 mg PO .FIRST LOOSE STOOL PRN 07/30/20 [History] Non-Formulary Medication [NF Drug] 20 mg PO .PREVAGEN DAILY 07/30/20 [History] guaiFENesin 100 mg PO Q4H PRN 07/30/20 [History] Past Medical History HEENT History: Reports: None Cardiovascular History: Reports: Afib, Heart Valve Replacement, Pacemaker Other Cardiovascular History: low blood pressure Respiratory History: Reports: None Other Gastrointestinal History: tumors in colon Genitourinary History: Reports: None Musculoskeletal History: Reports: Osteoarthritis Neurological History: Reports: Other (See Below) Other Neuro History: Dementia Psychiatric History: Reports: Dementia Endocrine/Metabolic History: Reports: Hypothyroidism Hematologic History: Reports: None Immunologic History: Reports: None Dermatologic History: Reports: None - Infectious Disease History Infectious Disease History: Reports: Chicken Pox - Past Surgical History Cardiovascular Surgical History: Reports: AAA Repair Musculoskeletal Surgical History: Reports: Other (See Below) Other Musculoskeletal Surgeries/Procedures:: Fx Pelvis Social & Family History - Family History Family Medical History: Noncontributory - Tobacco Use Tobacco Use Status *Q: Never Tobacco User - Caffeine Use Caffeine Use: Reports: None - Recreational Drug Use Recreational Drug Use: No - Living Situation & Occupation Living situation: Reports: , with Significant Other, Assisted Living Occupation: Retired ED ROS GENERAL - Review of Systems Review Of Systems: Comprehensive ROS is negative, except as noted in HPI. ED EXAM, GENERAL - Physical Exam Exam: See Below (see dictation) Course - Vital Signs Last Recorded V/S: Last Vital Signs Temp 98.2 F 07/30/20 17:24 Pulse 72 07/30/20 17:24 Resp 18 07/30/20 17:24 BP 145/84 H 07/30/20 17:24 Pulse Ox 100 07/30/20 17:24 - Orders/Labs/Meds Orders: Active Orders 24 hr Category Date Time Status EKG Documentation Completion [RC] STAT Care 07/30/20 12:08 Active Verify Patient Consent Obtain [RC] ASDIRECTED Care 07/30/20 13:11 Active RED BLOOD CELLS LP [BBK] Stat Lab 07/30/20 13:10 Results TYPE AND SCREEN [BBK] Stat Lab 07/30/20 13:10 Results UA RFX NELI AND CULT IF INDIC [URIN] Stat Lab 07/30/20 12:05 Ordered Transfuse Red Blood Cells [COMM] Stat Oth 07/30/20 13:10 Ordered Medication Orders Digoxin (Lanoxin) 125 mcg PO BEDTIME EFE Donepezil HCl (Aricept) 10 mg PO BEDTIME EFE Dorzolamide/Timolol (Cosopt 2%-0.5% Ophth Soln) 0 ml EYEBOTH BID EFE Ferrous Sulfate (Ferrous Sulfate) 325 mg PO BID EFE Finasteride (Proscar) 5 mg PO DAILY EFE Levothyroxine Sodium (Synthroid) 100 mcg PO ACBREAKFAST EFE Memantine (Namenda) 10 mg PO BID EFE Midodrine (Midodrine) 10 mg PO TID EFE Labs: Laboratory Tests 07/30/20 07/30/20 07/30/20 Range/Units 12:40 13:10 13:10 WBC 12.60 H (4.0-11.0) K/uL RBC 2.00 L (4.50-5.90) M/uL Hgb 6.1 L (13.0-17.0) g/dL Hct 18.7 L (38.0-50.0) % MCV 93.5 (80.0-98.0) fL MCH 30.5 (27.0-32.0) pg MCHC 32.6 (31.0-37.0) g/dL RDW Std Deviation 57.0 (28.0-62.0) fl RDW Coeff of Jay 18 H (11.0-15.0) % Plt Count 227 (150-400) K/uL MPV 9.60 (7.40-12.00) fL Neut % (Auto) 93.9 H (48.0-80.0) % Lymph % (Auto) 1.8 L (16.0-40.0) % [place] % (Auto) 4.3 (0.0-15.0) % Eos % (Auto) 0.0 (0.0-7.0) % Baso % (Auto) 0.0 (0.0-1.5) % Neut # (Auto) 11.8 H (1.4-5.7) K/uL Lymph # (Auto) 0.2 L (0.6-2.4) K/uL [place] # (Auto) 0.5 (0.0-0.8) K/uL Eos # (Auto) 0.0 (0.0-0.7) K/uL Baso # (Auto) 0.0 (0.0-0.1) K/uL Nucleated RBC % 0.0 /100WBC Nucleated RBCs # 0 K/uL INR APTT (18.6-31.3) SEC Fibrinogen (215-411) mg/dL VBG pH (7.31-7.41) VBG pCO2 (35-45) mmHG VBG pO2 (30-40) mmHG VBG HCO3 (22-30) mEq/L VBG Total CO2 (41-51) mmol/L VBG Base Excess (-3.0-3.0) Lactate (0.20-2.00) mmol/L Sodium 135 L (136-148) mmol/L Potassium 4.5 (3.5-5.1) mmol/L Chloride 108 H (98-107) mmol/L Carbon Dioxide 12.4 L (21.0-32.0) mmol/L BUN 66 H (7.0-18.0) mg/dL Creatinine 2.3 H (0.8-1.3) mg/dL Est Cr Clr Drug Dosing 15.97 mL/min Estimated GFR (MDRD) 27.0 ml/min Glucose 99 (74-106) mg/dL Calcium 7.8 L (8.5-10.1) mg/dL Total Bilirubin 0.4 (0.2-1.0) mg/dL AST 42 H (15-37) IU/L ALT 21 (14-63) IU/L Alkaline Phosphatase 112 (46-116) U/L Troponin I 0.051 (0.000-0.056) ng/mL Total Protein 5.1 L (6.4-8.2) g/dL Albumin 2.5 L (3.4-5.0) g/dL Globulin 2.6 (2.6-4.0) g/dL Albumin/Globulin Ratio 1.0 (0.9-1.6) Lipase 344 (73-393) U/L SARS-CoV-2 RNA (DANIEL) (NEGATIVE) Blood Type O NEGATIVE Antibody Screen NEGATIVE Crossmatch See Detail 07/30/20 07/30/20 07/30/20 Range/Units 13:10 13:10 13:20 WBC (4.0-11.0) K/uL RBC (4.50-5.90) M/uL Hgb (13.0-17.0) g/dL Hct (38.0-50.0) % MCV (80.0-98.0) fL MCH (27.0-32.0) pg MCHC (31.0-37.0) g/dL RDW Std Deviation (28.0-62.0) fl RDW Coeff of Jay (11.0-15.0) % Plt Count (150-400) K/uL MPV (7.40-12.00) fL Neut % (Auto) (48.0-80.0) % Lymph % (Auto) (16.0-40.0) % [place] % (Auto) (0.0-15.0) % Eos % (Auto) (0.0-7.0) % Baso % (Auto) (0.0-1.5) % Neut # (Auto) (1.4-5.7) K/uL Lymph # (Auto) (0.6-2.4) K/uL [place] # (Auto) (0.0-0.8) K/uL Eos # (Auto) (0.0-0.7) K/uL Baso # (Auto) (0.0-0.1) K/uL Nucleated RBC % /100WBC Nucleated RBCs # K/uL INR APTT 115.1 H (18.6-31.3) SEC Fibrinogen 272 (215-411) mg/dL VBG pH (7.31-7.41) VBG pCO2 (35-45) mmHG VBG pO2 (30-40) mmHG VBG HCO3 (22-30) mEq/L VBG Total CO2 (41-51) mmol/L VBG Base Excess (-3.0-3.0) Lactate (0.20-2.00) mmol/L Sodium (136-148) mmol/L Potassium (3.5-5.1) mmol/L Chloride (98-107) mmol/L Carbon Dioxide (21.0-32.0) mmol/L BUN (7.0-18.0) mg/dL Creatinine (0.8-1.3) mg/dL Est Cr Clr Drug Dosing mL/min Estimated GFR (MDRD) ml/min Glucose (74-106) mg/dL Calcium (8.5-10.1) mg/dL Total Bilirubin (0.2-1.0) mg/dL AST (15-37) IU/L ALT (14-63) IU/L Alkaline Phosphatase (46-116) U/L Troponin I (0.000-0.056) ng/mL Total Protein (6.4-8.2) g/dL Albumin (3.4-5.0) g/dL Globulin (2.6-4.0) g/dL Albumin/Globulin Ratio (0.9-1.6) Lipase (73-393) U/L SARS-CoV-2 RNA (DANIEL) NEGATIVE (NEGATIVE) Blood Type Antibody Screen Crossmatch 07/30/20 07/30/20 Range/Units 14:10 14:20 WBC (4.0-11.0) K/uL RBC (4.50-5.90) M/uL Hgb (13.0-17.0) g/dL Hct (38.0-50.0) % MCV (80.0-98.0) fL MCH (27.0-32.0) pg MCHC (31.0-37.0) g/dL RDW Std Deviation (28.0-62.0) fl RDW Coeff of Jay (11.0-15.0) % Plt Count (150-400) K/uL MPV (7.40-12.00) fL Neut % (Auto) (48.0-80.0) % Lymph % (Auto) (16.0-40.0) % [place] % (Auto) (0.0-15.0) % Eos % (Auto) (0.0-7.0) % Baso % (Auto) (0.0-1.5) % Neut # (Auto) (1.4-5.7) K/uL Lymph # (Auto) (0.6-2.4) K/uL [place] # (Auto) (0.0-0.8) K/uL Eos # (Auto) (0.0-0.7) K/uL Baso # (Auto) (0.0-0.1) K/uL Nucleated RBC % /100WBC Nucleated RBCs # K/uL INR APTT (18.6-31.3) SEC Fibrinogen (215-411) mg/dL VBG pH 7.22 L (7.31-7.41) VBG pCO2 30 L (35-45) mmHG VBG pO2 36 (30-40) mmHG VBG HCO3 12 L (22-30) mEq/L VBG Total CO2 13 L (41-51) mmol/L VBG Base Excess -14.1 L (-3.0-3.0) Lactate 0.9 (0.20-2.00) mmol/L Sodium (136-148) mmol/L Potassium (3.5-5.1) mmol/L Chloride (98-107) mmol/L Carbon Dioxide (21.0-32.0) mmol/L BUN (7.0-18.0) mg/dL Creatinine (0.8-1.3) mg/dL Est Cr Clr Drug Dosing mL/min Estimated GFR (MDRD) ml/min Glucose (74-106) mg/dL Calcium (8.5-10.1) mg/dL Total Bilirubin (0.2-1.0) mg/dL AST (15-37) IU/L ALT (14-63) IU/L Alkaline Phosphatase (46-116) U/L Troponin I (0.000-0.056) ng/mL Total Protein (6.4-8.2) g/dL Albumin (3.4-5.0) g/dL Globulin (2.6-4.0) g/dL Albumin/Globulin Ratio (0.9-1.6) Lipase (73-393) U/L SARS-CoV-2 RNA (DANIEL) (NEGATIVE) Blood Type Antibody Screen Crossmatch Meds: Medications Generic Name Dose Route Start Last Admin Trade Name Freq PRN Reason Stop Dose Admin Digoxin 125 mcg 1022/20 21:00 Lanoxin PO BEDTIME EFE Donepezil HCl 10 mg 07/30/20 21:00 Aricept PO BEDTIME EFE Dorzolamide/Timolol 0 ml 07/31/20 09:00 Cosopt 2%-0.5% Ophth Soln EYEBOTH BID EFE Ferrous Sulfate 325 mg 07/30/20 21:00 Ferrous Sulfate PO BID EFE Finasteride 5 mg 07/31/20 09:00 Proscar PO DAILY EFE Levothyroxine Sodium 100 mcg 07/31/20 07:30 Synthroid PO ACBREAKFAST EFE Memantine 10 mg 07/30/20 21:00 Namenda PO BID EFE Midodrine 10 mg 07/30/20 22:00 Midodrine PO TID EFE Discontinued Medications Generic Name Dose Route Start Last Admin Trade Name Alex PRN Reason Stop Dose Admin Factor IX (Pha) 5,000 unit 07/30/20 15:13 07/30/20 15:21 Kcentra IV 07/30/20 15:14 5,000 unit NOW STA Administration Factor IX (Pha) 5,000 unit 07/30/20 15:12 07/30/20 15:21 Kcentra IV 07/30/20 15:13 Not Given ONETIME ONE Sodium Chloride 1,000 mls @ 500 mls/hr 07/30/20 12:05 07/30/20 12:13 Normal Saline IV 07/30/20 14:04 500 mls/hr BOLUS ONE Administration Phytonadione 10 mg/ Sodium 51 mls @ 100 mls/hr 07/30/20 14:25 07/30/20 15:18 Chloride IV 07/30/20 14:55 100 mls/hr NOW ONE Administration Departure - Departure Time of Disposition: 15:14 Disposition: Admitted As Inpatient 68 Clinical Impression: Symptomatic anemia, Supratherapeutic INR, Metabolic acidosis, Acute kidney injury Gastrointestinal bleed Qualifiers: GI bleed type/associated pathology: unspecified gastrointestinal hemorrhage type Qualified Code(s): K92.2 - Gastrointestinal hemorrhage, unspecified - Discharge Information Sepsis Event Note (ED) - Evaluation Sepsis Screening Result: No Definite Risk - Focused Exam Vital Signs: Vital Signs Temp Pulse Resp BP Pulse Ox 07/30/20 14:16 70 18 155/101 H 94 L 07/30/20 13:46 70 157/91 H 94 L 07/30/20 13:16 71 137/103 H 93 L 07/30/20 13:01 84 134/77 95 07/30/20 12:48 78 94 L 07/30/20 12:22 92 L 07/30/20 11:54 96.3 F L 63 18 108/73 - My Orders Last 24 Hours: My Active Orders 07/30/20 12:05 UA RFX NELI AND CULT IF INDIC [URIN] Stat 07/30/20 12:08 EKG Documentation Completion [RC] STAT 07/30/20 13:10 RED BLOOD CELLS LP [BBK] Stat TYPE AND SCREEN [BBK] Stat Transfuse Red Blood Cells [COMM] Stat 07/30/20 13:11 Verify Patient Consent Obtain [RC] ASDIRECTED - Assessment/Plan Last 24 Hours: My Active Orders 07/30/20 12:05 UA RFX NELI AND CULT IF INDIC [URIN] Stat 07/30/20 12:08 EKG Documentation Completion [RC] STAT 07/30/20 13:10 RED BLOOD CELLS LP [BBK] Stat TYPE AND SCREEN [BBK] Stat Transfuse Red Blood Cells [COMM] Stat 07/30/20 13:11 Verify Patient Consent Obtain [RC] ASDIRECTED
[2020-07-30 13:52] LABS: CARBON DIOXIDE,CO2 12.4 mmol/L (21.0-32.0); POTASSIUM,K 4.5 mmol/L (3.5-5.1)
[2020-07-30] MEDS ORDERED: Factor IX Complex Human 500 UNIT VIAL IV STA ×2 (14:22→15:13)
[2020-07-30] MEDS ORDERED: Phytonadione 10 MG in Sodium Chloride 0.9% 50 ML IV ONE (14:25)
[2020-07-30] MEDS ORDERED: Factor IX Complex Human 500 UNIT VIAL IV ONE (15:12)
--- NOTE | 2020-07-30 15:50 | CT ---
INDICATION: Trauma. On Coumadin COMPARISON: 11/16/2018 TECHNIQUE: CT examination of the head was performed as axial sections without intravenous contrast. Images were obtained from the vertex of the skull through the skull base. Please note that all CT scans at this facility use dose modulation, iterative reconstruction, and/or weight-based dosing when appropriate to reduce radiation dose to as low as reasonably achievable. FINDINGS: The brain shows no sign of mass lesion, mass effect, hemorrhage, or edema. There are involutional changes. There is moderate cortical atrophy and there is moderate white matter disease. There is no hydrocephalus. Basal ganglionic radiodensities are calcifications not hemorrhage and are unchanged. The visualized portions of the orbits are normal in appearance. The osseous structures are normal in appearance with no sign of abnormality in the skull base or calvarium. IMPRESSION: Involutional changes. No acute-appearing findings. Please note that all CT scans at this facility use dose modulation, iterative reconstruction, and/or weight-based dosing when appropriate to reduce radiation dose to as low as reasonably achievable. Dictated by Lamberto Mendieta MD @ Jul 30 2020 3:46PM Signed by Dr. Lamberto Mendieta @ Jul 30 2020 3:48PM
[2020-07-30] MEDS ORDERED: Non-Formulary Medication 1 Each PO SCH (16:45)
--- NOTE | 2020-07-30 18:30 | PCM.HP.2 ---
H&P History of Present Illness - General Date of Service: 07/30/20 Admit Problem/Dx: Admission Diagnosis/Problem Admission Diagnosis/Problem Anemia due to blood loss Source of Information: Family (daughter), Longterm Records, Provider, RN Notes Reviewed - History of Present Illness Initial Comments - Free Text/Narative: Patient is an 89-year-old male, h/o dementia, afib on warfarin, valve repla cement s/p pacemaker, colon tumor, who presents to the ED today with his daughter for concern of low hemoglobin levels that were drawn this morning by his primary care provider, Dr. Eubanks. Per patient's daughter, patient was having routine lab work done with his primary care provider this morning and received a call that she needed to bring patient to the emergency room due to low hemoglobin levels. Daughter states that patient has a history of dementia and is unable to fully speak for himself. Daughter states that over the past week he has been more weak in general and sleeping more. Daughter states that he lives at the [facility] and was told that a few days ago he had a fall but states that he has seemed to be fine despite the fall. Daughter states that she does not know much detail about the fall but he has not been complaining about any pain and she has not noticed any bruising or injuries. Daughter states that she has noticed that he has had some bloody noses but has not been significant according to daughter and she states that he has had a "colon tumor "in the past that he has had issues with bleeding which is why he continues to have lab work monitored monthly. Daughter states that he is a DNR. Patient states he feels cold from being outside in the snow but denies any other complaints at this time. Patient denies fever, chills, chest pain, shortness of breath, or cough. Denies headache, neck stiff ness, change in vision, syncope, or near syncope. Denies nausea, vomiting, abdominal pain, diarrhea, constipation, or dysuria. Has not noted any blood in urine or stool. Patient has been eating and drinking appropriately. Review of systems: As per history of present illness and below otherwise all systems reviewed and negative. Onset of Symptoms: Reports: Gradual (has mild dementia, therefore unable to provide history. ), Unknown/Unsure Associated Symptoms: Reports: Weakness. Denies: Confusion, Chest Pain, Fever/Chills, Headaches, Malaise, Nausea/Vomiting, Shortness of Breath, Syncope - Related Data Allergies/Adverse Reactions: Allergies Allergy/AdvReac Type Severity Reaction Status Date / Time No Known Allergies Allergy Verified 07/30/20 12:00 Home Medications: Home Meds Digoxin 125 mcg PO BEDTIME 05/24/15 [History] Donepezil [Aricept] 10 mg PO BEDTIME 09/03/15 [History] Lutein/Minerals/Vit A,C & E [Ocuvite] 1 each PO BID 09/03/15 [History] Memantine [Namenda] 10 mg PO BID 09/03/15 [History] Multivitamin [Multi-Vitamin Daily] 1 each PO BEDTIME 09/03/15 [History] Acetaminophen/Diphenhydramine [Tylenol Pm Ex-Strength Caplet] 1 tab PO BEDTIME 11/16/18 [History] Alum Hydrox/Mag Hydrox/Simeth [Maalox Advanced] 30 ml PO QID PRN 11/16/18 [History] Ferrous Sulfate 1 tab PO BID 11/16/18 [History] Loperamide [Imodium] 2 mg PO QID PRN 11/16/18 [History] Magnesium Hydroxide [Milk of Magnesia] 30 ml PO DAILY PRN 11/16/18 [History] Midodrine 10 mg PO TID 11/16/18 [History] Warfarin [Coumadin] 2 mg PO DAILY #0 11/19/18 [Rx] Acetaminophen 650 mg PO Q4H PRN 07/30/20 [History] Calc/D3/Mag/Zn/Huma/Mg/[place] [Calcium 600 MG Plus Vit D] 1 tab PO BID 07/30/20 [History] Carboxymethylcellulose Sodium [Artificial Tears] 1 drop EYEBOTH Q6H PRN 07/30/20 [History] Diclofenac Sodium [Voltaren 1% Gel] 1 applic TD Q4H PRN 07/30/20 [History] Dorzolamide/Timolol [Cosopt 2%-0.5% Ophth Soln] 1 drop EYEBOTH BID 07/30/20 [History] Finasteride 5 mg PO DAILY 07/30/20 [History] Latanoprost/Pf [Latanoprost 0.005% Eye Drop] 1 drop EYEBOTH BEDTIME 07/30/20 [History] Levothyroxine Sodium [Levoxyl] 100 mcg PO ACBREAKFAST 07/30/20 [History] Loperamide [Imodium] 4 mg PO .FIRST LOOSE STOOL PRN 07/30/20 [History] Non-Formulary Medication [NF Drug] 20 mg PO .PREVAGEN DAILY 07/30/20 [History] guaiFENesin 100 mg PO Q4H PRN 07/30/20 [History] Past Medical History HEENT History: Reports: None Cardiovascular History: Reports: Afib, Heart Valve Replacement, Pacemaker Other Cardiovascular History: low blood pressure Respiratory History: Reports: None Other Gastrointestinal History: tumors in colon Genitourinary History: Reports: None Musculoskeletal History: Reports: Osteoarthritis Neurological History: Reports: Other (See Below) Other Neuro History: Dementia Psychiatric History: Reports: Dementia Endocrine/Metabolic History: Reports: Hypothyroidism Hematologic History: Reports: None Immunologic History: Reports: None Dermatologic History: Reports: None - Infectious Disease History Infectious Disease History: Reports: Chicken Pox - Past Surgical History Cardiovascular Surgical History: Reports: AAA Repair Musculoskeletal Surgical History: Reports: Other (See Below) Other Musculoskeletal Surgeries/Procedures:: Fx Pelvis Social & Family History - Family History Family Medical History: Noncontributory - Tobacco Use Tobacco Use Status *Q: Never Tobacco User Tobacco Use Comment: Unable to assess, pt confused, hx dementia - Caffeine Use Caffeine Use: Reports: None Caffeine Use Comment: Unable to assess, pt confused, hx dementia - Recreational Drug Use Recreational Drug Use: No - Living Situation & Occupation Living situation: Reports: , with Significant Other, Assisted Living Occupation: Retired H&P Review of Systems - Review of Systems: Review Of Systems: Comprehensive ROS is negative, except as noted in HPI. Exam - Exam Exam: See Below - Vital Signs Vital Signs: Last Vital Signs Temp 98.2 F 07/30/20 17:24 Pulse 72 07/30/20 17:24 Resp 18 07/30/20 17:24 BP 145/84 H 07/30/20 17:24 Pulse Ox 100 07/30/20 17:24 Weight: 110 lb 3.2 oz - Exam General: Alert, Cooperative HEENT: Conjunctiva Clear, EOMI, Mucosa Moist & [place], Pupils Equal, Pupils Reactive Neck: Supple, Trachea Midline Lungs: Clear to Auscultation, Normal Respiratory Effort Cardiovascular: Regular Rate, Regular Rhythm, Normal S1, Normal S2 GI/Abdominal Exam: Normal Bowel Sounds, Soft, Non-Tender, No Organomegaly, No Distention, No Mass Extremities: Normal Inspection, Normal Capillary Refill, Limited Range of Motion Peripheral Pulses: 2+: Dorsalis Pedis (L), Dorsalis Pedis (R) Skin: Warm, Dry, Intact Neurological: Cranial Nerves Intact, Reflexes Equal Bilateral Neuro Extensive - Mental Status: Alert, Normal Mood/Affect, Disorientation to Time. No: Memory Intact Neuro Extensive - Motor, Sensory, Reflexes: CN II-XII Intact, Normal Gait, Normal Reflexes Psychiatric: Alert, Normal Affect, Normal Mood - Patient Data Lab Results Last 24 hrs: Laboratory Results - last 24 hr 07/30/20 07/30/20 07/30/20 Range/Units 12:40 13:10 13:10 WBC 12.60 H (4.0-11.0) K/uL RBC 2.00 L (4.50-5.90) M/uL Hgb 6.1 L (13.0-17.0) g/dL Hct 18.7 L (38.0-50.0) % MCV 93.5 (80.0-98.0) fL MCH 30.5 (27.0-32.0) pg MCHC 32.6 (31.0-37.0) g/dL RDW Std Deviation 57.0 (28.0-62.0) fl RDW Coeff of Jay 18 H (11.0-15.0) % Plt Count 227 (150-400) K/uL MPV 9.60 (7.40-12.00) fL Neut % (Auto) 93.9 H (48.0-80.0) % Lymph % (Auto) 1.8 L (16.0-40.0) % Kimball % (Auto) 4.3 (0.0-15.0) % Eos % (Auto) 0.0 (0.0-7.0) % Baso % (Auto) 0.0 (0.0-1.5) % Neut # (Auto) 11.8 H (1.4-5.7) K/uL Lymph # (Auto) 0.2 L (0.6-2.4) K/uL Kimball # (Auto) 0.5 (0.0-0.8) K/uL Eos # (Auto) 0.0 (0.0-0.7) K/uL Baso # (Auto) 0.0 (0.0-0.1) K/uL Nucleated RBC % 0.0 /100WBC Nucleated RBCs # 0 K/uL INR APTT (18.6-31.3) SEC Fibrinogen (215-411) mg/dL VBG pH (7.31-7.41) VBG pCO2 (35-45) mmHG VBG pO2 (30-40) mmHG VBG HCO3 (22-30) mEq/L VBG Total CO2 (41-51) mmol/L VBG Base Excess (-3.0-3.0) Lactate (0.20-2.00) mmol/L Sodium 135 L (136-148) mmol/L Potassium 4.5 (3.5-5.1) mmol/L Chloride 108 H (98-107) mmol/L Carbon Dioxide 12.4 L (21.0-32.0) mmol/L BUN 66 H (7.0-18.0) mg/dL Creatinine 2.3 H (0.8-1.3) mg/dL Est Cr Clr Drug Dosing 15.97 mL/min Estimated GFR (MDRD) 27.0 ml/min Glucose 99 (74-106) mg/dL Calcium 7.8 L (8.5-10.1) mg/dL Total Bilirubin 0.4 (0.2-1.0) mg/dL AST 42 H (15-37) IU/L ALT 21 (14-63) IU/L Alkaline Phosphatase 112 (46-116) U/L Troponin I 0.051 (0.000-0.056) ng/mL Total Protein 5.1 L (6.4-8.2) g/dL Albumin 2.5 L (3.4-5.0) g/dL Globulin 2.6 (2.6-4.0) g/dL Albumin/Globulin Ratio 1.0 (0.9-1.6) Lipase 344 (73-393) U/L SARS-CoV-2 RNA (DANIEL) (NEGATIVE) Blood Type O NEGATIVE Antibody Screen NEGATIVE Crossmatch See Detail 07/30/20 07/30/20 07/30/20 Range/Units 13:10 13:10 13:20 WBC (4.0-11.0) K/uL RBC (4.50-5.90) M/uL Hgb (13.0-17.0) g/dL Hct (38.0-50.0) % MCV (80.0-98.0) fL MCH (27.0-32.0) pg MCHC (31.0-37.0) g/dL RDW Std Deviation (28.0-62.0) fl RDW Coeff of Jay (11.0-15.0) % Plt Count (150-400) K/uL MPV (7.40-12.00) fL Neut % (Auto) (48.0-80.0) % Lymph % (Auto) (16.0-40.0) % Kimball % (Auto) (0.0-15.0) % Eos % (Auto) (0.0-7.0) % Baso % (Auto) (0.0-1.5) % Neut # (Auto) (1.4-5.7) K/uL Lymph # (Auto) (0.6-2.4) K/uL Kimball # (Auto) (0.0-0.8) K/uL Eos # (Auto) (0.0-0.7) K/uL Baso # (Auto) (0.0-0.1) K/uL Nucleated RBC % /100WBC Nucleated RBCs # K/uL INR APTT 115.1 H (18.6-31.3) SEC Fibrinogen 272 (215-411) mg/dL VBG pH (7.31-7.41) VBG pCO2 (35-45) mmHG VBG pO2 (30-40) mmHG VBG HCO3 (22-30) mEq/L VBG Total CO2 (41-51) mmol/L VBG Base Excess (-3.0-3.0) Lactate (0.20-2.00) mmol/L Sodium (136-148) mmol/L Potassium (3.5-5.1) mmol/L Chloride (98-107) mmol/L Carbon Dioxide (21.0-32.0) mmol/L BUN (7.0-18.0) mg/dL Creatinine (0.8-1.3) mg/dL Est Cr Clr Drug Dosing mL/min Estimated GFR (MDRD) ml/min Glucose (74-106) mg/dL Calcium (8.5-10.1) mg/dL Total Bilirubin (0.2-1.0) mg/dL AST (15-37) IU/L ALT (14-63) IU/L Alkaline Phosphatase (46-116) U/L Troponin I (0.000-0.056) ng/mL Total Protein (6.4-8.2) g/dL Albumin (3.4-5.0) g/dL Globulin (2.6-4.0) g/dL Albumin/Globulin Ratio (0.9-1.6) Lipase (73-393) U/L SARS-CoV-2 RNA (DANIEL) NEGATIVE (NEGATIVE) Blood Type Antibody Screen Crossmatch 07/30/20 07/30/20 Range/Units 14:10 14:20 WBC (4.0-11.0) K/uL RBC (4.50-5.90) M/uL Hgb (13.0-17.0) g/dL Hct (38.0-50.0) % MCV (80.0-98.0) fL MCH (27.0-32.0) pg MCHC (31.0-37.0) g/dL RDW Std Deviation (28.0-62.0) fl RDW Coeff of Jay (11.0-15.0) % Plt Count (150-400) K/uL MPV (7.40-12.00) fL Neut % (Auto) (48.0-80.0) % Lymph % (Auto) (16.0-40.0) % Kimball % (Auto) (0.0-15.0) % Eos % (Auto) (0.0-7.0) % Baso % (Auto) (0.0-1.5) % Neut # (Auto) (1.4-5.7) K/uL Lymph # (Auto) (0.6-2.4) K/uL [place]ball # (Auto) (0.0-0.8) K/uL Eos # (Auto) (0.0-0.7) K/uL Baso # (Auto) (0.0-0.1) K/uL Nucleated RBC % /100WBC Nucleated RBCs # K/uL INR APTT (18.6-31.3) SEC Fibrinogen (215-411) mg/dL VBG pH 7.22 L (7.31-7.41) VBG pCO2 30 L (35-45) mmHG VBG pO2 36 (30-40) mmHG VBG HCO3 12 L (22-30) mEq/L VBG Total CO2 13 L (41-51) mmol/L VBG Base Excess -14.1 L (-3.0-3.0) Lactate 0.9 (0.20-2.00) mmol/L Sodium (136-148) mmol/L Potassium (3.5-5.1) mmol/L Chloride (98-107) mmol/L Carbon Dioxide (21.0-32.0) mmol/L BUN (7.0-18.0) mg/dL Creatinine (0.8-1.3) mg/dL Est Cr Clr Drug Dosing mL/min Estimated GFR (MDRD) ml/min Glucose (74-106) mg/dL Calcium (8.5-10.1) mg/dL Total Bilirubin (0.2-1.0) mg/dL AST (15-37) IU/L ALT (14-63) IU/L Alkaline Phosphatase (46-116) U/L Troponin I (0.000-0.056) ng/mL Total Protein (6.4-8.2) g/dL Albumin (3.4-5.0) g/dL Globulin (2.6-4.0) g/dL Albumin/Globulin Ratio (0.9-1.6) Lipase (73-393) U/L SARS-CoV-2 RNA (DANIEL) (NEGATIVE) Blood Type Antibody Screen Crossmatch Result Diagrams: 07/30/20 12:40 07/30/20 13:10 Sepsis Event Note - Evaluation Sepsis Screening Result: No Definite Risk - Focused Exam Vital Signs: Vital Signs Temp Temp Pulse Resp BP Pulse Ox 07/30/20 17:24 98.2 F 72 18 145/84 H 100 07/30/20 16:57 97.8 F 73 18 144/93 H 100 07/30/20 16:26 97.7 F 72 18 142/97 H 100 07/30/20 15:19 84 142/95 H 99 07/30/20 14:16 70 18 155/101 H 94 L 07/30/20 13:46 70 157/91 H 94 L 07/30/20 13:16 71 137/103 H 93 L 07/30/20 13:01 84 134/77 95 07/30/20 12:48 78 94 L 07/30/20 12:22 92 L 07/30/20 11:54 96.3 F L 63 18 108/73 - Problem List (1) Acute kidney injury SNOMED Code(s): 41626109, 21158860 ICD Code: N17.9 - ACUTE KIDNEY FAILURE, UNSPECIFIED Status: Acute Current Visit: Yes (2) Gastrointestinal bleed SNOMED Code(s): 76647627 ICD Code: K92.2 - GASTROINTESTINAL HEMORRHAGE, UNSPECIFIED Status: Chronic Current Visit: Yes Qualifiers: GI bleed type/associated pathology: unspecified gastrointestinal hemorrhage type Qualified Code(s): K92.2 - Gastrointestinal hemorrhage, unspecified (3) Supratherapeutic INR SNOMED Code(s): 225478571 ICD Code: R79.1 - ABNORMAL COAGULATION PROFILE Status: Acute Current Visit: Yes (4) Symptomatic anemia SNOMED Code(s): 303069548 ICD Code: D64.9 - ANEMIA, UNSPECIFIED Status: Acute Current Visit: Yes Problem List Initiated/Reviewed/Updated: Yes Orders Last 24hrs: Active Orders 24 hr Category Date Time Status Admission Status [Patient Status] [ADT] Stat ADT 07/30/20 15:09 Active Antiembolic Devices [RC] PER UNIT ROUTINE Care 07/30/20 16:29 Active Communication Order [RC] ROUTINE Care 07/30/20 17:33 Active EKG Documentation Completion [RC] STAT Care 07/30/20 12:08 Active Intake and Output [RC] QSHIFT Care 07/30/20 16:27 Active Oxygen Therapy [RC] PRN Care 07/30/20 16:26 Active Up With Assistance [RC] ASDIRECTED Care 07/30/20 16:25 Active VTE/DVT Education [RC] PER UNIT ROUTINE Care 07/30/20 16:26 Active Verify Patient Consent Obtain [RC] ASDIRECTED Care 07/30/20 13:11 Active Vital Signs [RC] Q4H Care 07/30/20 16:26 Active Regular Diet [DIET] Diet 07/30/20 Breakfast Active BASIC METABOLIC PANEL,BMP [CHEM] AM Lab 07/31/20 05:11 Ordered CBC WITH AUTO DIFF [HEME] AM Lab 07/31/20 05:11 Ordered INR,PT,PROTHROMBIN TIME [COAG] AM Lab 07/31/20 05:11 Ordered INR,PT,PROTHROMBIN TIME [COAG] AM Lab 08/01/20 05:11 Ordered INR,PT,PROTHROMBIN TIME [COAG] AM Lab 08/02/20 05:11 Ordered RED BLOOD CELLS LP [BBK] Stat Lab 07/30/20 13:10 Results TYPE AND SCREEN [BBK] Stat Lab 07/30/20 13:10 Results UA RFX NELI AND CULT IF INDIC [URIN] Stat Lab 07/30/20 12:05 Ordered Digoxin [Lanoxin] Med 07/30/20 21:00 Active 125 mcg PO BEDTIME Donepezil [Aricept] Med 07/30/20 21:00 Active 10 mg PO BEDTIME Dorzolamide/Timolol [Cosopt 2%-0.5% Ophth Soln] Med 07/31/20 09:00 Active 0 ml EYEBOTH BID Ferrous Sulfate Med 07/30/20 21:00 Active 325 mg PO BID Finasteride [Proscar] Med 07/31/20 09:00 Active 5 mg PO DAILY Levothyroxine [Synthroid] Med 07/31/20 07:30 Active 100 mcg PO ACBREAKFAST Memantine [Namenda] Med 07/30/20 21:00 Active 10 mg PO BID Midodrine Med 07/30/20 22:00 Active 10 mg PO TID Sequential Compression Device [OM.PC] Per Unit Routine Oth 07/30/20 16:27 Ordered Transfuse Red Blood Cells [COMM] Stat Oth 07/30/20 13:10 Ordered Resuscitation Status Routine Resus Stat 07/30/20 16:25 Ordered Medication Orders Digoxin (Lanoxin) 125 mcg PO BEDTIME EFE Donepezil HCl (Aricept) 10 mg PO BEDTIME EFE Dorzolamide/Timolol (Cosopt 2%-0.5% Ophth Soln) 0 ml EYEBOTH BID EFE Ferrous Sulfate (Ferrous Sulfate) 325 mg PO BID EFE Finasteride (Proscar) 5 mg PO DAILY EFE Levothyroxine Sodium (Synthroid) 100 mcg PO ACBREAKFAST EFE Memantine (Namenda) 10 mg PO BID EFE Midodrine (Midodrine) 10 mg PO TID EFE Assessment/Plan Comment:: Pt is a 89 y/o M with a PMH significant for mild-moderate dementia, A.fib, colon ca. Admitted for anemia secondary to gastrointestinal bleed, MADAN, and a supratherapeutic PTT. 1. Anemia secondary to GI bleed due to previously known colon ca: Hgb was 6.1, will transfuse 2xPRBC, H/H 1 hr post transfusion. With daily CBC to trend HH. Pt has some weakness and pallor on PE. Otherwise, will not be treating the source. 2. MADAN:no fluids at this time, since being transfused, tolerating po intake. Will monitor vitals overnight and consider fluid at maintenance rate tommorow. Also want to avoid dilution of H/H. BUN:66 CR:2.3, trend CMP daily 3.Metabolic acidosis with respiratory compensation:Ph 7.22, bicarb 12.5, secondary to MADAN. On oxygen 3 L's, receiving 2PRBC's 4.Supratheraputic PTT: hold warfarin, daily PT/INR
[2020-07-30] MEDS: Memantine 10 MG Tab PO SCH (21:51)
[2020-07-30] MEDS: Digoxin 125 MCG Tab PO SCH (21:51)
[2020-07-30] MEDS: Donepezil 10 MG Tab PO SCH (21:51)
[2020-07-30] MEDS: Ferrous Sulfate 325 MG Tab PO SCH (21:51)
[2020-07-30] MEDS: Midodrine 5 MG Tab PO SCH (22:31)
[2020-07-31] MEDS: Midodrine 5 MG Tab PO SCH ×3 (05:23→22:06)
[2020-07-31 06:32] LABS: CARBON DIOXIDE,CO2 14.1 mmol/L (21.0-32.0); POTASSIUM,K 4.1 mmol/L (3.5-5.1)
[2020-07-31] MEDS: Levothyroxine 100 MCG Tab PO SCH (06:34)
[2020-07-31] MEDS ORDERED: Non-Formulary Medication 1 Each (Warfarin 2 MG) PO SCH (09:00)
[2020-07-31] MEDS: Finasteride 5 MG Tab PO SCH (09:41)
[2020-07-31] MEDS: Ferrous Sulfate 325 MG Tab PO SCH ×2 (09:41→21:01)
[2020-07-31] MEDS: Memantine 10 MG Tab PO SCH ×2 (09:41→21:01)
[2020-07-31] MEDS ORDERED: Sodium Chloride 0.9% 1,000 ML IV ONE (10:10)
[2020-07-31] MEDS: Dorzolamide/Timolol 2%-0.5% Ophth Soln 10 ML Bottle EYEBOTH SCH ×2 (15:18→21:02)
--- NOTE | 2020-07-31 18:39 | PCM.PN ---
- General Info Date of Service: 07/31/20 Admission Dx/Problem (Free Text): Pt is a 89 y/o M, who was a direct admit for anemia 2/2 colon cancer and supratherapeutic PTT as per labs done at Dr. Joyner's office. Yesterday evening patient was transfused with 2 units PRBC's for a Hgb of 6.6, and his home dose of warfarin for h/o A.fib was held. Pt tolerated the transfusion well, with no signs of transfusion reaction. Of note did not eat very much yesterday evening. Continues to be AOx1 per history of mild-moderate dementia. Was seen an examined at bedside this morning, is stable, afebrile, resting comfortably, and says he rested well. - Review of Systems General: Reports: No Symptoms HEENT: Reports: No Symptoms Pulmonary: Reports: No Symptoms Cardiovascular: Reports: No Symptoms Gastrointestinal: Reports: No Symptoms Genitourinary: Reports: No Symptoms Musculoskeletal: Reports: No Symptoms Skin: Reports: No Symptoms Neurological: Reports: Confusion (per h/o dementia but is AOx1) Psychiatric: Reports: No Symptoms - Patient Data Vitals - Most Recent: Last Vital Signs Temp 97.4 F 07/31/20 15:38 Pulse 69 07/31/20 15:38 Resp 18 07/31/20 15:38 BP 149/93 H 07/31/20 15:38 Pulse Ox 100 07/31/20 12:00 Weight - Most Recent: 110 lb 3.2 oz I&O - Last 24 Hours: Intake & Output 07/31/20 07/31/20 07/31/20 06:59 14:59 22:59 Intake Total 460 350 200 Output Total 100 Balance 460 350 100 Lab Results Last 24 Hours: Laboratory Results - last 24 hr 07/30/20 07/31/20 07/31/20 Range/Units 13:10 05:14 05:14 WBC 11.08 H (4.0-11.0) K/uL RBC 2.78 L (4.50-5.90) M/uL Hgb 8.5 L (13.0-17.0) g/dL Hct 25.5 L (38.0-50.0) % MCV 91.7 (80.0-98.0) fL MCH 30.6 (27.0-32.0) pg MCHC 33.3 (31.0-37.0) g/dL RDW Std Deviation 51.9 (28.0-62.0) fl RDW Coeff of Jay 17 H (11.0-15.0) % Plt Count 137 L (150-400) K/uL MPV 10.00 (7.40-12.00) fL Neut % (Auto) 88.4 H (48.0-80.0) % Lymph % (Auto) 6.1 L (16.0-40.0) % [place] % (Auto) 5.1 (0.0-15.0) % Eos % (Auto) 0.3 (0.0-7.0) % Baso % (Auto) 0.1 (0.0-1.5) % Neut # (Auto) 9.8 H (1.4-5.7) K/uL Lymph # (Auto) 0.7 (0.6-2.4) K/uL [place] # (Auto) 0.6 (0.0-0.8) K/uL Eos # (Auto) 0.0 (0.0-0.7) K/uL Baso # (Auto) 0.0 (0.0-0.1) K/uL Nucleated RBC % 0.3 /100WBC Nucleated RBCs # 0 K/uL INR 1.10 Sodium (136-148) mmol/L Potassium (3.5-5.1) mmol/L Chloride (98-107) mmol/L Carbon Dioxide (21.0-32.0) mmol/L BUN (7.0-18.0) mg/dL Creatinine (0.8-1.3) mg/dL Est Cr Clr Drug Dosing mL/min Estimated GFR (MDRD) ml/min Glucose (74-106) mg/dL Calcium (8.5-10.1) mg/dL Urine Color Urine Appearance Urine pH (5.0-8.0) Ur Specific [place] (1.001-1.035) Urine Protein (NEGATIVE) mg/dL Urine Glucose (UA) (NEGATIVE) mg/dL Urine Ketones (NEGATIVE) mg/dL Urine Occult Blood (NEGATIVE) Urine Nitrite (NEGATIVE) Urine Bilirubin (NEGATIVE) Urine Urobilinogen (<2.0) EU/dL Ur Leukocyte Esterase (NEGATIVE) Urine RBC (0-2/HPF) Urine WBC (0-5/HPF) Ur Epithelial Cells (NONE-FEW) Urine Bacteria (NEGATIVE) Coarse Granular Casts (NEGATIVE) Blood Type O NEGATIVE Antibody Screen NEGATIVE Crossmatch See Detail 07/31/20 07/31/20 07/31/20 Range/Units 05:14 10:40 15:38 WBC (4.0-11.0) K/uL RBC (4.50-5.90) M/uL Hgb 10.1 L (13.0-17.0) g/dL Hct 30.0 L (38.0-50.0) % MCV (80.0-98.0) fL MCH (27.0-32.0) pg MCHC (31.0-37.0) g/dL RDW Std Deviation (28.0-62.0) fl RDW Coeff of Jay (11.0-15.0) % Plt Count (150-400) K/uL MPV (7.40-12.00) fL Neut % (Auto) (48.0-80.0) % Lymph % (Auto) (16.0-40.0) % [place] % (Auto) (0.0-15.0) % Eos % (Auto) (0.0-7.0) % Baso % (Auto) (0.0-1.5) % Neut # (Auto) (1.4-5.7) K/uL Lymph # (Auto) (0.6-2.4) K/uL [place] # (Auto) (0.0-0.8) K/uL Eos # (Auto) (0.0-0.7) K/uL Baso # (Auto) (0.0-0.1) K/uL Nucleated RBC % /100WBC Nucleated RBCs # K/uL INR Sodium 139 (136-148) mmol/L Potassium 4.1 (3.5-5.1) mmol/L Chloride 110 H (98-107) mmol/L Carbon Dioxide 14.1 L (21.0-32.0) mmol/L BUN 64 H (7.0-18.0) mg/dL Creatinine 2.3 H (0.8-1.3) mg/dL Est Cr Clr Drug Dosing 16.00 mL/min Estimated GFR (MDRD) 27.0 ml/min Glucose 77 (74-106) mg/dL Calcium 8.0 L (8.5-10.1) mg/dL Urine Color YELLOW Urine Appearance CLEAR Urine pH 5.5 (5.0-8.0) Ur Specific [place] 1.025 (1.001-1.035) Urine Protein TRACE H (NEGATIVE) mg/dL Urine Glucose (UA) NEGATIVE (NEGATIVE) mg/dL Urine Ketones NEGATIVE (NEGATIVE) mg/dL Urine Occult Blood SMALL H (NEGATIVE) Urine Nitrite NEGATIVE (NEGATIVE) Urine Bilirubin NEGATIVE (NEGATIVE) Urine Urobilinogen 0.2 (<2.0) EU/dL Ur Leukocyte Esterase NEGATIVE (NEGATIVE) Urine RBC 3-6 (0-2/HPF) Urine WBC 0-4 (0-5/HPF) Ur Epithelial Cells RARE (NONE-FEW) Urine Bacteria FEW (NEGATIVE) Coarse Granular Casts 0-1 (NEGATIVE) Blood Type Antibody Screen Crossmatch Med Orders - Current: Current Medications Digoxin (Lanoxin) 125 mcg PO BEDTIME [facility] Last Admin: 07/30/20 21:51 Dose: 125 mcg Documented by: Donepezil HCl (Aricept) 10 mg PO BEDTIME [facility] Last Admin: 07/30/20 21:51 Dose: 10 mg Documented by: Dorzolamide/Timolol (Cosopt 2%-0.5% Ophth Soln) 0 ml EYEBOTH BID [facility] Last Admin: 07/31/20 15:18 Dose: Not Given Documented by: Ferrous Sulfate (Ferrous Sulfate) 325 mg PO BID [facility] Last Admin: 07/31/20 09:41 Dose: 325 mg Documented by: Finasteride (Proscar) 5 mg PO DAILY [facility] Last Admin: 07/31/20 09:41 Dose: 5 mg Documented by: Levothyroxine Sodium (Synthroid) 100 mcg PO ACBREAKFAST [facility] Last Admin: 07/31/20 06:34 Dose: 100 mcg Documented by: Memantine (Namenda) 10 mg PO BID [facility] Last Admin: 07/31/20 09:41 Dose: 10 mg Documented by: Midodrine (Midodrine) 10 mg PO TID [facility] Last Admin: 07/31/20 14:34 Dose: 10 mg Documented by: Discontinued Medications Factor IX (Pha) (Kcentra) 5,000 unit IV NOW STA Stop: 07/30/20 15:14 Last Admin: 07/30/20 15:21 Dose: 5,000 unit Documented by: Factor IX (Pha) (Kcentra) 5,000 unit IV ONETIME ONE Stop: 07/30/20 15:13 Last Admin: 07/30/20 15:21 Dose: Not Given Documented by: Sodium Chloride (Normal Saline) 1,000 mls @ 500 mls/hr IV BOLUS ONE Stop: 07/30/20 14:04 Last Admin: 07/30/20 12:13 Dose: 500 mls/hr Documented by: Phytonadione 10 mg/ Sodium (Chloride) 51 mls @ 100 mls/hr IV NOW ONE Stop: 07/30/20 14:55 Last Admin: 07/30/20 15:18 Dose: 100 mls/hr Documented by: Sodium Chloride (Normal Saline) 1,000 mls @ 125 mls/hr IV ONETIME ONE Stop: 07/31/20 18:09 Last Admin: 07/31/20 10:47 Dose: 125 mls/hr Documented by: - Exam General: Alert, Oriented, Cooperative, No Acute Distress HEENT: Pupils Equal, Pupils Reactive, EOMI, Mucous Membr. Moist/[place]: Supple, No JVD Lungs: Clear to Auscultation, Normal Respiratory Effort Cardiovascular: Regular Rate, Regular Rhythm GI/Abdominal Exam: Normal Bowel Sounds, Soft, Non-Tender, No Organomegaly Extremities: Normal Inspection, Normal Range of Motion, Non-Tender, No Pedal Edema, Normal Capillary Refill Peripheral Pulses: 2+: Dorsalis Pedis (L), Dorsalis Pedis (R) Skin: Warm, Dry, Intact Neurological: No New Focal Deficit Psy/Mental Status: Alert, Normal Affect, Normal Mood Sepsis Event Note - Evaluation Sepsis Screening Result: No Definite Risk - Focused Exam Vital Signs: Vital Signs Temp Temp Pulse Resp BP Pulse Ox 07/31/20 15:38 97.4 F 69 18 149/93 H 07/31/20 14:38 98.7 F 72 18 142/86 H 07/31/20 12:19 97.8 F 70 18 141/84 H 07/31/20 12:04 97.8 F 70 18 140/87 07/31/20 12:00 97.8 F 70 18 140/87 100 07/31/20 11:57 97.8 F 70 18 140/87 07/31/20 08:00 98.2 F 70 18 148/91 H 99 - Problem List & Annotations (1) Acute kidney injury SNOMED Code(s): 62740025, 53478081 Code(s): N17.9 - ACUTE KIDNEY FAILURE, UNSPECIFIED Status: Acute Current Visit: Yes (2) Gastrointestinal bleed SNOMED Code(s): 65381587 Code(s): K92.2 - GASTROINTESTINAL HEMORRHAGE, UNSPECIFIED Status: Chronic Current Visit: Yes Qualifiers: GI bleed type/associated pathology: unspecified gastrointestinal hemorrhage type Qualified Code(s): K92.2 - Gastrointestinal hemorrhage, unspecified (3) Supratherapeutic INR SNOMED Code(s): 937648448 Code(s): R79.1 - ABNORMAL COAGULATION PROFILE Status: Acute Current Visit: Yes (4) Symptomatic anemia SNOMED Code(s): 377603072 Code(s): D64.9 - ANEMIA, UNSPECIFIED Status: Acute Current Visit: Yes - Problem List Review Problem List Initiated/Reviewed/Updated: Yes - My Orders Last 24 Hours: My Active Orders 07/30/20 21:00 Digoxin [Lanoxin] 125 mcg PO BEDTIME Donepezil [Aricept] 10 mg PO BEDTIME Ferrous Sulfate 325 mg PO BID Memantine [Namenda] 10 mg PO BID 07/30/20 22:00 Midodrine 10 mg PO TID 07/31/20 07:30 Levothyroxine [Synthroid] 100 mcg PO ACBREAKFAST 07/31/20 09:00 Dorzolamide/Timolol [Cosopt 2%-0.5% Ophth Soln] 0 ml EYEBOTH BID Finasteride [Proscar] 5 mg PO DAILY 07/31/20 11:15 Consult to Case Management/Amusement Ride Inspector [CONS] Routine 07/31/20 11:28 Communication Order [RC] ROUTINE 08/01/20 05:11 INR,PT,PROTHROMBIN TIME [COAG] AM 08/02/20 05:11 INR,PT,PROTHROMBIN TIME [COAG] AM - Plan Plan:: Pt is a 89 y/o M with a PMH significant for mild-moderate dementia, A.fib, colon ca. Admitted for anemia secondary to gastrointestinal bleed, MADAN, and a supratherapeutic INR/PTT. 1. Anemia secondary to GI bleed due to previously known colon ca: -Improved -Hgb was 6.1 on admission, transfused 2 units PRBC's, H/H 1 hr post transfusion Hgb=8.5. -Transfused with another unit today, with H/H 1 hour post transfusion Hgb= 10.1. -Trend daily CBC for H/H -Pt had some weakness and pallor upon admission. Pallor has improved, difficult to assess level of weakness. But noted to be alert, awake and active; baseline. 2. MADAN:no fluids given yesterday since pt was being transfused, and tolerating po intake. -Stable; BUN 64and CR 2.3, will give 1L NS at 125ml -Trend daily BMP -check UA 3.Supratheraputic PTT: -Improved INR= 1.1, -continue to hold warfarin until discharge -daily PT/INR Dispo planing: touched base with [employer], who spoke with daughter. Pt is to return back to [facility] upon discharge as families goal is to not separate the parents living there together for as long as possible. Daughter is working with staff at facility to ensure more care measures/ assistance. As per case packer; [facility] will discuss with family when they feel it is necessary to escalate care to a place like [facility].
[2020-07-31] MEDS: Donepezil 10 MG Tab PO SCH (21:01)
[2020-07-31] MEDS: Digoxin 125 MCG Tab PO SCH (21:01)
[2020-08-01] MEDS: Midodrine 5 MG Tab PO SCH ×2 (06:44→19:37)
[2020-08-01] MEDS: Levothyroxine 100 MCG Tab PO SCH (06:44)
[2020-08-01 07:48] LABS: CARBON DIOXIDE,CO2 15.5 mmol/L (21.0-32.0); POTASSIUM,K 4.4 mmol/L (3.5-5.1)
[2020-08-01] MEDS: Finasteride 5 MG Tab PO SCH (10:49)
[2020-08-01] MEDS: Memantine 10 MG Tab PO SCH ×2 (10:49→20:36)
[2020-08-01] MEDS: Ferrous Sulfate 325 MG Tab PO SCH ×2 (10:49→20:37)
--- NOTE | 2020-08-01 14:45 | PCM.PN ---
- General Info Date of Service: 08/01/20 - Review of Systems Systems Review Comment:: no complaints, no pain - Patient Data Vitals - Most Recent: Last Vital Signs Temp 36.0 C L 08/01/20 13:01 Pulse 69 08/01/20 13:01 Resp 12 08/01/20 13:01 BP 147/95 H 08/01/20 13:01 Pulse Ox 98 08/01/20 13:01 Weight - Most Recent: 49.986 kg I&O - Last 24 Hours: Intake & Output 07/31/20 08/01/20 08/01/20 22:59 06:59 14:59 Intake Total 200 350 Output Total 100 100 Balance 100 250 Lab Results Last 24 Hours: Laboratory Results - last 24 hr 07/30/20 07/31/20 08/01/20 Range/Units 13:10 15:38 05:35 WBC (4.0-11.0) K/uL RBC (4.50-5.90) M/uL Hgb 10.1 L (13.0-17.0) g/dL Hct 30.0 L (38.0-50.0) % MCV (80.0-98.0) fL MCH (27.0-32.0) pg MCHC (31.0-37.0) g/dL RDW Std Deviation (28.0-62.0) fl RDW Coeff of Jay (11.0-15.0) % Plt Count (150-400) K/uL MPV (7.40-12.00) fL Neut % (Auto) (48.0-80.0) % Lymph % (Auto) (16.0-40.0) % [place] % (Auto) (0.0-15.0) % Eos % (Auto) (0.0-7.0) % Baso % (Auto) (0.0-1.5) % Neut # (Auto) (1.4-5.7) K/uL Lymph # (Auto) (0.6-2.4) K/uL [place] # (Auto) (0.0-0.8) K/uL Eos # (Auto) (0.0-0.7) K/uL Baso # (Auto) (0.0-0.1) K/uL Nucleated RBC % /100WBC Nucleated RBCs # K/uL INR 1.11 Sodium (136-148) mmol/L Potassium (3.5-5.1) mmol/L Chloride (98-107) mmol/L Carbon Dioxide (21.0-32.0) mmol/L BUN (7.0-18.0) mg/dL Creatinine (0.8-1.3) mg/dL Est Cr Clr Drug Dosing mL/min Estimated GFR (MDRD) ml/min Glucose (74-106) mg/dL Calcium (8.5-10.1) mg/dL Total Bilirubin (0.2-1.0) mg/dL AST (15-37) IU/L ALT (14-63) IU/L Alkaline Phosphatase (46-116) U/L Total Protein (6.4-8.2) g/dL Albumin (3.4-5.0) g/dL Globulin (2.6-4.0) g/dL Albumin/Globulin Ratio (0.9-1.6) Crossmatch See Detail 08/01/20 08/01/20 Range/Units 05:35 05:35 WBC 9.59 (4.0-11.0) K/uL RBC 3.33 L (4.50-5.90) M/uL Hgb 10.3 L (13.0-17.0) g/dL Hct 30.5 L (38.0-50.0) % MCV 91.6 (80.0-98.0) fL MCH 30.9 (27.0-32.0) pg MCHC 33.8 (31.0-37.0) g/dL RDW Std Deviation 53.5 (28.0-62.0) fl RDW Coeff of Jay 17 H (11.0-15.0) % Plt Count 111 L (150-400) K/uL MPV 10.00 (7.40-12.00) fL Neut % (Auto) 89.6 H (48.0-80.0) % Lymph % (Auto) 4.5 L (16.0-40.0) % [place] % (Auto) 5.5 (0.0-15.0) % Eos % (Auto) 0.3 (0.0-7.0) % Baso % (Auto) 0.1 (0.0-1.5) % Neut # (Auto) 8.6 H (1.4-5.7) K/uL Lymph # (Auto) 0.4 L (0.6-2.4) K/uL [place] # (Auto) 0.5 (0.0-0.8) K/uL Eos # (Auto) 0.0 (0.0-0.7) K/uL Baso # (Auto) 0.0 (0.0-0.1) K/uL Nucleated RBC % 0.0 /100WBC Nucleated RBCs # 0 K/uL INR Sodium 141 (136-148) mmol/L Potassium 4.4 (3.5-5.1) mmol/L Chloride 113 H (98-107) mmol/L Carbon Dioxide 15.5 L (21.0-32.0) mmol/L BUN 55 H (7.0-18.0) mg/dL Creatinine 1.9 H (0.8-1.3) mg/dL Est Cr Clr Drug Dosing 19.37 mL/min Estimated GFR (MDRD) 33.7 ml/min Glucose 77 (74-106) mg/dL Calcium 8.0 L (8.5-10.1) mg/dL Total Bilirubin 0.7 (0.2-1.0) mg/dL AST 38 H (15-37) IU/L ALT 21 (14-63) IU/L Alkaline Phosphatase 120 H (46-116) U/L Total Protein 5.2 L (6.4-8.2) g/dL Albumin 2.4 L (3.4-5.0) g/dL Globulin 2.8 (2.6-4.0) g/dL Albumin/Globulin Ratio 0.9 (0.9-1.6) Crossmatch Med Orders - Current: Current Medications Digoxin (Lanoxin) 125 mcg PO BEDTIME [facility] Last Admin: 07/31/20 21:01 Dose: 125 mcg Documented by: Donepezil HCl (Aricept) 10 mg PO BEDTIME [facility] Last Admin: 07/31/20 21:01 Dose: 10 mg Documented by: Dorzolamide/Timolol (Cosopt 2%-0.5% Ophth Soln) 0 ml EYEBOTH BID [facility] Last Admin: 07/31/20 21:02 Dose: Not Given Documented by: Ferrous Sulfate (Ferrous Sulfate) 325 mg PO BID [facility] Last Admin: 08/01/20 10:49 Dose: 325 mg Documented by: Finasteride (Proscar) 5 mg PO DAILY [facility] Last Admin: 08/01/20 10:49 Dose: 5 mg Documented by: Levothyroxine Sodium (Synthroid) 100 mcg PO ACBREAKFAST [facility] Last Admin: 08/01/20 06:44 Dose: 100 mcg Documented by: Memantine (Namenda) 10 mg PO BID [facility] Last Admin: 08/01/20 10:49 Dose: 10 mg Documented by: Midodrine (Midodrine) 10 mg PO TID [facility] Last Admin: 08/01/20 06:44 Dose: 10 mg Documented by: Discontinued Medications Factor IX (Pha) (Kcentra) 5,000 unit IV NOW STA Stop: 07/30/20 15:14 Last Admin: 07/30/20 15:21 Dose: 5,000 unit Documented by: Factor IX (Pha) (Kcentra) 5,000 unit IV ONETIME ONE Stop: 07/30/20 15:13 Last Admin: 07/30/20 15:21 Dose: Not Given Documented by: Sodium Chloride (Normal Saline) 1,000 mls @ 500 mls/hr IV BOLUS ONE Stop: 07/30/20 14:04 Last Admin: 07/30/20 12:13 Dose: 500 mls/hr Documented by: Phytonadione 10 mg/ Sodium (Chloride) 51 mls @ 100 mls/hr IV NOW ONE Stop: 07/30/20 14:55 Last Admin: 07/30/20 15:18 Dose: 100 mls/hr Documented by: Sodium Chloride (Normal Saline) 1,000 mls @ 125 mls/hr IV ONETIME ONE Stop: 07/31/20 18:09 Last Admin: 07/31/20 10:47 Dose: 125 mls/hr Documented by: - Exam General: Alert, Cooperative Lungs: Clear to Auscultation, Normal Respiratory Effort Cardiovascular: Regular Rate, Regular Rhythm GI/Abdominal Exam: Normal Bowel Sounds, Soft, Non-Tender Extremities: Non-Tender, No Pedal Edema Skin: Warm, Dry, Intact Neurological: No New Focal Deficit Sepsis Event Note - Evaluation Sepsis Screening Result: No Definite Risk - Focused Exam Vital Signs: Vital Signs Temp Pulse Resp BP Pulse Ox 08/01/20 13:01 36.0 C L 69 12 147/95 H 98 08/01/20 10:50 36.2 C 77 16 149/93 H 96 08/01/20 04:00 35.8 C L 70 14 169/94 H 93 L - Problem List Review Problem List Initiated/Reviewed/Updated: Yes - Plan Plan:: Pt is a 89 y/o M with a PMH significant for mild-moderate dementia, A.fib, colon ca. Admitted for anemia secondary to gastrointestinal bleed, MADAN, and a supratherapeutic INR/PTT. 1. Anemia secondary to GI bleed due to previously known colon lesion: -s/p 3 units of pRBC, Hgb stable at 10.3 2. MADAN: creatiine improving to 1.9 3.Supratheraputic INR - reversed with vitamin K, holding warfarin due to concerns of acute bleed Dispo: likely home in 1-2 days
[2020-08-01] MEDS: Pantoprazole 40 MG Tab.CR PO SCH (19:01)
[2020-08-01] MEDS: Digoxin 125 MCG Tab PO SCH (20:36)
[2020-08-01] MEDS: Donepezil 10 MG Tab PO SCH (20:36)
[2020-08-01] MEDS: Dorzolamide/Timolol 2%-0.5% Ophth Soln 10 ML Bottle EYEBOTH SCH (20:43)
[2020-08-02] MEDS: Dorzolamide/Timolol 2%-0.5% Ophth Soln 10 ML Bottle EYEBOTH SCH ×3 (00:32→20:16)
[2020-08-02] MEDS: Midodrine 5 MG Tab PO SCH ×4 (05:47→23:11)
[2020-08-02] MEDS: Pantoprazole 40 MG Tab.CR PO SCH ×2 (06:32→16:35)
[2020-08-02] MEDS: Levothyroxine 100 MCG Tab PO SCH (06:33)
[2020-08-02] MEDS: Finasteride 5 MG Tab PO SCH (09:11)
[2020-08-02] MEDS: Memantine 10 MG Tab PO SCH ×2 (09:11→20:13)
[2020-08-02] MEDS: Ferrous Sulfate 325 MG Tab PO SCH ×2 (09:11→20:13)
--- NOTE | 2020-08-02 11:55 | PCM.PN ---
- General Info Date of Service: 08/02/20 - Review of Systems Systems Review Comment:: no complaints, no pain - Patient Data Vitals - Most Recent: Last Vital Signs Temp 37.4 C 08/02/20 09:00 Pulse 70 08/02/20 09:00 Resp 16 08/02/20 09:00 BP 124/82 08/02/20 09:00 Pulse Ox 97 08/02/20 09:00 Weight - Most Recent: 49.986 kg I&O - Last 24 Hours: Intake & Output 08/01/20 08/02/20 08/02/20 22:59 06:59 14:59 Intake Total 750 Output Total 300 290 Balance -300 460 Lab Results Last 24 Hours: Laboratory Results - last 24 hr 08/02/20 Range/Units 05:50 INR 1.18 Med Orders - Current: Current Medications Digoxin (Lanoxin) 125 mcg PO BEDTIME [facility] Last Admin: 08/01/20 20:36 Dose: 125 mcg Documented by: Donepezil HCl (Aricept) 10 mg PO BEDTIME [facility] Last Admin: 08/01/20 20:36 Dose: 10 mg Documented by: Dorzolamide/Timolol (Cosopt 2%-0.5% Ophth Soln) 0 ml EYEBOTH BID [facility] Last Admin: 08/02/20 09:11 Dose: Not Given Documented by: Ferrous Sulfate (Ferrous Sulfate) 325 mg PO BID [facility] Last Admin: 08/02/20 09:11 Dose: 325 mg Documented by: Finasteride (Proscar) 5 mg PO DAILY [facility] Last Admin: 08/02/20 09:11 Dose: 5 mg Documented by: Levothyroxine Sodium (Synthroid) 100 mcg PO ACBREAKFAST [facility] Last Admin: 08/02/20 06:33 Dose: 100 mcg Documented by: Memantine (Namenda) 10 mg PO BID [facility] Last Admin: 08/02/20 09:11 Dose: 10 mg Documented by: Midodrine (Midodrine) 10 mg PO TID [facility] Last Admin: 08/02/20 06:32 Dose: 10 mg Documented by: Pantoprazole Sodium (Protonix) 40 mg PO BIDAC [facility] Last Admin: 08/02/20 06:32 Dose: 40 mg Documented by: Discontinued Medications Factor IX (Pha) (Kcentra) 5,000 unit IV NOW STA Stop: 07/30/20 15:14 Last Admin: 07/30/20 15:21 Dose: 5,000 unit Documented by: Factor IX (Pha) (Kcentra) 5,000 unit IV ONETIME ONE Stop: 07/30/20 15:13 Last Admin: 07/30/20 15:21 Dose: Not Given Documented by: Sodium Chloride (Normal Saline) 1,000 mls @ 500 mls/hr IV BOLUS ONE Stop: 07/30/20 14:04 Last Admin: 07/30/20 12:13 Dose: 500 mls/hr Documented by: Phytonadione 10 mg/ Sodium (Chloride) 51 mls @ 100 mls/hr IV NOW ONE Stop: 07/30/20 14:55 Last Admin: 07/30/20 15:18 Dose: 100 mls/hr Documented by: Sodium Chloride (Normal Saline) 1,000 mls @ 125 mls/hr IV ONETIME ONE Stop: 07/31/20 18:09 Last Admin: 07/31/20 10:47 Dose: 125 mls/hr Documented by: - Exam General: Alert, Oriented Lungs: Clear to Auscultation, Normal Respiratory Effort Cardiovascular: Regular Rate, Regular Rhythm GI/Abdominal Exam: Soft, Non-Tender, No Distention Extremities: Normal Inspection, Non-Tender, No Pedal Edema Skin: Warm, Dry, Intact Neurological: No New Focal Deficit Sepsis Event Note - Evaluation Sepsis Screening Result: No Definite Risk - Focused Exam Vital Signs: Vital Signs Temp Pulse Resp BP Pulse Ox 08/02/20 09:00 37.4 C 70 16 124/82 97 08/02/20 04:18 36.9 C 69 17 110/75 97 - Problem List Review Problem List Initiated/Reviewed/Updated: Yes - My Orders Last 24 Hours: My Active Orders 08/01/20 17:00 Pantoprazole [ProTONIX] 40 mg PO BIDAC 08/02/20 11:19 BMP [BASIC METABOLIC PANEL,BMP] [CHEM] Stat CBC WITH AUTO DIFF [HEME] Stat 08/03/20 05:11 BASIC METABOLIC PANEL,BMP [CHEM] AM CBC WITH AUTO DIFF [HEME] AM - Plan Plan:: Pt is a 89 y/o M with a PMH significant for mild-moderate dementia, A.fib, colon ca. Admitted for anemia secondary to gastrointestinal bleed, MADAN, and a supratherapeutic INR/PTT. 1. Anemia secondary to GI bleed due to previously known colon lesion: -s/p 3 units of pRBC, 2. MADAN: continue to monitor creatinine. 3.Supratheraputic INR - reversed with vitamin K, holding warfarin due to concerns of acute bleed Dispo: Spoke with family and plan on transferring to [facility] facility
[2020-08-02 12:00] LABS: CARBON DIOXIDE,CO2 17.5 mmol/L (21.0-32.0)
[2020-08-02] MEDS: Donepezil 10 MG Tab PO SCH (20:13)
[2020-08-02] MEDS: Digoxin 125 MCG Tab PO SCH (20:13)
[2020-08-03 06:36] LABS: CARBON DIOXIDE,CO2 17.2 mmol/L (21.0-32.0); POTASSIUM,K 3.7 mmol/L (3.5-5.1)
[2020-08-03] MEDS: Finasteride 5 MG Tab PO SCH (09:17)
[2020-08-03] MEDS: Levothyroxine 100 MCG Tab PO SCH (09:17)
[2020-08-03] MEDS: Pantoprazole 40 MG Tab.CR PO SCH ×2 (09:17→18:31)
[2020-08-03] MEDS: Memantine 10 MG Tab PO SCH ×2 (09:18→20:34)
[2020-08-03] MEDS: Ferrous Sulfate 325 MG Tab PO SCH ×2 (09:18→20:34)
--- NOTE | 2020-08-03 11:32 | PCM.PN ---
- General Info Date of Service: 08/03/20 - Review of Systems Systems Review Comment:: no pain, no fever - Patient Data Vitals - Most Recent: Last Vital Signs Temp 36.8 C 08/03/20 09:00 Pulse 70 08/03/20 09:00 Resp 15 08/03/20 09:00 BP 116/78 08/03/20 09:00 Pulse Ox 96 08/03/20 09:00 Weight - Most Recent: 49.986 kg I&O - Last 24 Hours: Intake & Output 08/02/20 08/03/20 08/03/20 22:59 06:59 14:59 Intake Total 119 500 Output Total 100 548 Balance 19 -48 Lab Results Last 24 Hours: Laboratory Results - last 24 hr 07/30/20 08/02/20 08/02/20 Range/Units 13:10 11:19 11:19 WBC 7.71 (4.0-11.0) K/uL RBC 3.17 L (4.50-5.90) M/uL Hgb 9.8 L (13.0-17.0) g/dL Hct 29.1 L (38.0-50.0) % MCV 91.8 (80.0-98.0) fL MCH 30.9 (27.0-32.0) pg MCHC 33.7 (31.0-37.0) g/dL RDW Std Deviation 54.8 (28.0-62.0) fl RDW Coeff of Jay 17 H (11.0-15.0) % Plt Count 94 L (150-400) K/uL MPV 10.00 (7.40-12.00) fL Neut % (Auto) 86.7 H (48.0-80.0) % Lymph % (Auto) 6.7 L (16.0-40.0) % [place] % (Auto) 6.5 (0.0-15.0) % Eos % (Auto) 0.1 (0.0-7.0) % Baso % (Auto) 0.0 (0.0-1.5) % Neut # (Auto) 6.7 H (1.4-5.7) K/uL Lymph # (Auto) 0.5 L (0.6-2.4) K/uL [place] # (Auto) 0.5 (0.0-0.8) K/uL Eos # (Auto) 0.0 (0.0-0.7) K/uL Baso # (Auto) 0.0 (0.0-0.1) K/uL Nucleated RBC % 0.0 /100WBC Nucleated RBCs # 0 K/uL Sodium 141 (136-148) mmol/L Potassium 4.0 (3.5-5.1) mmol/L Chloride 112 H (98-107) mmol/L Carbon Dioxide 17.5 L (21.0-32.0) mmol/L BUN 43 H (7.0-18.0) mg/dL Creatinine 1.7 H (0.8-1.3) mg/dL Est Cr Clr Drug Dosing 21.64 mL/min Estimated GFR (MDRD) 38.3 ml/min Glucose 82 (74-106) mg/dL Calcium 7.7 L (8.5-10.1) mg/dL Crossmatch See Detail 08/03/20 08/03/20 Range/Units 05:40 05:40 WBC 6.37 (4.0-11.0) K/uL RBC 3.00 L (4.50-5.90) M/uL Hgb 9.3 L (13.0-17.0) g/dL Hct 27.9 L (38.0-50.0) % MCV 93.0 (80.0-98.0) fL MCH 31.0 (27.0-32.0) pg MCHC 33.3 (31.0-37.0) g/dL RDW Std Deviation 55.7 (28.0-62.0) fl RDW Coeff of Jay 18 H (11.0-15.0) % Plt Count 91 L (150-400) K/uL MPV 9.70 (7.40-12.00) fL Neut % (Auto) 80.0 (48.0-80.0) % Lymph % (Auto) 9.6 L (16.0-40.0) % [place] % (Auto) 9.4 (0.0-15.0) % Eos % (Auto) 0.8 (0.0-7.0) % Baso % (Auto) 0.2 (0.0-1.5) % Neut # (Auto) 5.1 (1.4-5.7) K/uL Lymph # (Auto) 0.6 (0.6-2.4) K/uL Pick[place] # (Auto) 0.6 (0.0-0.8) K/uL Eos # (Auto) 0.1 (0.0-0.7) K/uL Baso # (Auto) 0.0 (0.0-0.1) K/uL Nucleated RBC % 0.0 /100WBC Nucleated RBCs # 0 K/uL Sodium 141 (136-148) mmol/L Potassium 3.7 (3.5-5.1) mmol/L Chloride 113 H (98-107) mmol/L Carbon Dioxide 17.2 L (21.0-32.0) mmol/L BUN 38 H (7.0-18.0) mg/dL Creatinine 1.6 H (0.8-1.3) mg/dL Est Cr Clr Drug Dosing 23.00 mL/min Estimated GFR (MDRD) 41.1 ml/min Glucose 80 (74-106) mg/dL Calcium 7.7 L (8.5-10.1) mg/dL Crossmatch Med Orders - Current: Current Medications Digoxin (Lanoxin) 125 mcg PO BEDTIME [facility] Last Admin: 08/02/20 20:13 Dose: 125 mcg Documented by: Donepezil HCl (Aricept) 10 mg PO BEDTIME [facility] Last Admin: 08/02/20 20:13 Dose: 10 mg Documented by: Dorzolamide/Timolol (Cosopt 2%-0.5% Ophth Soln) 0 ml EYEBOTH BID [facility] Last Admin: 08/02/20 20:16 Dose: Not Given Documented by: Ferrous Sulfate (Ferrous Sulfate) 325 mg PO BID [facility] Last Admin: 08/03/20 09:18 Dose: 325 mg Documented by: Finasteride (Proscar) 5 mg PO DAILY [facility] Last Admin: 08/03/20 09:17 Dose: 5 mg Documented by: Levothyroxine Sodium (Synthroid) 100 mcg PO ACBREAKFAST [facility] Last Admin: 08/03/20 09:17 Dose: 100 mcg Documented by: Memantine (Namenda) 10 mg PO BID [facility] Last Admin: 08/03/20 09:18 Dose: 10 mg Documented by: Midodrine (Midodrine) 10 mg PO TID [facility] Last Admin: 08/02/20 23:11 Dose: 10 mg Documented by: Pantoprazole Sodium (Protonix) 40 mg PO BIDAC [facility] Last Admin: 08/03/20 09:17 Dose: 40 mg Documented by: Discontinued Medications Factor IX (Pha) (Kcentra) 5,000 unit IV NOW STA Stop: 07/30/20 15:14 Last Admin: 07/30/20 15:21 Dose: 5,000 unit Documented by: Factor IX (Pha) (Kcentra) 5,000 unit IV ONETIME ONE Stop: 07/30/20 15:13 Last Admin: 07/30/20 15:21 Dose: Not Given Documented by: Sodium Chloride (Normal Saline) 1,000 mls @ 500 mls/hr IV BOLUS ONE Stop: 07/30/20 14:04 Last Admin: 07/30/20 12:13 Dose: 500 mls/hr Documented by: Phytonadione 10 mg/ Sodium (Chloride) 51 mls @ 100 mls/hr IV NOW ONE Stop: 07/30/20 14:55 Last Admin: 07/30/20 15:18 Dose: 100 mls/hr Documented by: Sodium Chloride (Normal Saline) 1,000 mls @ 125 mls/hr IV ONETIME ONE Stop: 07/31/20 18:09 Last Admin: 07/31/20 10:47 Dose: 125 mls/hr Documented by: - Exam General: Alert, Oriented Lungs: Clear to Auscultation, Normal Respiratory Effort Cardiovascular: Regular Rate, Regular Rhythm GI/Abdominal Exam: Soft, Non-Tender, No Distention Extremities: Non-Tender, No Pedal Edema Skin: Warm, Dry, Intact Neurological: No New Focal Deficit Sepsis Event Note - Evaluation Sepsis Screening Result: No Definite Risk - Focused Exam Vital Signs: Vital Signs Temp Pulse Resp BP Pulse Ox 08/03/20 09:00 36.8 C 70 15 116/78 96 08/03/20 04:53 36.9 C 77 16 144/92 H 98 08/03/20 00:40 37.2 C 70 20 129/79 97 - Problem List Review Problem List Initiated/Reviewed/Updated: Yes - My Orders Last 24 Hours: My Active Orders 08/04/20 05:11 BASIC METABOLIC PANEL,BMP [CHEM] AM CBC WITH AUTO DIFF [HEME] AM - Plan Plan:: Pt is a 89 y/o M with a PMH significant for mild-moderate dementia, A.fib, colon ca. Admitted for anemia secondary to gastrointestinal bleed, MADAN, and a supratherapeutic INR/PTT. 1. Anemia secondary to GI bleed due to previously known colon lesion: -s/p 3 units of pRBC, Hgb 9.3 today 2. MADAN: creatinine is 1.6 3.Supratheraputic INR - reversed with vitamin K, holding warfarin due to concerns of acute bleed Dispo: pending placement
[2020-08-03] MEDS: Midodrine 5 MG Tab PO SCH ×3 (13:44→22:44)
--- NOTE | 2020-08-03 19:48 | PCM.SN.2 ---
- Free Text/Narrative Note: Spoke with family again tonight. They are wanting palliative care when he transfers back to [place]. Family is concerned that they are not getting timely updates. Will speak with on coming hospitalist regarding families wishes and concerns.
[2020-08-03] MEDS: Digoxin 125 MCG Tab PO SCH (20:34)
[2020-08-03] MEDS: Donepezil 10 MG Tab PO SCH (20:34)
[2020-08-03] MEDS: Dorzolamide/Timolol 2%-0.5% Ophth Soln 10 ML Bottle EYEBOTH SCH (20:35)
[2020-08-04] MEDS: Midodrine 5 MG Tab PO SCH ×3 (06:27→21:16)
[2020-08-04] MEDS: Dorzolamide/Timolol 2%-0.5% Ophth Soln 10 ML Bottle EYEBOTH SCH ×3 (07:52→21:18)
[2020-08-04] MEDS: Pantoprazole 40 MG Tab.CR PO SCH ×2 (08:26→16:29)
[2020-08-04] MEDS: Finasteride 5 MG Tab PO SCH (08:26)
[2020-08-04] MEDS: Ferrous Sulfate 325 MG Tab PO SCH ×2 (08:26→21:18)
[2020-08-04] MEDS: Levothyroxine 100 MCG Tab PO SCH (08:26)
[2020-08-04] MEDS: Memantine 10 MG Tab PO SCH ×2 (08:26→21:16)
[2020-08-04 08:33] LABS: CARBON DIOXIDE,CO2 18.6 mmol/L (21.0-32.0); POTASSIUM,K 3.8 mmol/L (3.5-5.1)
--- NOTE | 2020-08-04 15:11 | PCM.PN ---
<Mesfin Peralta - Last Filed: 08/04/20 15:05> - General Info Date of Service: 08/04/20 Subjective Update: No complaints at bedside this morning. Denies any pain. - Patient Data Vitals - Most Recent: Last Vital Signs Temp 36.7 C 08/04/20 11:43 Pulse 70 08/04/20 11:43 Resp 12 08/04/20 11:43 BP 122/88 08/04/20 11:43 Pulse Ox 97 08/04/20 11:43 Weight - Most Recent: 49.986 kg I&O - Last 24 Hours: Intake & Output 08/04/20 08/04/20 08/04/20 06:59 14:59 22:59 Intake Total 550 Balance 550 Lab Results Last 24 Hours: Laboratory Results - last 24 hr 08/04/20 08/04/20 Range/Units 07:50 07:50 WBC 5.04 (4.0-11.0) K/uL RBC 3.01 L (4.50-5.90) M/uL Hgb 9.3 L (13.0-17.0) g/dL Hct 28.2 L (38.0-50.0) % MCV 93.7 (80.0-98.0) fL MCH 30.9 (27.0-32.0) pg MCHC 33.0 (31.0-37.0) g/dL RDW Std Deviation 59.0 (28.0-62.0) fl RDW Coeff of Jay 18 H (11.0-15.0) % Plt Count 86 L (150-400) K/uL MPV 10.30 (7.40-12.00) fL Neut % (Auto) 80.2 H (48.0-80.0) % Lymph % (Auto) 9.9 L (16.0-40.0) % [place] % (Auto) 9.5 (0.0-15.0) % Eos % (Auto) 0.4 (0.0-7.0) % Baso % (Auto) 0.0 (0.0-1.5) % Neut # (Auto) 4.0 (1.4-5.7) K/uL Lymph # (Auto) 0.5 L (0.6-2.4) K/uL [place] # (Auto) 0.5 (0.0-0.8) K/uL Eos # (Auto) 0.0 (0.0-0.7) K/uL Baso # (Auto) 0.0 (0.0-0.1) K/uL Nucleated RBC % 0.0 /100WBC Nucleated RBCs # 0 K/uL Sodium 142 (136-148) mmol/L Potassium 3.8 (3.5-5.1) mmol/L Chloride 112 H (98-107) mmol/L Carbon Dioxide 18.6 L (21.0-32.0) mmol/L BUN 32 H (7.0-18.0) mg/dL Creatinine 1.4 H (0.8-1.3) mg/dL Est Cr Clr Drug Dosing 26.28 mL/min Estimated GFR (MDRD) 47.9 ml/min Glucose 81 (74-106) mg/dL Calcium 8.0 L (8.5-10.1) mg/dL Med Orders - Current: Current Medications Digoxin (Lanoxin) 125 mcg PO BEDTIME [facility] Last Admin: 08/03/20 20:34 Dose: 125 mcg Documented by: Donepezil HCl (Aricept) 10 mg PO BEDTIME [facility] Last Admin: 08/03/20 20:34 Dose: 10 mg Documented by: Dorzolamide/Timolol (Cosopt 2%-0.5% Ophth Soln) 0 ml EYEBOTH BID [facility] Last Admin: 08/04/20 08:36 Dose: Not Given Documented by: Ferrous Sulfate (Ferrous Sulfate) 325 mg PO BID [facility] Last Admin: 08/04/20 08:26 Dose: 325 mg Documented by: Finasteride (Proscar) 5 mg PO DAILY [facility] Last Admin: 08/04/20 08:26 Dose: 5 mg Documented by: Levothyroxine Sodium (Synthroid) 100 mcg PO ACBREAKFAST [facility] Last Admin: 08/04/20 08:26 Dose: 100 mcg Documented by: Memantine (Namenda) 10 mg PO BID [facility] Last Admin: 08/04/20 08:26 Dose: 10 mg Documented by: Midodrine (Midodrine) 10 mg PO TID [facility] Last Admin: 08/04/20 14:22 Dose: 10 mg Documented by: Pantoprazole Sodium (Protonix) 40 mg PO BIDAC [facility] Last Admin: 08/04/20 08:26 Dose: 40 mg Documented by: Discontinued Medications Factor IX (Pha) (Kcentra) 5,000 unit IV NOW STA Stop: 07/30/20 15:14 Last Admin: 07/30/20 15:21 Dose: 5,000 unit Documented by: Factor IX (Pha) (Kcentra) 5,000 unit IV ONETIME ONE Stop: 07/30/20 15:13 Last Admin: 07/30/20 15:21 Dose: Not Given Documented by: Sodium Chloride (Normal Saline) 1,000 mls @ 500 mls/hr IV BOLUS ONE Stop: 07/30/20 14:04 Last Admin: 07/30/20 12:13 Dose: 500 mls/hr Documented by: Phytonadione 10 mg/ Sodium (Chloride) 51 mls @ 100 mls/hr IV NOW ONE Stop: 07/30/20 14:55 Last Admin: 07/30/20 15:18 Dose: 100 mls/hr Documented by: Sodium Chloride (Normal Saline) 1,000 mls @ 125 mls/hr IV ONETIME ONE Stop: 07/31/20 18:09 Last Admin: 07/31/20 10:47 Dose: 125 mls/hr Documented by: - Exam General: Alert, Cooperative Lungs: Clear to Auscultation, Normal Respiratory Effort Cardiovascular: Regular Rate, Regular Rhythm GI/Abdominal Exam: Normal Bowel Sounds, Soft, Non-Tender, No Distention Extremities: Normal Inspection, No Pedal Edema Sepsis Event Note - Evaluation Sepsis Screening Result: No Definite Risk - Focused Exam Vital Signs: Vital Signs Temp Pulse Resp BP Pulse Ox 08/04/20 11:43 36.7 C 70 12 122/88 97 08/04/20 07:35 37.2 C 69 12 127/85 96 08/04/20 04:00 36.9 C 70 18 119/83 96 - Problem List & Annotations (1) Symptomatic anemia SNOMED Code(s): 129877310 Code(s): D64.9 - ANEMIA, UNSPECIFIED Status: Acute (2) Acute kidney injury SNOMED Code(s): 76645849, 74021032 Code(s): N17.9 - ACUTE KIDNEY FAILURE, UNSPECIFIED Status: Acute (3) Supratherapeutic INR SNOMED Code(s): 761881947 Code(s): R79.1 - ABNORMAL COAGULATION PROFILE Status: Acute (4) Chronic a-fib SNOMED Code(s): 302295925 Code(s): I48.2 - CHRONIC ATRIAL FIBRILLATION * DO NOT USE * Status: Chronic Priority: High (5) Mild dementia SNOMED Code(s): 17865789 Code(s): F03.90 - UNSPECIFIED DEMENTIA WITHOUT BEHAVIORAL DISTURBANCE Status: Chronic Priority: High - Problem List Review Problem List Initiated/Reviewed/Updated: Yes - Plan Plan:: Assessment and Plan: 1. Anemia secondary to GI bleed due to previously known colon lesion s/p transfusion of 3 units PRBC's: - Hgb stable this AM. Warfarin held on admission. - Discussed with family regarding resuming anti-coagulation and they expressed wishes to not have this resumed. 2. MADAN, improving: - Creatinine is 1.4 today. 3. Supratherapeutic INR: - Reversed with vitamin K and warfarin held. 4. Case management to continue working on disposition. 5. Past medical history of dementia, atrial fibrillation, colon cancer, heart valve replacement and pacemaker. <Deyanira Combs - Last Filed: 08/06/20 13:02> - Patient Data Vitals - Most Recent: Last Vital Signs Temp 36.1 C 08/05/20 13:06 Pulse 70 08/05/20 13:06 Resp 15 08/05/20 13:06 BP 135/95 H 08/05/20 13:06 Pulse Ox 99 08/05/20 13:06 Med Orders - Current: Current Medications Discontinued Medications Digoxin (Lanoxin) 125 mcg PO BEDTIME [facility] Last Admin: 08/04/20 21:16 Dose: 125 mcg Documented by: Donepezil HCl (Aricept) 10 mg PO BEDTIME [facility] Last Admin: 08/04/20 21:16 Dose: 10 mg Documented by: Dorzolamide/Timolol (Cosopt 2%-0.5% Ophth Soln) 0 ml EYEBOTH BID [facility] Last Admin: 08/05/20 08:50 Dose: Not Given Documented by: Factor IX (Pha) (Kcentra) 5,000 unit IV NOW STA Stop: 07/30/20 15:14 Last Admin: 07/30/20 15:21 Dose: 5,000 unit Documented by: Factor IX (Pha) (Kcentra) 5,000 unit IV ONETIME ONE Stop: 07/30/20 15:13 Last Admin: 07/30/20 15:21 Dose: Not Given Documented by: Ferrous Sulfate (Ferrous Sulfate) 325 mg PO BID [facility] Last Admin: 08/05/20 08:49 Dose: 325 mg Documented by: Finasteride (Proscar) 5 mg PO DAILY [facility] Last Admin: 08/05/20 08:49 Dose: 5 mg Documented by: Sodium Chloride (Normal Saline) 1,000 mls @ 500 mls/hr IV BOLUS ONE Stop: 07/30/20 14:04 Last Admin: 07/30/20 12:13 Dose: 500 mls/hr Documented by: Phytonadione 10 mg/ Sodium (Chloride) 51 mls @ 100 mls/hr IV NOW ONE Stop: 07/30/20 14:55 Last Admin: 07/30/20 15:18 Dose: 100 mls/hr Documented by: Sodium Chloride (Normal Saline) 1,000 mls @ 125 mls/hr IV ONETIME ONE Stop: 07/31/20 18:09 Last Admin: 07/31/20 10:47 Dose: 125 mls/hr Documented by: Levothyroxine Sodium (Synthroid) 100 mcg PO ACBREAKFAST [facility] Last Admin: 08/05/20 07:32 Dose: 100 mcg Documented by: Memantine (Namenda) 10 mg PO BID [facility] Last Admin: 08/05/20 08:49 Dose: 10 mg Documented by: Midodrine (Midodrine) 10 mg PO TID [facility] Last Admin: 08/05/20 07:00 Dose: 10 mg Documented by: Pantoprazole Sodium (Protonix) 40 mg PO BIDAC [facility] Last Admin: 08/05/20 07:32 Dose: 40 mg Documented by: - Plan Plan:: I have seen and evaluated the patient and agree with the residents note unless specified in my note
[2020-08-04] MEDS: Donepezil 10 MG Tab PO SCH (21:16)
[2020-08-04] MEDS: Digoxin 125 MCG Tab PO SCH (21:16)
[2020-08-05] MEDS: Midodrine 5 MG Tab PO SCH (07:00)
[2020-08-05] MEDS: Levothyroxine 100 MCG Tab PO SCH (07:32)
[2020-08-05] MEDS: Pantoprazole 40 MG Tab.CR PO SCH (07:32)
[2020-08-05 08:28] VITALS: PULSE 70
[2020-08-05] MEDS: Ferrous Sulfate 325 MG Tab PO SCH (08:49)
[2020-08-05] MEDS: Finasteride 5 MG Tab PO SCH (08:49)
[2020-08-05] MEDS: Memantine 10 MG Tab PO SCH (08:49)
[2020-08-05] MEDS: Dorzolamide/Timolol 2%-0.5% Ophth Soln 10 ML Bottle EYEBOTH SCH (08:50)
[2020-08-05 13:09] VITALS: BP 135/95
--- NOTE | 2020-08-05 13:57 | PCM.DCSUM1 ---
<Mesfin Peralta - Last Filed: 08/05/20 16:07> Discharge Summary - Hospital Course Free Text/Narrative:: 89-year-old male admitted for anemia and supratherapeutic INR. He has a PMH of dementia, colon cancer, atrial fibrillation on warfarin, heart valve replacement and pacemaker. Patient reportedly has had issues with GI bleeding in the past with history of colon lesion. Patient's warfarin was held on admission as was significantly elevated and could not be computed. INR reversed with vitamin K. Patient's hemoglobin was 6.1 and was transfused with 3 units of PRBC's. His hemoglobin remained stable through the rest of his hospitalization. Patient also noted to have MADAN which improved slowly. Creatinine was 1.4 on day of discharge. Discussion was held with family about risks vs benefits of continuing warfarin therapy and they decided that warfarin should be discontinued. He was noted to be very frail, with poor appetite and had difficulty ambulating. Patient was accepted into [facility]. Family would like to pursue palliative/comfort measure once transitioned to [facility]. Patient discharged in stable condition. - Discharge Data Discharge Date: 08/05/20 Discharge Disposition: DC/Tfer to SNF 03 Condition: Stable - Referral to Home Health Primary Care Physician: Sravan Eubanks MD - Discharge Diagnosis/Problem(s) (1) Symptomatic anemia SNOMED Code(s): 300611381 ICD Code: D64.9 - ANEMIA, UNSPECIFIED Status: Acute (2) Acute kidney injury SNOMED Code(s): 01409312, 65736383 ICD Code: N17.9 - ACUTE KIDNEY FAILURE, UNSPECIFIED Status: Acute (3) Supratherapeutic INR SNOMED Code(s): 214317500 ICD Code: R79.1 - ABNORMAL COAGULATION PROFILE Status: Acute (4) Chronic a-fib SNOMED Code(s): 839646622 ICD Code: I48.2 - CHRONIC ATRIAL FIBRILLATION * DO NOT USE * Status: Chronic Priority: High (5) Mild dementia SNOMED Code(s): 96595420 ICD Code: F03.90 - UNSPECIFIED DEMENTIA WITHOUT BEHAVIORAL DISTURBANCE Status: Chronic Priority: High - Patient Summary/Data Consults: Consultations 07/31/20 10:12 PT Evaluation and Treatment [CONS] Routine 07/31/20 11:15 Consult to Case Management/Provider Engagement Executive [CONS] Routine - Patient Instructions Diet: Regular Diet as Tolerated Activity: As Tolerated Notify Provider of: Fever, Increased Pain, Swelling and Redness, Drainage, Nausea and/or Vomiting Other/Special Instructions: PT/OT/ST - Discharge Plan *PRESCRIPTION DRUG MONITORING PROGRAM REVIEWED*: Not Applicable *COPY OF PRESCRIPTION DRUG MONITORING REPORT IN PATIENT NOVA: Not Applicable Prescriptions/Med Rec: Pantoprazole [ProTONIX] 40 mg PO BID 7 Days #14 tab.cr Home Medications: Home Meds Digoxin 125 mcg PO BEDTIME 05/24/15 [History] Donepezil [Aricept] 10 mg PO BEDTIME 09/03/15 [History] Lutein/Minerals/Vit A,C & E [Ocuvite] 1 each PO BID 09/03/15 [History] Memantine [Namenda] 10 mg PO BID 09/03/15 [History] Multivitamin [Multi-Vitamin Daily] 1 each PO BEDTIME 09/03/15 [History] Alum Hydrox/Mag Hydrox/Simeth [Maalox Advanced] 30 ml PO QID PRN 11/16/18 [History] Ferrous Sulfate 1 tab PO BID 11/16/18 [History] Loperamide [Imodium] 2 mg PO QID PRN 11/16/18 [History] Magnesium Hydroxide [Milk of Magnesia] 30 ml PO DAILY PRN 11/16/18 [History] Midodrine 10 mg PO TID 11/16/18 [History] Acetaminophen 650 mg PO Q4H PRN 07/30/20 [History] Calc/D3/Mag/Zn/Huma/Mg/Cades [Calcium 600 MG Plus Vit D] 1 tab PO BID 07/30/20 [History] Carboxymethylcellulose Sodium [Artificial Tears] 1 drop EYEBOTH Q6H PRN 07/30/20 [History] Dorzolamide/Timolol [Cosopt 2%-0.5% Ophth Soln] 1 drop EYEBOTH BID 07/30/20 [History] Finasteride 5 mg PO DAILY 07/30/20 [History] Latanoprost/Pf [Latanoprost 0.005% Eye Drop] 1 drop EYEBOTH BEDTIME 07/30/20 [History] Levothyroxine Sodium [Levoxyl] 100 mcg PO ACBREAKFAST 07/30/20 [History] Loperamide [Imodium] 4 mg PO .FIRST LOOSE STOOL PRN 07/30/20 [History] Non-Formulary Medication [NF Drug] 20 mg PO .PREVAGEN DAILY 07/30/20 [History] Pantoprazole [ProTONIX] 40 mg PO BID 7 Days #14 tab.cr 08/05/20 [Rx] Oxygen Therapy Mode: Room Air Referrals: Sravan Eubanks MD [Primary Care Provider] - 08/07/20 10:15 am - Discharge Summary/Plan Comment DC Time >30 min.: No - Patient Data Vitals - Most Recent: Last Vital Signs Temp 36.1 C 08/05/20 13:06 Pulse 70 08/05/20 13:06 Resp 15 08/05/20 13:06 BP 135/95 H 08/05/20 13:06 Pulse Ox 99 08/05/20 13:06 Weight - Most Recent: 49.986 kg I&O - Last 24 hours: Intake & Output 08/04/20 08/05/20 08/05/20 22:59 06:59 14:59 Intake Total 300 Balance 300 Lab Results - Last 24 hrs: Laboratory Results - last 24 hr 08/05/20 Range/Units 08:34 SARS-CoV-2 RNA (DANIEL) NEGATIVE (NEGATIVE) Med Orders - Current: Current Medications Digoxin (Lanoxin) 125 mcg PO BEDTIME [facility] Last Admin: 08/04/20 21:16 Dose: 125 mcg Documented by: Donepezil HCl (Aricept) 10 mg PO BEDTIME [facility] Last Admin: 08/04/20 21:16 Dose: 10 mg Documented by: Dorzolamide/Timolol (Cosopt 2%-0.5% Ophth Soln) 0 ml EYEBOTH BID [facility] Last Admin: 08/05/20 08:50 Dose: Not Given Documented by: Ferrous Sulfate (Ferrous Sulfate) 325 mg PO BID [facility] Last Admin: 08/05/20 08:49 Dose: 325 mg Documented by: Finasteride (Proscar) 5 mg PO DAILY [facility] Last Admin: 08/05/20 08:49 Dose: 5 mg Documented by: Levothyroxine Sodium (Synthroid) 100 mcg PO ACBREAKFAST [facility] Last Admin: 08/05/20 07:32 Dose: 100 mcg Documented by: Memantine (Namenda) 10 mg PO BID [facility] Last Admin: 08/05/20 08:49 Dose: 10 mg Documented by: Midodrine (Midodrine) 10 mg PO TID [facility] Last Admin: 08/05/20 07:00 Dose: 10 mg Documented by: Pantoprazole Sodium (Protonix) 40 mg PO BIDAC [facility] Last Admin: 08/05/20 07:32 Dose: 40 mg Documented by: Discontinued Medications Factor IX (Pha) (Kcentra) 5,000 unit IV NOW STA Stop: 07/30/20 15:14 Last Admin: 07/30/20 15:21 Dose: 5,000 unit Documented by: Factor IX (Pha) (Kcentra) 5,000 unit IV ONETIME ONE Stop: 07/30/20 15:13 Last Admin: 07/30/20 15:21 Dose: Not Given Documented by: Sodium Chloride (Normal Saline) 1,000 mls @ 500 mls/hr IV BOLUS ONE Stop: 07/30/20 14:04 Last Admin: 07/30/20 12:13 Dose: 500 mls/hr Documented by: Phytonadione 10 mg/ Sodium (Chloride) 51 mls @ 100 mls/hr IV NOW ONE Stop: 07/30/20 14:55 Last Admin: 07/30/20 15:18 Dose: 100 mls/hr Documented by: Sodium Chloride (Normal Saline) 1,000 mls @ 125 mls/hr IV ONETIME ONE Stop: 07/31/20 18:09 Last Admin: 07/31/20 10:47 Dose: 125 mls/hr Documented by: <Deyanira Combs - Last Filed: 08/06/20 13:18> Discharge Summary - Hospital Course Free Text/Narrative:: I have seen and evaluated the patient and agree with the residents note unless specified in my note - Referral to Home Health Primary Care Physician: Sravan Eubanks MD - Patient Summary/Data Consults: Consultations 07/31/20 10:12 PT Evaluation and Treatment [CONS] Routine 07/31/20 11:15 Consult to Case Management/Provider Engagement Executive [CONS] Routine - Patient Data Vitals - Most Recent: Last Vital Signs Temp 36.1 C 08/05/20 13:06 Pulse 70 08/05/20 13:06 Resp 15 08/05/20 13:06 BP 135/95 H 08/05/20 13:06 Pulse Ox 99 10/28/20 13:06 Med Orders - Current: Current Medications Discontinued Medications Digoxin (Lanoxin) 125 mcg PO BEDTIME [facility] Last Admin: 08/04/20 21:16 Dose: 125 mcg Documented by: Donepezil HCl (Aricept) 10 mg PO BEDTIME [facility] Last Admin: 08/04/20 21:16 Dose: 10 mg Documented by: Dorzolamide/Timolol (Cosopt 2%-0.5% Ophth Soln) 0 ml EYEBOTH BID [facility] Last Admin: 08/05/20 08:50 Dose: Not Given Documented by: Factor IX (Pha) (Kcentra) 5,000 unit IV NOW STA Stop: 07/30/20 15:14 Last Admin: 07/30/20 15:21 Dose: 5,000 unit Documented by: Factor IX (Pha) (Kcentra) 5,000 unit IV ONETIME ONE Stop: 07/30/20 15:13 Last Admin: 07/30/20 15:21 Dose: Not Given Documented by: Ferrous Sulfate (Ferrous Sulfate) 325 mg PO BID [facility] Last Admin: 08/05/20 08:49 Dose: 325 mg Documented by: Finasteride (Proscar) 5 mg PO DAILY [facility] Last Admin: 08/05/20 08:49 Dose: 5 mg Documented by: Sodium Chloride (Normal Saline) 1,000 mls @ 500 mls/hr IV BOLUS ONE Stop: 07/30/20 14:04 Last Admin: 07/30/20 12:13 Dose: 500 mls/hr Documented by: Phytonadione 10 mg/ Sodium (Chloride) 51 mls @ 100 mls/hr IV NOW ONE Stop: 07/30/20 14:55 Last Admin: 07/30/20 15:18 Dose: 100 mls/hr Documented by: Sodium Chloride (Normal Saline) 1,000 mls @ 125 mls/hr IV ONETIME ONE Stop: 07/31/20 18:09 Last Admin: 07/31/20 10:47 Dose: 125 mls/hr Documented by: Levothyroxine Sodium (Synthroid) 100 mcg PO ACBREAKFAST [facility] Last Admin: 08/05/20 07:32 Dose: 100 mcg Documented by: Memantine (Namenda) 10 mg PO BID [facility] Last Admin: 08/05/20 08:49 Dose: 10 mg Documented by: Midodrine (Midodrine) 10 mg PO TID [facility] Last Admin: 08/05/20 07:00 Dose: 10 mg Documented by: Pantoprazole Sodium (Protonix) 40 mg PO BIDAC [facility] Last Admin: 08/05/20 07:32 Dose: 40 mg Documented by:
== END 2020-08-05 13:45 | DRG 812 ==
LOC: MW.ED 11:36 → MW.MS 15:09
PROVIDERS: ADMIT Internal Medicine; ATTEND Internal Medicine
PROC: 30233N1 Transfusion of Nonautologous Red Blood Cells into Peripheral Vein, Percutaneous Approach (ICD-10-PCS; principal; 2020-07-30)
DX: D64.9 Anemia, unspecified (principal); N17.9 Acute kidney failure, unspecified; I48.20 Chronic atrial fibrillation, unspecified; K92.2 Gastrointestinal hemorrhage, unspecified; E87.2 Acidosis; I48.91 Unspecified atrial fibrillation; D68.8 Other specified coagulation defects; C18.9 Malignant neoplasm of colon, unspecified; Z66 Do not resuscitate; Z51.5 Encounter for palliative care; R79.1 Abnormal coagulation profile; F03.90 Unspecified dementia, unspecified severity, without behavioral disturbance, psychotic disturbance, mood disturbance, and anxiety; M19.90 Unspecified osteoarthritis, unspecified site; E03.9 Hypothyroidism, unspecified; Z20.828 Contact with and (suspected) exposure to other viral communicable diseases; Z95.2 Presence of prosthetic heart valve; Z95.0 Presence of cardiac pacemaker; Z79.890 Hormone replacement therapy; Z79.01 Long term (current) use of anticoagulants; Z79.899 Other long term (current) drug therapy
CPT/HCPCS: 36415; 71045; 80053; 82803; 83605; 83690; 84484; 85025; 85384; 85610; 85730; 86850; 86900; 86901; 86920 ×2; 86921 ×2; 86922 ×2; 93005; 99285; J7030; U0002; 36430; 70450; 70450-26; 80048; 81001; 85014; 85018; 97110-GP; 97161-GP; 97530-GP; 99222; 99231; 99232; 99238; A9270-GY; C9132; J3430; P9016